=== PATIENT | female | born 1985 | race Asian ===

== ENCOUNTER 2019-09-07 15:32 | Emergency (ER) | payer MEDICAID, SELFPAY ==
--- NOTE | 2019-09-07 15:42 | ED.GENADULT ---
HPI - General Adult General Chief complaint: Nausea/Vomiting/Diarrhea Stated complaint: nausea/vomiting Time Seen by Provider: 09/07/19 15:43 Source: patient Mode of arrival: ambulatory Limitations: no limitations History of Present Illness HPI narrative: 34-year-old female patient presents to the [facility] with complaints of nausea and vomiting for the past couple of days. Patient denies any abdominal pain. Denies any fevers, ear pain, sore throat. Denies any chest pain or shortness of breath. Patient states that she thinks her last period was sometime in June but is not sure. Patient denies any previous pregnancies, abortions or miscarriages. Related Data Allergies Allergy/AdvReac Type Severity Reaction Status Date / Time No Known Allergies Allergy Verified 09/07/19 15:35 Review of Systems Review of Systems: Narrative: CONSTITUTIONAL: Denies fever, chills, or sweats. EYES: Denies visual changes, redness, or discharge. ENT: Denies rhinorrhea, congestion, sore throat, or otalgia. CARDIOVASCULAR: Denies chest pain, palpitations, or edema. RESPIRATORY: Denies cough or dyspnea. GASTROINTESTINAL: Denies abdominal pain, positive nausea, vomiting, denies diarrhea. GENITOURINARY: Denies dysuria or hematuria. SKIN: Denies rash or itching. MUSCULOSKELETAL: Denies back pain, joint pain, or myalgia. NEUROLOGIC: Denies headache, numbness, or weakness. PSYCHIATRIC: Denies anxiety or depression. PMFSH Social History Social History Gender identity (if verbalized by the patient): Female Comments At the time of my signature I agree with nursing past medical history, surgical, social, and family history. There is no relevant family history pertinent to the presenting complaint. Exam Narrative: Exam Narrative: GENERAL: Well-appearing, well-nourished, and in no acute distress. HEAD: Normocephalic, atraumatic. EYES: PERRLA and EOMI. ENT: Nares clear, no rhinorrhea or epistaxis. Mucous membranes moist. NECK: Supple. No lymphadenopathy CHEST: Clear to auscultation. No respiratory distress. HEART: Regular rate and rhythm. No murmur heard. Normal peripheral pulses. ABDOMEN: Soft, flat, nondistended. No guarding, rebound tenderness, or rigid. No pulsatilla masses. Bowel sounds present in all four quadrants. No organomegaly. Negative Chong?s sign. No periumbicial tenderness. No Supra public tenderness or distension. Good femoral pulses bilaterally. No hernia noted. No scars or surface trauma. EXTREMITIES: Normal range of motion. No edema. SKIN: Warm, dry, no rash. NEURO: No focal deficits. Alert and oriented x3. Course Vital Signs Vital signs: Vital Signs Temperature 36.6 C 09/07/19 15:43 Pulse Rate 84 09/07/19 15:43 Respiratory Rate 09/07/19 15:43 Blood Pressure 140/86 09/07/19 15:43 Pulse Oximetry 100 09/07/19 15:43 Temperature 36.6 C 09/07/19 15:43 Pulse Rate 84 09/07/19 15:43 Respiratory Rate 09/07/19 15:43 Blood Pressure 140/86 09/07/19 15:43 Pulse Oximetry 100 09/07/19 15:43 Vital signs reviewed. The patient has been informed that they may have pre-hypertension or Hypertension based on a BP reading in the department. I recommend that the patient call the primary care provider listed on their discharge instructions or a physician of their choice this week to arrange follow up for further evaluation of possible pre-hypertension or Hypertension Medical Decision Making Differential Diagnosis Differential Diagnosis: Differential diagnosis: Appendicitis, ovarian torsion, gallbladder disease, ovarian torsion, pancreatitis, lower lobe pneumonia,AAA, AMI or ACS, DKA, diverticulitis. Discussed with patient that her test today is positive. Discussed with her that her urine dip looks good today. Discussed with her most likely the nausea and vomiting is due to the first trimester . Discussed with patient that I will discharg
[2019-09-07 15:43] VITALS: BP 140/86; PULSE 84; RESP 20; TEMP 36.6; O2SAT 100
== END 2019-09-07 16:15 | disposition home or self-care (01) ==
PROVIDERS: Emergency Provider Nurse Practitioner Family
DX: O21.9 Vomiting of pregnancy, unspecified (principal); Z3A.00 Weeks of gestation of pregnancy not specified
CPT/HCPCS: 81003; 81025; 99213; G0463

== ENCOUNTER 2021-01-05 15:24 | Emergency (ER) | payer OTHER, SELFPAY ==
[2021-01-05 15:28] VITALS: BP 163/99; PULSE 103; RESP 17; TEMP 36.3; O2SAT 100
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
[2021-01-05 16:00] VITALS: BP 157/80; PULSE 77; RESP 20; O2SAT 100
== END 2021-01-05 16:25 | disposition home or self-care (01) ==
PROVIDERS: Emergency Provider Emergency Medicine
DX: S13.9XXA Sprain of joints and ligaments of unspecified parts of neck, initial encounter (principal); V49.49XA Driver injured in collision with other motor vehicles in traffic accident, initial encounter; Y92.481 Parking lot as the place of occurrence of the external cause
CPT/HCPCS: 99282

== ENCOUNTER 2021-03-18 12:22 | Emergency (ER) | payer OTHER, SELFPAY ==
--- NOTE | 2021-03-18 12:27 | ED.GENADULT ---
HPI - General Adult General Chief complaint: Arrhythmia/Palpitations Stated complaint: Chest pain Time Seen by Provider: 03/18/21 12:27 Source: patient Mode of arrival: ambulatory Limitations: no limitations History of Present Illness HPI narrative: 36-year-old female patient presents to the [facility] with complaints of palpitations that started this morning. Patient states she woke up feeling kind of lightheaded and immediately started having some palpitations. Patient denies any of these symptoms before. Denies any past medical history, medications. Patient states she does have a family history of hypertension. Patient states she recently tried to get off coughing with the green tea but did have some coffee today. Denies any chest pain, shortness of breath or vision changes at this time but continues to have lightheadedness and dizziness. Related Data Allergies Allergy/AdvReac Type Severity Reaction Status Date / Time No Known Allergies Allergy Verified 09/07/19 15:35 Review of Systems Review of Systems: CONSTITUTIONAL: Denies fever, chills, or sweats. EYES: Denies visual changes, redness, or discharge. ENT: Denies rhinorrhea, congestion, sore throat, or otalgia. CARDIOVASCULAR: Denies chest pain, positive palpitations, denies edema. RESPIRATORY: Denies cough or dyspnea. GASTROINTESTINAL: Denies abdominal pain, nausea, vomiting, or diarrhea. GENITOURINARY: Denies dysuria or hematuria. SKIN: Denies rash or itching. MUSCULOSKELETAL: Denies back pain, joint pain, or myalgia. NEUROLOGIC: Denies headache, numbness, or weakness. PSYCHIATRIC: Denies anxiety or depression. PMFSH Past Medical History Medical History (Updated 03/18/21 @ 13:01 by LEONARDA Espinosa) No significant past medical history Family History Family History (Updated 03/18/21 @ 12:54 by LEOANRDA Espinosa) Other Hypertension Social History Social History Gender identity (if verbalized by the patient): Female Comments At the time of my signature I agree with nursing past medical history, surgical, social, and family history. There is no relevant family history pertinent to the presenting complaint. Exam Narrative: GENERAL: Well-appearing, well-nourished, and in no acute distress. HEAD: Normocephalic, atraumatic. EYES: PERRLA and EOMI. ENT: Nares clear, no rhinorrhea or epistaxis. Mucous membranes moist. NECK: Supple. No lymphadenopathy CHEST: Clear to auscultation. No respiratory distress. Patient able talk in clear complete sentences HEART: Tachycardia rate and sinus rhythm. No murmur heard. Normal peripheral pulses. ABDOMEN: Soft, nontender, nondistended, normal active bowel sounds. EXTREMITIES: Normal range of motion. No edema. SKIN: Warm, dry, no rash. NEURO: No focal deficits. Alert and oriented x3. Course Course Level of Care: Express Care Visit Vital Signs Vital signs: Vital Signs Temperature 36.5 C 03/18/21 12:38 Pulse Rate 140 H 03/18/21 12:38 Respiratory Rate 20 03/18/21 12:38 Blood Pressure 166/96 H 03/18/21 12:38 Pulse Oximetry 100 03/18/21 12:38 Temperature 36.5 C 03/18/21 12:38 Pulse Rate 140 H 03/18/21 12:38 Respiratory Rate 20 03/18/21 12:38 Blood Pressure 166/96 H 03/18/21 12:38 Pulse Oximetry 100 03/18/21 12:38 Vital signs reviewed The patient has been informed that they may have pre-hypertension or Hypertension based on a BP reading in the department. I recommend that the patient call the primary care provider listed on their discharge instructions or a physician of their choice this week to arrange follow up for further evaluation of possible pre-hypertension or Hypertension Transfer Transfered to: [facility]: [facility] Transfer rationale: Palpitations with lightheadedness and dizziness Accepting physician: Dr. Valverde Transfer comments: Report given to Armando Matthews NP at [facility]. Discussed with them that
[2021-03-18 12:38] VITALS: BP 166/96; PULSE 140; RESP 20; TEMP 36.5; O2SAT 100
--- NOTE | 2021-03-18 12:39 | ECG_ITS ---
Measurements Intervals [place] Rate: 114 P: 61 KS: 200 QRS: 40 QRSD: 108 T: 31 QT: 309 QTc: 426 Interpretive Statements SINUS TACHYCARDIA BASELINE ARTIFACT- II, III, AVR, AVF, V1, V3-V6 ABNORMAL ECG Electronically Signed On 03-18-2021 14:59:37 STEELER by Taz Gordon D.O.
== END 2021-03-18 13:01 | disposition short-term general hospital (02) ==
PROVIDERS: Emergency Provider Nurse Practitioner Family
DX: R00.2 Palpitations (principal); R00.0 Tachycardia, unspecified
CPT/HCPCS: 93005; 99215; G0463

== ENCOUNTER 2021-03-18 13:17 | Observation (INO) | payer OTHER, SELFPAY ==
[2021-03-18] VITALS (30 sets, daily range): BP systolic 139–166; BP diastolic 86–101; PULSE 98–135; RESP 10–24; TEMP 36–36.9; O2SAT 77–100; BMI 20.1
--- NOTE | ~2021-03-18 | CT_ITS ---
EXAMINATION: CTA chest PE protocol DATE: 03/18/2021 15:07 INDICATION: Heart palpitations TECHNIQUE: Computed tomography angiography (CTA) of the chest was performed with 100 mL Omnipaque-350 intravenous contrast timed to evaluate the pulmonary arteries. Coronal maximum intensity projection 3D-reconstructions were created by the technologist. The dose-length product (DLP) was 165.30 mGy-cm. Automated exposure control and iterative reconstruction technique were employed. COMPARISON: None. FINDINGS: The pulmonary arteries are well-opacified. No pulmonary embolism is identified. Respiratory motion artifact slightly limits the examination. Calcified nodules and scarring in the superior segm ent of the right lower lobe likely reflect prior infection. The lungs are free of focal airspace opac ities. There is no pleural effusion or pneumothorax. No pathologically enlarged thoracic lymph nodes are identified. The heart size is normal. IMPRESSION: 1. No pulmonary embolism or acute cardiopulmonary abnormality. Reviewed, dictated and finalized at location F. TRONICS ENGINEERING PROFESSOR
--- NOTE | ~2021-03-18 | XR_ITS ---
EXAMINATION: XR chest 2V DATE: 03/18/2021 14:25 INDICATION: Heart palpitations, mild chills TECHNIQUE: PA and lateral views of the chest are obtained. COMPARISON: None available FINDINGS: The lungs are free of acute opacities. There is no pleural effusion or pneumothorax. The ca rdiomediastinal silhouette is normal. The visualized bones and soft tissues are unremarkable. IMPRESSION: 1. No acute cardiopulmonary abnormality. Reviewed, dictated and finalized at location F. ONAL GUIDE
--- NOTE | 2021-03-18 13:25 | ECG_ITS ---
Measurements Intervals [place] Rate: 130 P: 57 PA: 182 QRS: 40 QRSD: 96 T: 47 QT: 278 QTc: 409 Interpretive Statements SINUS TACHYCARDIA BORDERLINE ST-T WAVE ABNORMALITY- ANTEROLAT/INF LEADS BASELINE ARTIFACT- I, II, III, AVR, AVL, AVF ABNORMAL ECG Electronically Signed On 03-19-2021 7:09:15 WIRE HANGER by Taz Gordon D.O.
[2021-03-18 14:16] LABS: Basophils Absolute Auto 0.1 K/mm3 (0.0-0.1); Basophils Percent Auto 0.4 % (0.2-1.2); Eosinophils Percent Auto 0.2 % (0-4.4); Hematocrit 40.3 % (37.0-47.0); Hemoglobin 13.6 g/dL (12.0-15.0); Immature Granulocyte Absolute 0.06 K/mm3 (0.00-0.031); Immature Granulocyte Percent A 0.5 % (0-0.5); Lymphocytes Absolute Auto 1.52 K/mm3 (0.9-3.2); Lymphocytes Percent Auto 12.9 % (18.3-44.2); Mean Corpuscular HGB Conc 33.7 g/dl (32-36); Mean Corpuscular Hemoglobin 31.6 pg (26-34); Mean Corpuscular Volume 93.5 fl (80-100); Mean Platelet Volume 9.6 fl (7.4-10.4); Monocytes Absolute Auto 0.7 K/mm3 (0.1-0.6); Monocytes Percent Auto 5.5 % (2.6-8.5); Neutrophils Absolute Auto 9.5 K/mm3 (1.3-6.7); Neutrophils Percent Auto 80.5 % (45.5-73.1); Platelet Count Result 346 k/mm3 (150-375); Red Blood Count 4.31 M/mm3 (4.2-5.4); Red Cell Distribution Width 12.2 % (11.5-14.5); White Blood Count 11.8 K/mm3 (4.5-10.0)
[2021-03-18 14:25] LABS: Partial Thromboplastin Time 26.9 SECONDS (22.3-36.8); Prothrombin Time 12.8 Seconds (11.1-14.7)
[2021-03-18] MEDS: SODIUM CHLORIDE 0.9% IV 1,000 ML 999 ML IV CONT (14:28)
[2021-03-18 14:29] LABS: Alanine Aminotransferase 34 U/L (4-35); Albumin Level 4.4 g/dL (3.5-5.1); Alkaline Phosphatase 60 U/L (38-126); Anion Gap 12 mmol/L (8-16); Aspartate Amino Transferase 44 U/L (14-36); Bilirubin,Total 0.4 mg/dL (0.2-1.3); Blood Urea Nitrogen 12 mg/dL (7-17); Calcium 8.6 mg/dL (8.4-10.2); Carbon Dioxide 22 mmol/L (22-30); Chloride 100 mmol/L (98-107); Estimated Glomerular Filt Rate > 60; Glucose 137 mg/dL (65-110); Potassium 3.4 mmol/L (3.4-5.0); Sodium 134 mmol/L (137-145)
--- NOTE | 2021-03-18 14:32 | ED.ARRPALP ---
HPI - Arrhythmia/Palpitations General Chief Complaint: Arrhythmia/Palpitations Stated Complaint: Palpitations Time Seen by Provider: 03/18/21 13:25 History of Present Illness HPI narrative: Patient is a 36-year-old female who presents ER with palpitations. Reports she was sitting at home around 1130 when her heart started racing. No chest pain or difficulty with breathing. Patient was lightheaded but had no loss of consciousness. No weight loss. Reports she did drink some coffee today. Has not had similar symptoms previously. Originally went to urgent care but was referred here. Denies lower extremity swelling. No cough/fever/chills. Related Data Allergies Allergy/AdvReac Type Severity Reaction Status Date / Time No Known Allergies Allergy Verified 09/07/19 15:35 Review of Systems Review of Systems: All systems reviewed & are unremarkable except as noted in HPI and below Constitutional: Constitutional: Denies chills, Denies fever(s) and Denies weakness ENT: Denies nasal congestion and Denies sore throat Cardiovascular: Cardiovascular: Denies chest pain, Reports rapid heart rate and Denies radiating jaw, neck or arm pain Respiratory: Respiratory: Denies cough, Denies dyspnea and Denies wheezing Gastrointestinal: Gastrointestinal: Denies abdominal pain, Denies diarrhea, Denies nausea and Denies vomiting Neurologic: Denies dizziness, Denies syncope, Denies focal weakness and Denies numbness PMFSH Past Medical History Medical History (Updated 03/18/21 @ 18:43 by Grady Valverde MD) No significant past medical history Surgical History Surgical History (Updated 03/18/21 @ 18:41 by Grady Valverde MD) No pertinent past surgical history Family History Family History (Updated 03/18/21 @ 12:54 by LEONARDA Espinosa) Other Hypertension Social History Social History Gender identity (if verbalized by the patient): Female Exam Narrative: GENERAL: Well-appearing, well-nourished, and in no acute distress. HEAD: Normocephalic, atraumatic. NECK: Supple. CHEST: Clear to auscultation. No respiratory distress. HEART: Tachycardic and regular. Normal peripheral pulses. ABDOMEN: Soft, nontender, nondistended. EXTREMITIES: Normal range of motion. No edema. SKIN: Warm, dry, no rash. NEURO: Alert and oriented x3. PSYCH: Normal mood and affect. Course Course Emergency Course: Cardiology consulted. No recommendation for Lovenox or heparin as patient has had no active chest pain. Admit to hospitalist service. Patient reports she was COVID-positive with first symptoms on 03/04 and being diagnosed on 03/10. This may be causing some of her cardiac issues. Vital Signs Vital signs: Vital Signs Pulse Rate 119 H 03/18/21 13:17 Respiratory Rate 18 03/18/21 13:17 Blood Pressure 166/101 H 03/18/21 13:17 Pulse Oximetry 99 03/18/21 13:17 Temperature 98.4 F 03/18/21 13:25 Pulse Rate 113 H 03/18/21 18:15 Respiratory Rate 17 03/18/21 18:15 Blood Pressure 141/89 H 03/18/21 18:00 Pulse Oximetry 100 03/18/21 18:15 MDM - Arrhythmia/Palpitations Lab Data Result diagrams: 03/18/21 13:54 03/18/21 13:54 Labs: Lab Results 03/18/21 03/18/21 03/18/21 Range/Units 13:54 13:54 13:54 WBC 11.8 H (4.5-10.0) K/mm3 RBC 4.31 (4.2-5.4) M/mm3 Hgb 13.6 (12.0-15.0) g/dL Hct 40.3 (37.0-47.0) % MCV 93.5 (80-100) fl MCH 31.6 (26-34) pg MCHC 33.7 (32-36) g/dl RDW 12.2 (11.5-14.5) % Plt Count 346 (150-375) k/mm3 MPV 9.6 (7.4-10.4) fl Immature Gran % (Auto) 0.5 (0-0.5) % Neut % (Auto) 80.5 H (45.5-73.1) % Lymph % (Auto) 12.9 L (18.3-44.2) % Mclean % (Auto) 5.5 (2.6-8.5) % Eos % (Auto) 0.2 (0-4.4) % Baso % (Auto) 0.4 (0.2-1.2) % Lymph # (Auto) 1.52 (0.9-3.2) K/mm3 Mclean # (Auto) 0.7 H (0.1-0.6) K/mm3 Eos # (Auto) 0.0 (0-0.3
[2021-03-18 14:37] LABS: D Dimer 0.27 ug/mL (<0.48)
[2021-03-18 14:48] LABS: NT Pro B Type Natriuretic Pept 31 pg/mL (5-100); Troponin I 0.058 ng/mL (0.000-0.034)
[2021-03-18 17:11] LABS: Troponin I 0.149 ng/mL (0.000-0.034)
--- NOTE | 2021-03-18 17:23 | ECG_ITS ---
Measurements Intervals [place] Rate: 115 P: 56 MT: 167 QRS: 24 QRSD: 89 T: 30 QT: 302 QTc: 418 Interpretive Statements SINUS TACHYCARDIA DELAYED PRECORDIAL R/S TRANSITION ABNORMAL ECG Electronically Signed On 03-18-2021 20:11:18 AIRCRAFT STRUCTURAL FITTER by Taz Gordon D.O.
--- NOTE | 2021-03-18 17:45 | PM.IMHP ---
H&P: HPI History of Present Illness Date/Time: 03/18/21 17:45 Chief Complaint: Palpitations. Narrative: This is a previously healthy 36-year-old female who presented to the emergency department today from urgent care for evaluation of palpitations. Upon waking this morning she felt a bit lightheaded and slightly nauseated but she ate breakfast without issue. A couple of hours thereafter, simply while sitting down watching television, she developed feelings of racing heart associated with mild shortness of breath and lightheadedness. Due to persistent symptoms she went to urgent care where she was found to be in a sinus tachycardia with a rate of about 150. She was sent for a CTA of the chest on arrival to ER and that was unremarkable. Her EKG did not demonstrate any acute changes however her troponin was elevated and she is being admitted in this setting. With further questioning admits that she tested positive for COVID 19 on 03/10/2021 after developing symptoms of a sore throat on 03/04/2021 though she has felt better in that regard. She has not had any chest discomfort whatsoever and her only complaint at this time is of anxiety and she admits that she worries a lot and has been depressed recently due to the COVID pandemic and not being able to travel to the [facility] to see her family. She has never had similar symptoms in the past. She has no personal or family history of cardiac disease or cardiac dysrhythmia. She has no history of thyroid disease. She drinks perhaps 1 caffeinated beverage a day, typically a cup of coffee. She denies significant alcohol intake. No drug use. It should be noted that her blood pressures have been running a bit high and while this may very well be due to anxiety she has been told in the past that her blood pressures have been on the higher end of normal. Review of Systems Review of Systems: Twelve systems were reviewed. No headache. No sweating. No fever. She denies cough. No orthopnea, PND, or lower extremity edema. Weight has remained stable. No change in skin, hair, or nails. Denies diarrhea and constipation. No dysuria. Except as documented, all other systems were reviewed and are negative. [facility] Past Medical History Medical History (Updated 03/18/21 @ 23:38 by Macie Flores PA-C) Anxiety Surgical History Surgical History No pertinent past surgical history Family History Family History Sibling Hypertension Mother Hypertension Social History Social History (Updated 03/18/21 @ 23:32 by Macie Flores PA-C) Social History: The patient lives in [place]. Originally from the [facility]. She works at [employer]. Lifelong nonsmoker. Drinks perhaps 1 alcoholic beverage a week. No illicit substance use. Surrogate decision maker: Newton Keene. Code status: Full code. Meds Home Medications and Allergies Home Medications Medication Instructions Recorded Confirmed Type multivit with min-folic acid 1 tablet PO DAILY 03/18/21 03/18/21 History [Adult Multivitamin Gummies] Allergies Allergy/AdvReac Type Severity Reaction Status Date / Time No Known Allergies Allergy Verified 09/07/19 15:35 Vital Signs Vital Signs - 24 hr 03/18/21 13:17 03/18/21 13:25 03/18/21 13:26 Temperature 98.4 F Pulse Rate 119 H 118 H 117 H Respiratory Rate 18 18 18 Blood Pressure 166/101 H 166/101 H Pulse Oximetry 99 03/18/21 13:33 03/18/21 14:03 03/18/21 14:26 Temperature Pulse Rate 113 H 117 H 135 H Respiratory Rate 18 18 24 H Blood Pressure Pulse Oximetry 84 L 03/18/21 14:28 03/18/21 14:30 03/18/21 14:35 Temperature Pulse Rate 128 H 129 H 123 H Respiratory Rate 17 20 17 Blood Pressure 154/101 H 163/96 H Pulse Oximetry 03/18/21 15:08 03/18/21 15:09 03/18/21 15:15 Temperature Pulse Rate 122 H 121 H Respiratory Rate 15
[2021-03-18 17:55] LABS: Amphetamine Screen Urine Negative (Negative); Barbiturate Screen Urine Negative (Negative); Benzodiazepines Screen Urine Negative (Negative); Cannabinoid Screen Urine Negative (Negative); Cocaine Screen Urine Negative (Negative); Methadone Screen Urine Negative (Negative); Opiate Screen Urine Negative (Negative); Phencyclidine Screen Urine Negative (Negative)
[2021-03-18 18:07] LABS: SARS-CoV-2 RNA PCR Negative
--- NOTE | 2021-03-18 19:14 | ADMGEN ---
This patient, Elisabeth Johnson, was admitted to IMU Room 207-01. Patient/family oriented to hospital policies and general routines including ID bracelet, bed and alarms, visiting hours, pain management, procedures, bathroom and other care routines, personal items, smoking policy, room service/diet, and visiting hours. Information on how to activate the Rapid Response Team has been discussed. Patient/Family are encouraged to report perceived risks to care and to ask questions if they do not understand what they are told or what they should do.
[2021-03-18 20:12] LABS: Troponin I 0.117 ng/mL (0.000-0.034)
[2021-03-18] MEDS: SODIUM CHLORIDE 0.9% IV 1,000 ML 125 ML IV CONT (21:23)
[2021-03-19] VITALS (15 sets, daily range): BP systolic 118–149; BP diastolic 64–83; PULSE 61–101; RESP 14–24; TEMP 36.1–37; O2SAT 95–100
[2021-03-19 05:20] LABS: Hematocrit 34.3 % (37.0-47.0); Hemoglobin 11.4 g/dL (12.0-15.0); Mean Corpuscular HGB Conc 33.2 g/dl (32-36); Mean Corpuscular Volume 93.2 fl (80-100); Mean Platelet Volume 9.9 fl (7.4-10.4); Platelet Count Result 292 k/mm3 (150-375); Red Blood Count 3.68 M/mm3 (4.2-5.4); Red Cell Distribution Width 12.4 % (11.5-14.5); White Blood Count 9.9 K/mm3 (4.5-10.0)
[2021-03-19 05:44] LABS: Anion Gap 7 mmol/L (8-16); Blood Urea Nitrogen 6 mg/dL (7-17); Carbon Dioxide 23 mmol/L (22-30); Chloride 108 mmol/L (98-107); Estimated CRCL calculation 98 ml/min; Estimated Glomerular Filt Rate > 60; Glucose 97 mg/dL (65-110); Potassium 3.6 mmol/L (3.4-5.0); Sodium 138 mmol/L (137-145)
[2021-03-19] MEDS: SODIUM CHLORIDE 0.9% IV 1,000 ML 125 ML IV CONT ×2 (06:10→12:03)
[2021-03-19] MEDS: MULTIVITS W-FE,MIN CHEWABLE TABLET 1 TABLET PO (09:17)
[2021-03-19] MEDS: ENOXAPARIN 40 MG/0.4 ML SYRINGE SUB-Q (09:17)
--- NOTE | 2021-03-19 10:59 | PM.CNCAR ---
Assessment and Plan Assessment and plan (1) Elevated troponin: Code(s): R77.8 - Other specified abnormalities of plasma proteins Status: Acute Assessment and Plan: Uncertain cause. I do not think this is related to acute plaque rupture although troponins are elevated on 3 occasions. Considerations could be a myocarditis or myopericarditis from recent COVID infection. Obviously she is under some stress and has some significant anxiety issues it and could be stress-induced also. (2) Anxiety: Code(s): F41.9 - Anxiety disorder, unspecified Status: Acute Assessment and Plan: Recommend follow-up with her primary care provider (3) Elevated blood pressure reading: Code(s): R03.0 - Elevated blood-pressure reading, without diagnosis of hypertension Status: Acute Assessment and Plan: Likely has some degree of hypertension. Will start low-dose metoprolol tartrate 12.5 mg p.o. b.i.d. (4) Palpitations: Code(s): R00.2 - Palpitations Status: Acute Assessment and Plan: She does have palpitations. Sinus tachycardia is noted without other arrhythmia. Possibly anxiety related but given elevated troponins and recent COVID infection, cannot exclude myocarditis or myopericarditis. 2D echocardiogram Doppler is ordered and will be reviewed. Echocardiogram will not be performed though until tomorrow. Workup could be completed as an outpatient if she tolerates the low-dose metoprolol which I will initiate now. At this point though she is considering staying to have the echocardiogram performed before discharge. Will order free T4 level (5) History of COVID-19: Code(s): Z86.16 - Personal history of COVID-19 Status: Acute Assessment and Plan: Echocardiogram to be ordered (6) Hypokalemia: Code(s): E87.6 - Hypokalemia Status: Acute Assessment and Plan: Potassium level was low normal. Will replace today with 40 mEq p.o. x1. History of Present Illness History of Present Illness Consult date/time: 03/19/21 10:59 Requesting physician: Grady Valverde MD Consult reason: Other (Tachycardia, palpitations) Reason For Visit: Palpitations Narrative: Date of service 03/19/2021 Reason consultation tachycardia, palpitations Requesting provider: Dr. Valverde History patient is a 36-year-old female originally from [place] who came to the hospital because of palpitations. She was at home yesterday with her boyfriend whenever she had sudden onset of palpitations. No inciting or triggering event. She simply felt that her heart was beating fast and she was short of breath and lightheaded. She went to urgent care where she was found to be tachycardic with heart rate around 150. CT scan of chest was performed which was negative for pulmonary embolism. She then was sent to [facility] for further workup evaluation. She did have a troponin level which was elevated which did slightly rise and has since fallen. She admits to having significant amount of anxiety as well as some depression. She did have COVID a couple of weeks ago. She started having symptoms on March 04 and tested positive on the since started feel better within a couple of days of testing positive. Otherwise she denies any significant alcohol, tobacco or drug use history. She drinks 1 cup of coffee per day. She otherwise denies any paroxysmal nocturnal dyspnea, orthopnea, edema, syncope, chest pain. Review of Systems Review of Systems: All systems reviewed & are unremarkable except as noted in HPI and below Constitutional: Constitutional: Denies weakness Eyes: Eyes: Denies blurry vision ENT: Reports Normal hearing present Cardiovascular: Cardiovascular: Denies chest pain and Reports palpitations Respiratory: Respiratory: Reports dyspnea Gastrointestinal: Gastrointestinal: Denies abdominal pain Genitourinary: Genitourinary: Denies hematuria and Denies flan
[2021-03-19] MEDS: METOPROLOL TARTRATE 12.5 MG TABLET PO ×2 (12:01→21:20)
[2021-03-19] MEDS: POTASSIUM CHLORIDE 20 MEQ TABLET 40 MEQ PO (12:01)
--- NOTE | 2021-03-19 12:24 | PM.IMPN ---
Progress Note: A&P Assessment and Plan (1) Sinus tachycardia: Code(s): R00.0 - Tachycardia, unspecified Status: Inactive Assessment and Plan: The patient presents to the ER for evaluation of palpitations that occurred while sitting down watching television after drinking coffee with associated lightheadedness. She does admit to having stress and anxiety recently which I suppose could be playing a factor. She had no interventions in the emergency department and simply while sitting and talking with the patient and providing reassurance, her heart rate has started to come down. Her TSH was within normal limits. CTA of the chest showed no acute findings. Urine drug screen is pending though she denies history of drug use. She had 1 cup of coffee today however that is not unusual for her. She does not appear dehydrated. While she does have isolated elevations in her blood pressure to the 150 systolic, I think this is most likely due to anxiety. Pheochromocytoma seems less likely. She reportedly tested positive for COVID on 03/10/2021 (negative on today's test) thus myocarditis could be a possibility as well. At this time, she is feeling well with only a few episodes of palpitations today and one while talking to the career coach and she states she was feeling very anxious. Telemetry shows no acute arrhythmia and no more tachycardia in the 130s. Cardiology started on Metoprolol 12.5 mg Cardiology evaluated the patient and due to her elevated troponins, tachycardia, recent COVID illness, we will obtain an echocardiogram which will be completed tomorrow. Continue monitoring telemetry monitoring her symptoms. If everything looks normal she could probably be discharged tomorrow after Cardiology evaluates her and goes of her echo results. She is are stable at this time. Continue close monitoring on telemetry. Her blood pressures will be monitored closely and we will initiate antihypertensives if indicated. Appreciate Cardiology input. (2) Palpitations: Code(s): R00.2 - Palpitations Status: Acute (3) Elevated troponin: Code(s): R77.8 - Other specified abnormalities of plasma proteins Status: Acute (4) Anxiety: Code(s): F41.9 - Anxiety disorder, unspecified Status: Acute (5) Elevated blood pressure reading: Code(s): R03.0 - Elevated blood-pressure reading, without diagnosis of hypertension Status: Acute Time Spent With Patient Time with patient: 25 - 35 minutes Subjective Date/time seen: 03/19/21 12:24 Interval history: Date of Service 03/19/21: Patient states she is feeling well today and had some short palpitation episodes prior to seeing the career coach and during the conversation with the career coach. She is currently not having any chest pain, shortness of breath, cough, nausea, vomiting, abdominal pain, leg swelling, calf pain, or any other symptoms at this time. She was positive for COVID on March 10, 2021 and her symptoms started March 04, 2021. Review of Systems Review of Systems: All systems reviewed & are unremarkable except as noted in HPI and below Exam Narrative: General: 36-year-old woman laying flat in bed, watching TV. Appears comfortable. In no acute distress. Skin: No jaundice or cyanosis. Good skin turgor. Neck: Full range of motion. Supple. Respiratory: Lungs are clear to auscultation bilaterally. No bony chest wall tenderness. Cardiovascular: The heart has a regular rate and rhythm without murmur. Telemetry shows normal sinus rhythm with a rate of 65 beats per minute, no more significant tachycardia episodes since admission. No acute arrhythmia noted Lower extremities: No lower extremity edema. Distal pulses are easily palpated. No calf tenderness to palpation. Gastrointestinal: The abdomen is soft, nontender and nondistended with active bowel sounds. Psychiatric: Lucid and oriented. Memory intact. Neurologic: No focal deficits. Speech i
[2021-03-19] MEDS: MELATONIN 5 MG TABLET PO (21:20)
[2021-03-20] VITALS (8 sets, daily range): BP systolic 117–131; BP diastolic 67–84; PULSE 52–93; RESP 16–20; TEMP 36.2–36.4; O2SAT 99–100
[2021-03-20 05:51] LABS: Hematocrit 36.3 % (37.0-47.0); Hemoglobin 12.3 g/dL (12.0-15.0); Mean Corpuscular HGB Conc 33.9 g/dl (32-36); Mean Corpuscular Hemoglobin 31.9 pg (26-34); Mean Corpuscular Volume 94.3 fl (80-100); Mean Platelet Volume 9.7 fl (7.4-10.4); Platelet Count Result 274 k/mm3 (150-375); Red Blood Count 3.85 M/mm3 (4.2-5.4); Red Cell Distribution Width 12.3 % (11.5-14.5); White Blood Count 5.9 K/mm3 (4.5-10.0)
[2021-03-20 06:07] LABS: Alanine Aminotransferase 35 U/L (4-35); Alkaline Phosphatase 45 U/L (38-126); Anion Gap 7 mmol/L (8-16); Aspartate Amino Transferase 35 U/L (14-36); Bilirubin,Total 0.5 mg/dL (0.2-1.3); Blood Urea Nitrogen 6 mg/dL (7-17); Carbon Dioxide 26 mmol/L (22-30); Chloride 106 mmol/L (98-107); Estimated CRCL calculation 97 ml/min; Estimated Glomerular Filt Rate > 60; Glucose 97 mg/dL (65-110); Potassium 3.9 mmol/L (3.4-5.0); Sodium 139 mmol/L (137-145)
[2021-03-20] MEDS: ENOXAPARIN 40 MG/0.4 ML SYRINGE SUB-Q (08:54)
[2021-03-20] MEDS: METOPROLOL TARTRATE 12.5 MG TABLET PO (08:54)
[2021-03-20] MEDS: MULTIVITS W-FE,MIN CHEWABLE TABLET 1 TABLET PO (08:55)
--- NOTE | 2021-03-20 13:29 | PM.PNCARD ---
Progress Note: A&P Additional Plan Symptomatic sinus tachycardia in this otherwise healthy-appearing 36-year-old lady. Doubt that this was due to coronavirus as the PCR here at [facility] was negative. She is doing well tolerating low-dose of metoprolol. Echocardiogram was essentially unremarkable other than a trivial jet of MR. I am going to recommend continuing low-dose metoprolol will transition it to metoprolol succinate for her convenience. Follow-up will be made with Dr. Benítez in our office. Okay for discharge at this time Vic Curry MD [facility] Subjective Date/time seen: Date of service: 03/20/21 13:29 Interval history: Follow-up visit in this 36-year-old woman with: Sinus tachycardia following what was suspected COVID-19 infection recently [place]. PCR in this hospital however was negative. She is asymptomatic today other than some mild lightheadedness/dizziness. No longer tachycardic telemetry shows sinus rhythm heart rate in the 60s and 70s. Exam Const: General: comfortable and no acute distress Other: Healthy-appearing female no apparent distress HENMT: Mouth: Yes moist mucous membranes Eyes: Sclera: sclerae normal Pupils: Equal, round and reactive pupils present Neck: Neck: supple and no JVD Resp: Effort & Inspection: normal respiratory effort Auscultation: clear to auscultation bilaterally Cardio: Rate: regular rate Rhythm: regular rhythm Other: No murmur no gallop no rub GI: GI Palp: Yes Soft to palpation Auscultation: normal bowel sounds Skin: General skin exam: normal color Neuro: Cognition (Neuro): normal cognition Extrem: General: normal to inspection Objective Data Vital Signs Vital Signs: Vital Signs - 24 hr 03/19/21 14:00 03/19/21 16:00 03/19/21 18:00 Temperature 36.5 C Pulse Rate 77 71 95 Respiratory Rate 16 Blood Pressure 120/67 Pulse Oximetry 99 03/19/21 20:00 03/19/21 21:20 03/19/21 22:00 Temperature 36.5 C Pulse Rate 78 80 68 Respiratory Rate 24 H Blood Pressure 122/68 Pulse Oximetry 96 03/19/21 23:36 03/20/21 02:00 03/20/21 03:32 Temperature 36.2 C L Pulse Rate 78 54 L 52 L Respiratory Rate 20 20 Blood Pressure 122/64 Pulse Oximetry 100 100 01/24/22 04:00 03/20/21 06:00 03/20/21 08:00 Temperature 36.4 C L 36.2 C L Pulse Rate 60 56 L 78 Respiratory Rate 16 18 Blood Pressure 131/84 117/75 Pulse Oximetry 99 100 03/20/21 08:54 03/20/21 10:00 03/20/21 12:00 Temperature 36.2 C L Pulse Rate 93 72 70 Respiratory Rate 16 Blood Pressure 117/67 Pulse Oximetry 99 Intake/Output Intake/Output: Intake & Output 03/17/21 03/18/21 03/19/21 03/20/21 23:59 23:59 23:59 23:59 Intake Total 1000 2740 320 Balance 1000 2740 320 Meds/Results Medications: Active Medications Generic Name Dose Route Start Last Admin Trade Name Freq PRN Reason Stop Dose Admin Acetaminophen 650 mg 03/18/21 16:35 Acetaminophen 325 Mg Tablet PO Q4H PRN Mild Pain (1-3) or Fever Hydrocodone Bitart/Acetaminophen 1 tab 03/18/21 16:35 Hydrocodone/Acetaminophen (*Crx) 5-325 Mg Tablet PO Q4H PRN Pain Rated 4-6 Enoxaparin Sodium 40 mg 03/19/21 09:00 03/20/21 08:54 Enoxaparin 40 Mg/0.4 Ml Syringe SUB-Q 40 mg DAILY JAMEY Administration Melatonin 5 mg 03/19/21 21:00 03/19/21 21:20 Melatonin 5 Mg Tablet PO 5 mg HS JAMEY Administration Metoprolol Succinate 25 mg 03/21/21 09:00 Metoprolol Succinate Ext Rel 25 Mg Tabcr PO QAM JAMEY Morphine Sulfate 4 mg 03/18/21 16:35 Morphine Sulfate (*Crx) 4 Mg/Ml Inj IV PUSH Q2H PRN Pain Rated 7-10 Multivitamins/Minerals 1 tablet 03/19/21 09:00 03/20/21 08:55 Multivits W-Fe,Min Chewable Tablet PO 1 tablet DAILY JAMEY Administration Ondansetron HCl 4 mg 03/18/21 16:35 Ondansetron Inj 4 Mg/2 Ml Vial IV PUSH Q4H PRN Nausea Radiology Results: ITS Impressions Chest X-Ray 03/18/21 14:
--- NOTE | 2021-03-20 14:51 | PM.DS ---
DS: Admitting Diagnosis Discharge Date 03/20/21 Admitting Diagnosis Chest pain DS: Discharge Diagnosis Discharge Diagnosis (1) Sinus tachycardia: Code(s): R00.0 - Tachycardia, unspecified Status: Inactive (2) Palpitations: Code(s): R00.2 - Palpitations Status: Acute (3) Elevated troponin: Code(s): R77.8 - Other specified abnormalities of plasma proteins Status: Acute (4) Anxiety: Code(s): F41.9 - Anxiety disorder, unspecified Status: Acute (5) Elevated blood pressure reading: Code(s): R03.0 - Elevated blood-pressure reading, without diagnosis of hypertension Status: Acute DS: Summary Hospital Course Reason for hospitalization: 36yo healthy female here for chest pain. Please see H&P for details Hospital Course: The patient presents to the ER for evaluation of palpitations that occurred while sitting down watching television after drinking coffee with associated lightheadedness. She does admit to having stress and anxiety recently which could be playing a factor. She had no interventions in the emergency department and simply while sitting and talking with the patient and providing reassurance, her heart rate has started to come down. Her TSH was within normal limits. CTA of the chest showed no acute findings. Urine drug screen was negative. While she does have isolated elevations in her blood pressure to the 150 systolic, possibly due to anxiety. She reportedly tested positive for COVID on 03/10/2021 but was negative here. Troponin peaked at 0.149 but EKG showing sinus tachycardia. Echo was essentially normal except for trivial MR. She was started on metoprolol. IV fluids given as well. She had clinical improvement. Cardiology followed along but did not recommend ischemic evaluation. Deondre overall did well and was able to be discharged home on 03/20/21 Status at Discharge Cognitive/behavioral status at discharge: Stable Time Spent with Patient Time attestation: Total time spent providing and/or coordinating discharge services:35 minutes Time spent: Greater than 30 minutes Exam Narrative: AF 97.1 117/67 70 16 99% ra Gen - NARD Chest - CTA bilaterally, nml RR CV - RRR S1/S2 Abd - Soft, NT/ND, Positive BS Ext - No pedal edema Neuro - Alert and oriented. Nonfocal exam. Psych - Nml mood and affect Skin - Warm and dry DS: Data Data Completed and Pending Labs on day of discharge: Labs from last 24 hours 03/20/21 03/20/21 05:22 05:22 WBC 5.9 RBC 3.85 L Hgb 12.3 Hct 36.3 L MCV 94.3 MCH 31.9 MCHC 33.9 RDW 12.3 Plt Count 274 MPV 9.7 Sodium 139 Potassium 3.9 Chloride 106 Carbon Dioxide 26 Anion Gap 7 L BUN 6 L Creatinine 0.60 L Estim Creat Clear Calc 97 Estimated GFR > 60 Glucose 97 Calcium 9.0 Magnesium 2.0 Total Bilirubin 0.5 AST 35 ALT 35 Alkaline Phosphatase 45 Total Protein 7.0 Albumin 4.0 Discharge Plan Discharge Attending physician on discharge: Kyrie Painting Consulting providers: Marco A Benítez Discharging Clinician: Kyrie Painting Anticipated Discharge Date/Time: 03/20/21 15:01 Patient Disposition: Home, Self-Care Activity: as tolerated Diet: regular Discharge Instructions: Please avoid large gathering, wear face coverings in public and practice social distance. Contact your doctor or call 911 and come to the Emergency Room if you have recurrent chest pain or other worrisome symptoms. Avoid NSAIDs (ibuprofen, naproxen, Aleve). Tylenol is safe to take. Follow-up with your primary care doctor in 1-2 weeks. Please call for appointment. Follow-up with the Radioisotope Technologist in 3-4 weeks. Please call for an appointment. Patient Instructions: Antibiotic Form Stand Alone Forms: General Discharge Information Follow-up/Referrals: Marco A Benítez MD [Physician] - Call for Appointment Zenon Dao MD [Physician] -
--- NOTE | 2021-03-20 16:12 | PC.NURSE ---
03/20/21 15:59 Patient discharged to home. Education was provided on follow-up appointments and prescription. Patient had no further questions at this time.
--- NOTE | 2021-03-20 23:45 | ECHO_ITS ---
Patient Info Name: Elisabeth Johnson Age: 36 years : 1985 Gender: Female Ht: 66 in Wt: 125 lbs BSA: 1.62 m2 HR: 90 bpm BP: 131 / 84 mmHg Heart Rhythm: Sinus Rhythm Exam Date: 03/20/2021 10:02 AM Exam Location: [facility] Pulmonary Patient Status: Inpatient Admit Date: 03/18/2021 Staff Ordering Physician: Macie Flores PA-C Mold Polisher: Yaron Chong RDCS, RT Attending Provider: Ria Villareal PA-C Referring Physician: Mark GRANT; Exam Type: CA echo doppler color flow Study Info Indications R00.0 - Tachycardia, unspecified Complete two-dimensional, color flow and Doppler transthoracic echocardiogram is performed. Strain analysis performed. Summary 1. Complete two-dimensional, color flow and Doppler transthoracic echocardiogram is performed. 2. Trivial amount of mitral valve regurgitation. 3. Otherwise unremarkable echocardiogram. Left Ventricle Left ventricular chamber dimension is normal. Left ventricular systolic function is normal, estimated at 60-65%. The left ventricular diastolic function is normal. Right Ventricle Right ventricular chamber dimension is normal. Left Atria Left atrial chamber dimension is normal. Right Atria Right atrial chamber dimension is normal. Aortic Valve The aortic valve is normal. Pulmonic Valve The pulmonic valve is normal. Mitral Valve The mitral valve has normal leaflets. There is trace mitral valve regurgitation. Tricuspid Valve The tricuspid valve leaflets are normal. Pericardium/Pleural The pericardium appears normal. Aorta The aortic root size at the sinus of Valsalva is normal. Left Ventricular Outflow Tract Name Value Normal LVOT 2D LVOT Diameter 1.9 cm LVOT Doppler LVOT Peak Gradient 4 mmHg LVOT Mean Gradient 2 mmHg LVOT VTI 19 cm LVOT VTI/AV VTI Ratio 0.7 LVOT Stroke Volume 53 ml Mitral Valve Name Value Normal MV Doppler MV Decel [place] 614 cm/s2 MV PHT 54 ms MV Area (PHT) 4.0 cm2 4.0-5.0 MV Diastolic Function MV E Peak Velocity 115 cm/s MV A Peak Velocity 67 cm/s MV E/A 1.7 MV Decel Time 188 ms Tricuspid Valve Name Value Normal TV Diastolic Function RV MPI
== END 2021-03-20 15:59 | disposition home or self-care (01) ==
LOC: ANHED 16:44 → ANHIMU 17:07
PROVIDERS: Internal Medicine Cardiovascular Disease; Physician Assistant; Admitting Provider Family Medicine; Emergency Provider Emergency Medicine; Visit Provider Internal Medicine
DX: R77.8 Other specified abnormalities of plasma proteins (principal); R03.0 Elevated blood-pressure reading, without diagnosis of hypertension; R00.0 Tachycardia, unspecified; R00.2 Palpitations; E87.6 Hypokalemia; F41.9 Anxiety disorder, unspecified; Z20.822 Contact with and (suspected) exposure to COVID-19; Z86.16 Personal history of COVID-19
CPT/HCPCS: 36415; 71046; 71275; 80048; 80053; 80307; 81025; 83735; 83880; 84436; 84443; 84484; 85025; 85027; 85380; 85610; 85730; 93005; 93306; 96360; 96361; 96372; 99215; 99285; A9270; C9803; G0378; G0463; J1650; J7030; Q9967; U0003; U0005

== ENCOUNTER 2021-03-24 12:49 | Emergency (ER) | payer OTHER, SELFPAY ==
--- NOTE | 2021-03-24 12:58 | ED.GENADULT ---
HPI - General Adult General Chief complaint: Allergic Reaction Stated complaint: medication reaction Time Seen by Provider: 03/24/21 12:58 Source: patient Mode of arrival: ambulatory Limitations: no limitations History of Present Illness HPI narrative: 36-year-old female presented for complaint of concern about side effects of new medication. She endorses feeling nervous, diarrhea, decreased appetite, shortness of breath at rest or with exertion, hands and feet sweating. She endorses starting metoprolol on 03/20/2021 upon discharge from the hospital. She had been seen at [facility] 03/18, and was sent to the ER for complaint of palpitations with a heart rate of 140. She was admitted for elevated troponin, echo was essentially normal. Cardiology did not perform ischemic work-up. She is scheduled to follow-up with cardiology next week. She states her primary care provider was referred to her upon discharge from the hospital, she saw them once and was prescribed sertraline but has not been taking it as directed. She states she is nervous about the interactions between the 2 medications. Denies cp, dizziness, syncope, vomiting, fever/chills. Booster today. Endorses feeling safe at home but scared to be alone, family is in [facility]. Related Data Home Medications Medication Instructions Recorded Confirmed Adult Multivitamin Gummies 1 tablet PO DAILY 03/18/21 03/18/21 sertraline 25 mg PO DAILY 03/24/21 03/24/21 Allergies Allergy/AdvReac Type Severity Reaction Status Date / Time No Known Allergies Allergy Verified 03/24/21 13:02 Review of Systems Review of Systems: CONSTITUTIONAL: Denies body aches, fever, chills, or sweats. EYES: Denies visual changes, redness, or discharge. ENT: Denies rhinorrhea, congestion, sore throat, or otalgia. CARDIOVASCULAR: Denies chest pain, palpitations, or edema. RESPIRATORY: Endorses dyspnea, denies cough, wheezing GASTROINTESTINAL: Endorses diarrhea, decreased appetite. Denies abdominal pain, nausea, vomiting GENITOURINARY: Denies dysuria or hematuria. SKIN: Denies rash, itching, or wounds. MUSCULOSKELETAL: Denies back pain, joint pain, or myalgia. NEUROLOGIC: Denies headache, numbness, tingling, or weakness. PSYCH: Denies depression or anxiety. All systems reviewed & are unremarkable except as noted in HPI and below PMFSH Past Medical History Medical History (Updated 03/24/21 @ 13:34 by Darleen Saini APRN) Anxiety History of COVID-19 Surgical History Surgical History No pertinent past surgical history Family History Family History Sibling Hypertension Mother Hypertension Social History Social History Social History: The patient lives in [place]. Originally from the [facility]. She works at [employer]. Lifelong nonsmoker. Drinks perhaps 1 alcoholic beverage a week. No illicit substance use. Surrogate decision maker: Newton Keene. Code status: Full code. Comments At time of signature, I have reviewed and agree with nursing past medical, surgical, social and family history unless otherwise noted. Please see nursing chart for further information. There is no relevant family history pertinent to the presenting complaint Exam Narrative: GENERAL: Well-appearing, well-nourished, and in no acute distress. States 'I feel nervous.' HEAD: Normocephalic, atraumatic. EYES: EOMI. No redness or drainage. Conjunctivae normal. ENT: Mucous membranes pink and moist. No rhinorrhea. TMs normal bilaterally. NECK: Normal AROM. Supple. No lymphadenopathy. CHEST: No respiratory distress. Clear to auscultation. HEART: Regular rate and rhythm. No murmur appreciated. Normal peripheral pulses. ABDOMEN: Soft, nontender, nondistended, normal active bowel sounds. MUSCULOSKELETAL: No bony tenderness. EXTREMIT
== END 2021-03-24 13:38 | disposition home or self-care (01) ==
PROVIDERS: Emergency Provider Nurse Practitioner Family; PCP Emergency Medicine
DX: R06.02 Shortness of breath (principal); F41.9 Anxiety disorder, unspecified; Z86.16 Personal history of COVID-19
CPT/HCPCS: 99211; G0463

== ENCOUNTER 2021-03-26 11:38 | Emergency (ER) | payer OTHER, SELFPAY ==
--- NOTE | ~2021-03-26 | XR_ITS ---
EXAMINATION: XR chest 2V DATE: 03/26/2021 12:09 INDICATION: Shortness of breath. TECHNIQUE: Frontal and lateral views of the chest were obtained. COMPARISON: Chest 2 views 03/18/2021, chest CT 03/18/2021 FINDINGS: The chest demonstrates clear lungs without pneumonia, pleural effusion, or pneumothorax. Th e heart size is normal. IMPRESSION: 1. No acute cardiopulmonary disease. Reviewed, dictated and finalized at location A. STER OPERATOR
[2021-03-26 11:42] VITALS: BP 159/86; PULSE 77; RESP 18; TEMP 36.3; O2SAT 100
--- NOTE | 2021-03-26 11:47 | ECG_ITS ---
Measurements Intervals [place] Rate: 63 P: 60 RI: 151 QRS: 33 QRSD: 98 T: 31 QT: 410 QTc: 423 Interpretive Statements SINUS RHYTHM BASELINE ARTIFACT- II, III, AVR, AVL, AVF, V1, V3-V6 NORMAL ECG Electronically Signed On 03-26-2021 16:22:43 WINDING LATHE OPERATOR by Taz Gordon D.O.
[2021-03-26 12:09] LABS: Basophils Percent Auto 0.5 % (0.2-1.2); Eosinophils Percent Auto 0.7 % (0-4.4); Hematocrit 40.8 % (37.0-47.0); Hemoglobin 13.8 g/dL (12.0-15.0); Immature Granulocyte Absolute 0.01 K/mm3 (0.00-0.031); Immature Granulocyte Percent A 0.2 % (0-0.5); Lymphocytes Absolute Auto 0.91 K/mm3 (0.9-3.2); Lymphocytes Percent Auto 16.5 % (18.3-44.2); Mean Corpuscular HGB Conc 33.8 g/dl (32-36); Mean Corpuscular Hemoglobin 31.7 pg (26-34); Mean Corpuscular Volume 93.8 fl (80-100); Mean Platelet Volume 9.7 fl (7.4-10.4); Monocytes Absolute Auto 0.5 K/mm3 (0.1-0.6); Monocytes Percent Auto 9.6 % (2.6-8.5); Neutrophils Percent Auto 72.5 % (45.5-73.1); Platelet Count Result 340 k/mm3 (150-375); Red Blood Count 4.35 M/mm3 (4.2-5.4); Red Cell Distribution Width 12.3 % (11.5-14.5); White Blood Count 5.5 K/mm3 (4.5-10.0)
[2021-03-26 12:19] LABS: Partial Thromboplastin Time 28.3 SECONDS (22.3-36.8); Prothrombin Time 12.8 Seconds (11.1-14.7)
[2021-03-26 12:20] LABS: Alanine Aminotransferase 32 U/L (4-35); Albumin Level 4.7 g/dL (3.5-5.1); Alkaline Phosphatase 64 U/L (38-126); Anion Gap 8 mmol/L (8-16); Aspartate Amino Transferase 28 U/L (14-36); Bilirubin,Total 0.6 mg/dL (0.2-1.3); Blood Urea Nitrogen 8 mg/dL (7-17); Calcium 9.3 mg/dL (8.4-10.2); Carbon Dioxide 29 mmol/L (22-30); Chloride 100 mmol/L (98-107); Estimated CRCL calculation 85 ml/min; Estimated Glomerular Filt Rate > 60; Glucose 117 mg/dL (65-110); Lipase 101 U/L (23-300); Potassium 3.7 mmol/L (3.4-5.0); Sodium 137 mmol/L (137-145)
[2021-03-26 12:31] LABS: Troponin I < 0.012 ng/mL (0.000-0.034)
[2021-03-26 12:46] VITALS: BP 133/86; PULSE 66; RESP 17; O2SAT 98
--- NOTE | 2021-03-26 13:23 | ED.ARRPALP ---
HPI - Arrhythmia/Palpitations General Chief Complaint: Arrhythmia/Palpitations Stated Complaint: SOB after taking metoprolol Time Seen by Provider: 03/26/21 12:40 Source: patient Mode of arrival: ambulatory Limitations: no limitations History of Present Illness HPI narrative: Patient is 36 female presents with intermittent chest pain, palpitation, shortness of breath for the last few weeks patient was seen recently in our emergency room and started on metoprolol and sertraline. Patient scheduled to see a marketing rep tomorrow. Patient lives alone, lost her 3 years ago, does not have kids. Related Data Home Medications Medication Instructions Recorded Confirmed Adult Multivitamin Gummies 1 tablet PO DAILY 03/18/21 03/24/21 sertraline 25 mg PO DAILY 03/24/21 03/24/21 Allergies Allergy/AdvReac Type Severity Reaction Status Date / Time No Known Allergies Allergy Verified 03/26/21 11:48 Review of Systems Review of Systems: CONSTITUTIONAL: Denies fever, chills, or sweats. EYES: Denies visual changes, redness, or discharge. ENT: Denies rhinorrhea, congestion, sore throat, or otalgia. CARDIOVASCULAR: Denies chest pain, palpitations, or edema. RESPIRATORY: Denies cough or dyspnea. GASTROINTESTINAL: Denies abdominal pain, nausea, vomiting, or diarrhea. GENITOURINARY: Denies dysuria or hematuria. SKIN: Denies rash or itching. MUSCULOSKELETAL: Denies back pain, joint pain, or myalgia. NEUROLOGIC: Denies headache, numbness, or weakness. PSYCHIATRIC: Denies anxiety or depression. [facility] Past Medical History Medical History Anxiety History of COVID-19 Surgical History Surgical History No pertinent past surgical history Family History Family History Sibling Hypertension Mother Hypertension Social History Social History Social History: The patient lives in [place]. Originally from the [facility]. She works at [employer]. Lifelong nonsmoker. Drinks perhaps 1 alcoholic beverage a week. No illicit substance use. Surrogate decision maker: Newton Keene. Code status: Full code. Exam Narrative: General appearance: Well-developed, well-nourished Skin: Normal color Head: Normocephalic, nontraumatic Eyes: Clear conjunctiva ENT: Oropharynx normal, ears normal, nose normal Neck: Supple, nontender Chest and respiratory: Airway patent, no respiratory distress, no accessory muscle use Heart: Regular rate/rhythm Abdomen: Soft, nontender, no organomegaly, quiet bowel sounds Vascular: Normal peripheral pulses, normal capillary refill. Musculoskeletal: Normal range of motion, nontender back Neurologic: Alert and oriented ?3, BOX TOE MAKER is normal as tested, no gross motor deficit Course Course Emergency Course: Stable Vital Signs Vital signs: Vital Signs Temperature 36.3 C L 03/26/21 11:42 Pulse Rate 77 03/26/21 11:42 Respiratory Rate 18 03/26/21 11:42 Blood Pressure 159/86 H 03/26/21 11:42 Pulse Oximetry 100 03/26/21 11:42 Temperature 36.3 C L 03/26/21 11:42 Pulse Rate 66 03/26/21 12:46 Respiratory Rate 17 03/26/21 12:46 Blood Pressure 133/86 03/26/21 12:46 Pulse Oximetry 98 03/26/21 12:46 MDM - Arrhythmia/Palpitations MDM Narrative Medical decision making narrative: Anxiety-like symptoms is my concern Differential Diagnosis Differential diagnosis: Likely palpitations and anxiety Lab Data Result diagrams: 03/26/21 11:59 03/26/21 11:59 Labs: Lab Results
[2021-03-26 13:46] VITALS: BP 133/86; PULSE 65; RESP 16; O2SAT 100
== END 2021-03-26 13:46 | disposition home or self-care (01) ==
PROVIDERS: Emergency Medicine; Emergency Provider Emergency Medicine; PCP Emergency Medicine
DX: F41.9 Anxiety disorder, unspecified (principal); Z86.16 Personal history of COVID-19
CPT/HCPCS: 36415; 71046; 80053; 83690; 84484; 85025; 85610; 85730; 93005; 99284

== ENCOUNTER 2021-04-02 10:59 | Emergency (ER) | payer OTHER, SELFPAY ==
--- NOTE | ~2021-04-02 | XR_ITS ---
XR abdomen/kub 1V 04/02/2021 12:01 INDICATION: Right-sided abdomen pain TECHNIQUE: KUB COMPARISON: None FINDINGS: Bowel gas pattern is normal. There is no evidence of free air, mass, organomegaly, ascites or obstruction. No abnormal calculi are seen. The bones appear intact. IMPRESSION: 1: No acute abdominal abnormality identified. Reviewed, dictated and finalized at location A. RVISOR FABRICATION
[2021-04-02 11:09] VITALS: BP 142/84; PULSE 115; RESP 18; TEMP 37; O2SAT 99
--- NOTE | 2021-04-02 11:09 | ED.ABDPAIN ---
HPI - Abdominal Pain General Chief Complaint: Abdominal Pain Stated Complaint: Pain on right side Time Seen by Provider: 04/02/21 11:11 Source: patient Mode of arrival: ambulatory Limitations: no limitations History of Present Illness HPI narrative: 36-year-old female presented for complaints of right lower abdominal pain. Onset last night. States she ate dinner and drank some hot chocolate then developed the pain for which she took an antacid tablet. This morning she was able to eat toast and drink water without difficulty. Endorses one episode of mild diarrhea today. She states the pain is about a 2 out of 10. Denies associated nausea, vomiting, urinary complaints, irregular vaginal bleeding, fever or chills. No abdominal surgeries. Pt is not taking metoprolol or sertraline as prescribed during hospitalization 03/22/21. Denies palpitations, cp, sob or dizziness. LMP end of February. Related Data Home Medications Medication Instructions Recorded Confirmed Adult Multivitamin Gummies 1 tablet PO DAILY 03/18/21 03/24/21 Allergies Allergy/AdvReac Type Severity Reaction Status Date / Time No Known Allergies Allergy Verified 03/26/21 11:48 Review of Systems Review of Systems: CONSTITUTIONAL: Denies body aches, fever, chills EYES: Denies visual changes ENT: Denies rhinorrhea, congestion CARDIOVASCULAR: Denies chest pain, palpitations, or edema. RESPIRATORY: Denies cough or dyspnea. GASTROINTESTINAL: Endorses RLQ abdominal pain, diarrhea. Denies nausea, vomiting,hematochezia, melena GENITOURINARY: Denies dysuria, hematuria, or CVA tenderness. SKIN: Denies rash, itching, or wounds. MUSCULOSKELETAL: Denies back pain, joint pain, or myalgia. NEUROLOGIC: Denies headache, numbness, tingling, or weakness. PSYCH: Denies mood change All systems reviewed & are unremarkable except as noted in HPI and below PMFSH Past Medical History Medical History Anxiety History of COVID-19 Surgical History Surgical History No pertinent past surgical history Family History Family History Sibling Hypertension Mother Hypertension Social History Social History Social History: The patient lives in [place]. Originally from the [facility]. She works at [employer]. Lifelong nonsmoker. Drinks perhaps 1 alcoholic beverage a week. No illicit substance use. Surrogate decision maker: Newton Keene. Code status: Full code. Comments At time of signature, I have reviewed and agree with nursing past medical, surgical, social and family history unless otherwise noted. Please see nursing chart for further information. There is no relevant family history pertinent to the presenting complaint Exam Narrative: GENERAL: Well-appearing, well-nourished, and in no acute distress. HEAD: Normocephalic, atraumatic. EYES: EOMI. Conjunctivae normal. ENT: Mucous membranes pink and moist. NECK: Normal AROM. Supple. CHEST: No respiratory distress. Clear to auscultation. HEART: Regular rate and rhythm. No murmur appreciated. Normal peripheral pulses. ABDOMEN: Tender abdomen RLQ, No guarding, rebound tenderness, asymmetry; abd soft, nondistended, normal active bowel sounds. MUSCULOSKELETAL: No bony tenderness. EXTREMITIES: Normal range of motion. No edema. SKIN: Warm, dry, no rash. Capillary refill normal. Normal skin turgor. NEURO: No focal deficits. Alert and oriented x3. Gait steady. PSYCH: Normal affect. Course Course Emergency Course: KUB and urine were unremarkable. We discussed reasons to seek care in the emergency room including concern for ovarian torsion or appendicitis, she is aware to watch for abdominal pain, nausea, vomiting, diarrhea, hematochezia, melena, fever or chills. v/u. Patient is aware of
== END 2021-04-02 12:45 | disposition home or self-care (01) ==
PROVIDERS: Emergency Provider Nurse Practitioner Family; PCP Emergency Medicine
DX: R10.31 Right lower quadrant pain (principal); Z86.16 Personal history of COVID-19
CPT/HCPCS: 74018; 81003; 99213; G0463

== ENCOUNTER 2021-04-02 16:56 | Observation (INO) | payer OTHER, SELFPAY ==
[2021-04-02] VITALS (20 sets, daily range): BP systolic 118–141; BP diastolic 81–106; PULSE 79–113; RESP 12–21; TEMP 36.3–36.4; O2SAT 99–100
--- NOTE | ~2021-04-02 | XR_ITS ---
EXAMINATION: XR abdomen obstructive series DATE: 04/03/2021 09:05 INDICATION: Diverticulitis. Assess for free air. TECHNIQUE: Frontal supine and upright views of the abdomen were obtained. COMPARISON: None. FINDINGS: Small amount of gas scattered throughout the nondilated loops of bowel. No pneumatosis or dilated loo ps of bowel to suggest obstruction. No free intraperitoneal gas. Visualized lung bases are clear. H eart size is normal. IMPRESSION: 1. No free intraperitoneal gas or dilated gas-filled loops of bowel to suggest obstruction. Reviewed, dictated and finalized at location A. ESTATE RECRUITER
--- NOTE | ~2021-04-02 | CT_ITS ---
EXAMINATION: CT abdomen pelvis w con EXAM DATE: 04/02/2021 21:23 INDICATION: RLQ pain TECHNIQUE: Spiral CT of the abdomen and pelvis was performed following intravenous injection of 100 m L Omnipaque 350. Axial, coronal and sagittal images of the abdomen and pelvis were reviewed. The do se-length product (DLP) for this examination was 202.38 mGy-cm. The exposure was tailored according to patient size (auto mA exposure control), and iterative reconstruction (ASIR) was used as additiona l dose reduction technique. There is no prior study for comparison. FINDINGS: Normal appendix. There are scattered colonic diverticula including at the hepatic flexure w here there is moderate amount of pericolonic inflammation. Most likely acute diverticulitis. There is small focus of colonic gas in the region which is possibly extraluminal, possible microperforation i ndicated on axial image 69. No abscess or gross free intraperitoneal gas. The liver, spleen, adrenal glands and pancreas are unremarkable. Gallbladder is unremarkable. No bi liary obstruction. Portal and splenic veins are patent. Kidneys enhance symmetrically. There is no hydronephrosis. Regions of bilateral renal cortical scarring, prior infection or infarction. The ut erus is anteverted and morphologically normal. The bladder is unremarkable. There is no retroperit clark or pelvic lymphadenopathy. The heart is normal in size. There are no pericardial or pleural effusions. The lung bases are unremarkable. There are no osteoblastic or osteolytic lesions identif ied. IMPRESSION: 1. Hepatic flexure colonic diverticulosis with moderate adjacent inflammation and suspicion of micro perforation. No abscess or gross free intraperitoneal gas. 2. Normal appendix. Reviewed, dictated and finalized at location G. H DESIZING RANGE TENDER IMPRESSION: 1. Hepatic flexure colonic diverticulosis with moderate adjacent inflammation and suspicion of microperforation. No abscess or gross free intraperitoneal gas . 2. Normal appendix.
[2021-04-02 20:49] LABS: Basophils Percent Auto 0.2 % (0.2-1.2); Hematocrit 41.7 % (37.0-47.0); Hemoglobin 13.8 g/dL (12.0-15.0); Immature Granulocyte Absolute 0.06 K/mm3 (0.00-0.031); Immature Granulocyte Percent A 0.4 % (0-0.5); Lymphocytes Absolute Auto 0.98 K/mm3 (0.9-3.2); Lymphocytes Percent Auto 6.2 % (18.3-44.2); Mean Corpuscular HGB Conc 33.1 g/dl (32-36); Mean Corpuscular Hemoglobin 31.6 pg (26-34); Mean Corpuscular Volume 95.4 fl (80-100); Mean Platelet Volume 9.4 fl (7.4-10.4); Monocytes Absolute Auto 1.2 K/mm3 (0.1-0.6); Monocytes Percent Auto 7.5 % (2.6-8.5); Neutrophils Absolute Auto 13.7 K/mm3 (1.3-6.7); Neutrophils Percent Auto 85.7 % (45.5-73.1); Platelet Count Result 365 k/mm3 (150-375); Red Blood Count 4.37 M/mm3 (4.2-5.4); Red Cell Distribution Width 12.9 % (11.5-14.5); White Blood Count 15.9 K/mm3 (4.5-10.0)
[2021-04-02 20:52] LABS: Add Urine Microscopic? YES; Appearance Urine Clear (Clear); Bilirubin Urine Negative (Negative); Blood Urine 1+ (Negative); Color Urine Colorless (Yellow); Glucose Urine UA Negative (Negative); Ketones Urine Trace mg/dL (Negative); Leukocyte Esterase Ur Negative LEU/UL (Negative); Nitrate Urine Negative (Negative); Protein Urine Negative (Negative); RBC Urine 0-2 /hpf (0-2); Squamous Epithelial Cell Urine Rare /hpf (Few); Urobilinogen Urine Negative mg/dL (<2.0); WBC Urine 0-3 /hpf
[2021-04-02 20:55] LABS: Specific Grav Ur 1.002 (1.001-1.035)
[2021-04-02 21:02] LABS: Alanine Aminotransferase 21 U/L (4-35); Albumin Level 4.7 g/dL (3.5-5.1); Alkaline Phosphatase 58 U/L (38-126); Anion Gap 9 mmol/L (8-16); Aspartate Amino Transferase 26 U/L (14-36); Bilirubin,Total 0.9 mg/dL (0.2-1.3); Blood Urea Nitrogen 6 mg/dL (7-17); Calcium 9.6 mg/dL (8.4-10.2); Carbon Dioxide 28 mmol/L (22-30); Chloride 99 mmol/L (98-107); Estimated CRCL calculation 94 ml/min; Estimated Glomerular Filt Rate > 60; Glucose 126 mg/dL (65-110); Lipase 41 U/L (23-300); Potassium 3.5 mmol/L (3.4-5.0); Sodium 136 mmol/L (137-145)
--- NOTE | 2021-04-02 21:14 | PC.NURSE ---
Patient being taken to CT.
--- NOTE | 2021-04-02 21:37 | ED.ABDPAIN ---
HPI - Abdominal Pain General Chief Complaint: Abdominal Pain <RAMON Rowland Last Filed: 04/02/21 22:22> Stated Complaint: ABD PAIN <RAMON Rowland Last Filed: 04/02/21 22:22> Time Seen by Provider: 04/02/21 20:19 <RAMON Rowland Last Filed: 04/02/21 22:22> Source: patient <RAMON Rowland Last Filed: 04/02/21 22:22> Mode of arrival: ambulatory <RAMON Rowland Last Filed: 04/02/21 22:22> Limitations: no limitations <RAMON Rowland Last Filed: 04/02/21 22:22> History of Present Illness HPI narrative: This is a 36-year-old female that presents to the emergency department for right sided abdominal pain present since last night. Reports an achy constant pain in the right side of the abdomen. She was evaluated at urgent care earlier today and had a normal abdomen x-ray. She continued to have pain which prompted her to be seen. She does report one episode of diarrhea today. Denies fever, vomiting, or dysuria. <RAMON Rowland Last Filed: 04/02/21 22:22> Related Data Home Medications: Home Medications Medication Instructions Recorded Confirmed Adult Multivitamin Gummies 1 tablet PO DAILY 03/18/21 03/24/21 <RAMON Rowland Last Filed: 04/02/21 22:22> Allergies/Adverse Reactions: Allergies Allergy/AdvReac Type Severity Reaction Status Date / Time No Known Allergies Allergy Verified 04/02/21 20:27 <RAMON Rowland Last Filed: 04/02/21 22:22> Review of Systems Review of Systems: CONSTITUTIONAL: Denies fever GASTROINTESTINAL: Reports abdominal pain, and diarrhea. GENITOURINARY: Denies dysuria <RAMON Rowland Last Filed: 04/02/21 22:22> All systems reviewed & are unremarkable except as noted in HPI and below <RAMON Rowland Last Filed: 04/02/21 22:22> [facility] Past Medical History Medical History: Medical History Anxiety History of COVID-19 <Caty Patel PA-C - Last Filed: 04/02/21 22:22> Surgical History Surgical History: Surgical History No pertinent past surgical history <Caty Patel PA-C - Last Filed: 04/02/21 22:22> Family History Family History: Family History Sibling Hypertension Mother Hypertension <RAMON Rowland Last Filed: 04/02/21 22:22> Social History Social History: Social History Social History: The patient lives in [place]. Originally from the [facility]. She works at [employer]. Lifelong nonsmoker. Drinks perhaps 1 alcoholic beverage a week. No illicit substance use. Surrogate decision maker: Newton Keene. Code status: Full code. <Caty Patel PA-C - Last Filed: 04/02/21 22:22> Exam Narrative: GENERAL: Well-appearing, well-nourished, and in no acute distress. HEAD: Normocephalic, atraumatic. EYES: EOMI. CHEST: Clear to auscultation. No respiratory distress. No wheezes rales or rhonchi HEART: Regular rate and rhythm. No murmur heard. Normal peripheral pulses. ABDOMEN: Soft, nondistended, normal active bowel sounds. Tender to palpation throughout the right side of the abdomen, without guarding EXTREMITIES: Normal range of motion. No edema. SKIN: Warm, dry, no rash. NEURO: No focal deficits. Alert and oriented x3. PSYCH: Normal mood and affect <Caty Patel PA-C - Last Filed: 04/02/21 22:22> Course RIGGER CHIEF/PA Physician Supervision Patient seen and examined, vital signs stable, not in any acute distress, regular rate and rhythm, clear to auscultation bilaterally, tenderness on palpation lower abdominal area, guarding. Awake and oriented x 4. Agreed with current plan treatment <Matthew Fernandes MD - Last Filed: 04/02/21 23:17> Consultations Consultatio
[2021-04-02] MEDS: SODIUM CHLORIDE 0.9% IV 1,000 ML 999 ML IV CONT (21:55)
[2021-04-02 22:57] LABS: SARS-CoV-2 RNA PCR Negative
[2021-04-02] MEDS: metroNIDAZOLE 500 MG/ISO 100ML 500 MG/100 ML BAG 100 MG IVPB (22:57)
[2021-04-03] VITALS: BP 124/84; PULSE 75; RESP 17; TEMP 36.7; O2SAT 100
--- NOTE | 2021-04-03 00:19 | ADMGEN ---
This patient, Elisabeth Johnson, was admitted to Medical Room 349-01. Patient/family oriented to hospital policies and general routines including ID bracelet, bed and alarms, visiting hours, pain management, procedures, bathroom and other care routines, personal items, smoking policy, room service/diet, and visiting hours. Information on how to activate the Rapid Response Team has been discussed. Patient/Family are encouraged to report perceived risks to care and to ask questions if they do not understand what they are told or what they should do.
[2021-04-03 00:20] VITALS: BMI 19.3
[2021-04-03] MEDS: SODIUM CHLORIDE 0.9% IV 1,000 ML 125 ML IV CONT ×2 (00:48→13:00)
[2021-04-03 00:54] VITALS: BP 134/85; PULSE 82; RESP 16; TEMP 36.6; O2SAT 100
[2021-04-03] MEDS: metroNIDAZOLE 500 MG/ISO 100ML 500 MG/100 ML BAG 100 MG IVPB ×4 (05:38→23:02)
[2021-04-03 06:26] LABS: Basophils Percent Auto 0.1 % (0.2-1.2); Eosinophils Percent Auto 0.1 % (0-4.4); Hematocrit 36.6 % (37.0-47.0); Hemoglobin 12.1 g/dL (12.0-15.0); Immature Granulocyte Absolute 0.07 K/mm3 (0.00-0.031); Immature Granulocyte Percent A 0.5 % (0-0.5); Lymphocytes Absolute Auto 0.76 K/mm3 (0.9-3.2); Lymphocytes Percent Auto 5.2 % (18.3-44.2); Mean Corpuscular HGB Conc 33.1 g/dl (32-36); Mean Corpuscular Hemoglobin 31.3 pg (26-34); Mean Corpuscular Volume 94.6 fl (80-100); Mean Platelet Volume 9.6 fl (7.4-10.4); Monocytes Percent Auto 6.7 % (2.6-8.5); Neutrophils Absolute Auto 12.7 K/mm3 (1.3-6.7); Neutrophils Percent Auto 87.4 % (45.5-73.1); Platelet Count Result 319 k/mm3 (150-375); Red Blood Count 3.87 M/mm3 (4.2-5.4); White Blood Count 14.6 K/mm3 (4.5-10.0)
[2021-04-03 06:37] LABS: Alanine Aminotransferase 42 U/L (4-35); Albumin Level 3.7 g/dL (3.5-5.1); Alkaline Phosphatase 47 U/L (38-126); Anion Gap 3 mmol/L (8-16); Aspartate Amino Transferase 51 U/L (14-36); Blood Urea Nitrogen 5 mg/dL (7-17); Calcium 8.2 mg/dL (8.4-10.2); Carbon Dioxide 25 mmol/L (22-30); Chloride 107 mmol/L (98-107); Estimated CRCL calculation 94 ml/min; Estimated Glomerular Filt Rate > 60; Glucose 102 mg/dL (65-110); Potassium 3.7 mmol/L (3.4-5.0); Sodium 135 mmol/L (137-145)
[2021-04-03 09:33] VITALS: BP 129/78; PULSE 87; RESP 20; TEMP 36.1; O2SAT 100
[2021-04-03 09:49] LABS: Magnesium 2.1 mg/dL (1.6-2.3)
[2021-04-03 14:19] VITALS: BP 120/74; PULSE 80; RESP 20; TEMP 36.2; O2SAT 100
--- NOTE | 2021-04-03 15:11 | PM.IMHP ---
H&P: HPI History of Present Illness Date/Time: 04/03/21 09:31 Chief Complaint: RLQ abdominal pain Narrative: This is a 36-year-old female who is otherwise healthy, who presented to the ER yesterday with complaints of RLQ abdominal pain. She reports having a gradual onset of RLQ abdominal pain two days ago. She also reports nausea in the morning, but no vomiting, bloating, fever, or chills. She also reports one episode of a loose brown stool yesterday, but no further diarrhea. Denies hematochezia or melena. She initially presented to the [facility] urgent care yesterday when her pain was more mild. She denies any aggravating symptoms. She reportedly tried taking Tums at home without relief. The urgent care did a urinalysis and KUB that were unremarkable. She was instructed to take Tylenol for her pain and follow-up with her PCP. She reports her abdominal pain did not improve after going home and she presented to the ER for evaluation. While waiting in the ER, she does report her pain started intensifying. CT scan of the abdomen and pelvis suggested diverticulitis of the hepatic flexure with possible microperforation. Labs showed a WBC count of 15,900. Her heart rate was 115 in the ER. She has been afebrile and vital signs otherwise stable. Our service was consulted by the ED physician and she has been admitted in this setting. She was started on IV Levaquin and IV Flagyl. The patient is now seen on the medical floor and is NPO. She reports feeling much better and actually feeling hungry this morning. She denies any abdominal pain, nausea, or bloating at this time. She reports flatus, but no BM since her loose stool yesterday. Denies ever having this pain in the past or previous episodes of diverticulitis. No previous colonoscopy. No previous abdominal surgery. Also to note, she was hospitalized at [facility] from 03/18/21 - 03/20/21 for palpitations. She had a CTA of the chest and echocardiogram that was unremarkable. She had elevated troponin and Cardiology followed but did not recommend further ischemic work-up. She had isolated episodes of hypertension as well. She was started on metoprolol and discharged home. She reports that she was since instructed to stop taking this medication due to some side effects of shortness of breath. She reports her SOB has resolved. Review of Systems Review of Systems: All systems reviewed & are unremarkable except as noted in HPI and below Constitutional: Constitutional: Reports as per HPI, Denies chills, Denies fatigue and Denies fever(s) Eyes: Eyes: Reports no additional eye complaints ENT: Reports system reviewed and no additional complaints, except as documented and Reports Normal hearing present Cardiovascular: Cardiovascular: Reports no additional cardiovascular complaints, Denies chest pain and Denies leg edema Respiratory: Respiratory: Reports no additional respiratory complaints, Denies cough and Denies dyspnea Gastrointestinal: Gastrointestinal: Reports as per HPI, Reports no additional gastrointestinal complaints, Reports abdominal pain, Denies melena, Denies bloating, Denies hematochezia, Denies change in bowel habits, Denies constipation, Reports loose stools and Denies vomiting Genitourinary: Genitourinary: Denies hematuria and Denies dysuria Musculoskeletal: Musculoskeletal: Denies deformity and Denies joint swelling Integumentary/Breasts: Skin/Breast: Denies jaundice Neurologic: Reports system reviewed and no additional complaints, except as documented, Denies dizziness, Denies focal weakness, Denies numbness and Denies tingling Psychiatric: Psychiatric: Reports anxiety (hx of anxiety) [facility] Past Medical History Medical History Anxiety History of COVID-19 Surgical History Surgical History No pertinent past surgical history Family History Family History (Reviewed 04/03/21 @ 15:
[2021-04-03] MEDS: ONDANSETRON INJ 4 MG/2 ML VIAL IV PUSH (18:32)
[2021-04-03] MEDS: SODIUM CHLORIDE 0.9% IV 1,000 ML 75 ML IV CONT (21:19)
[2021-04-03 21:22] VITALS: RESP 16; O2SAT 100
[2021-04-03 21:50] VITALS: BP 124/76; PULSE 61; RESP 16; TEMP 36.3; O2SAT 100
[2021-04-04] MEDS: metroNIDAZOLE 500 MG/ISO 100ML 500 MG/100 ML BAG 100 MG IVPB (05:32)
[2021-04-04 05:52] VITALS: BP 117/71; PULSE 65; RESP 18; TEMP 36.3; O2SAT 100
[2021-04-04 06:10] LABS: Basophils Percent Auto 0.5 % (0.2-1.2); Eosinophils Percent Auto 0.3 % (0-4.4); Hematocrit 33.5 % (37.0-47.0); Immature Granulocyte Absolute 0.03 K/mm3 (0.00-0.031); Immature Granulocyte Percent A 0.4 % (0-0.5); Lymphocytes Absolute Auto 1.11 K/mm3 (0.9-3.2); Lymphocytes Percent Auto 14.3 % (18.3-44.2); Mean Corpuscular HGB Conc 32.8 g/dl (32-36); Mean Corpuscular Volume 97.4 fl (80-100); Mean Platelet Volume 9.3 fl (7.4-10.4); Monocytes Absolute Auto 0.5 K/mm3 (0.1-0.6); Neutrophils Percent Auto 77.5 % (45.5-73.1); Platelet Count Result 266 k/mm3 (150-375); Red Blood Count 3.44 M/mm3 (4.2-5.4); White Blood Count 7.8 K/mm3 (4.5-10.0)
[2021-04-04 06:21] LABS: Alanine Aminotransferase 25 U/L (4-35); Albumin Level 3.3 g/dL (3.5-5.1); Alkaline Phosphatase 44 U/L (38-126); Anion Gap 7 mmol/L (8-16); Aspartate Amino Transferase 22 U/L (14-36); Bilirubin,Total 0.6 mg/dL (0.2-1.3); Blood Urea Nitrogen 6 mg/dL (7-17); Calcium 7.8 mg/dL (8.4-10.2); Carbon Dioxide 20 mmol/L (22-30); Chloride 107 mmol/L (98-107); Estimated CRCL calculation 94 ml/min; Estimated Glomerular Filt Rate > 60; Glucose 78 mg/dL (65-110); Potassium 3.5 mmol/L (3.4-5.0); Sodium 134 mmol/L (137-145)
[2021-04-04 08:04] VITALS: BP 117/77; PULSE 75; RESP 18; TEMP 36.2; O2SAT 100
[2021-04-04 10:47] VITALS: BP 150/74
[2021-04-04 10:48] VITALS: BP 157/94; BP 161/89
[2021-04-04] MEDS: SODIUM CHLORIDE 0.9% IV 1,000 ML 75 ML IV CONT ×2 (11:14→15:38)
--- NOTE | 2021-04-04 11:30 | PCDIET ---
Dietitian Consult for Low fiber vs High fiber. See Nutritional Teaching Intervention. Thank you for the consult.
--- NOTE | 2021-04-04 11:43 | PM.PNGS ---
Progress Note: A&P Assessment and Plan (1) Diverticulitis of intestine with perforation: Qualifiers: Diverticulitis bleeding: without bleeding Diverticulitis site: large intestine Qualified Code(s): K57.20 - Diverticulitis of large intestine with perforation and abscess without bleeding Code(s): K57.80 - Diverticulitis of intestine, part unspecified, with perforation and abscess without bleeding Status: Acute Assessment and Plan: Diverticulitis at hepatic flexure with possible microperforation noted on CT. Clinically improving, WBC normal today, afebrile. Will start advancing her diet to low fiber. Bunker Worker will be seeing the patient today. Will check Orthostatic BP due to her light-headedness, if this worsens or she has additional symptoms, may need to consider Hospitalist consultation given her recent hospitalization for palpitations. Switch her IV antibiotics to oral antibiotics today. Repeat labs tomorrow. Encouraged walking the halls. Additional Plan I have discussed the patient's case and plan of care with Dr. Gao. To note, she did have an isolated elevation in her BP this morning. Will recheck and continue to monitor. She did recently stop the metoprolol that she was started on during her hospitalization last month. If her BP remains high, then we may need to consult Hospitalist to evaluate. Subjective Subjective Date/Time Seen: 04/04/21 11:00 Patient reports: no new complaints, feels better, pain is less, tolerating liquids well, voiding w/o difficulty, flatus, no bowel movement and afebrile Interval history: Patient seen and examined. She denies nausea, vomiting, or bloating this morning. She reports having some nausea last night after her clear liquid tray for dinner and through the night, but this improved with zofran. She reports lots of flatus, but no BM. She reports her right-sided abdominal pain continues to improve and is very mild today, only rating this at a 1/10 on a pain scale. She does complain of some light-headedness when she stands up out of bed. No dizziness, palpitations, shortness of breath, or chest pain. Review of Systems Review of Systems: All systems reviewed & are unremarkable except as noted in HPI and below Gastrointestinal: Gastrointestinal: Reports as per HPI and Reports no additional gastrointestinal complaints Exam Const: General: no acute distress, alert and awake Orientation/consciousness: patient oriented x3 Resp: Effort & Inspection: no respiratory distress Auscultation: clear to auscultation bilaterally Cardio: Rate: regular rate Rhythm: regular rhythm GI: Inspection: normal to inspection and non-distended GI Palp: Yes Soft to palpation, Yes Tenderness to palpation present (GI) (very mild tenderness in RUQ and RLQ), No Guarding due to palpation present (GI), No Hernia present and No Rebound tenderness present Percussion: Yes normal to percussion Auscultation: normal bowel sounds Skin: General skin exam: normal color Neuro: General: moves all extremities and no focal motor deficits Extrem: General: normal to inspection and no clubbing, cyanosis or edema Psych: Insight: Good insight present (Psych) Judgement: Good judgement present (Psych) Objective Data Vital Signs Vital Signs: Vital Signs - 24 hr 04/03/21 14:19 04/03/21 21:22 04/03/21 21:50 Temperature 97.1 F L 97.3 F L Pulse Rate 80 61 Respiratory Rate 20 16 16 Blood Pressure 120/74 124/76 Pulse Oximetry 100 100 100 04/04/21 05:52 04/04/21 08:04 04/04/21 10:47 Temperature 97.4 F L 97.2 F L Pulse Rate 65 75 Respiratory Rate 18 18 Blood Pressure 117/71 117/77 150/74 H Pulse Oximetry 100 100 04/04/21 10:48 Temperature Pulse Rate Respiratory Rate Blood Pressure 161/89 H Pulse Oximetry Intake/Output Intake/Output: Intake & Output 04/01/21 04/02/21 04/03/21 04/04/21 23:59 23:59 23:59 23:59 Intake Total 1200 2840 320 Output Total 1400 700 Ba
[2021-04-04 11:49] VITALS: BP 144/77; PULSE 72; RESP 20; TEMP 37.7; O2SAT 100
[2021-04-04] MEDS: metroNIDAZOLE 250 MG TABLET 500 MG PO ×2 (13:35→20:45)
--- NOTE | 2021-04-04 14:02 | PC.NURSE ---
On 04/04/21, the student, Lety Montenegro, provided care and completed [facility] documentation on this patient. I have reviewed the student's documentation and agree with the findings.
[2021-04-04] MEDS: levoFLOXacin 750 MG TABLET PO (20:45)
[2021-04-04 22:00] VITALS: BP 133/93; PULSE 60; RESP 18; TEMP 35.9; O2SAT 100
[2021-04-05] MEDS: metroNIDAZOLE 250 MG TABLET 500 MG PO ×2 (05:12→13:44)
[2021-04-05] MEDS: SODIUM CHLORIDE 0.9% IV 1,000 ML 75 ML IV CONT (05:12)
[2021-04-05 05:57] VITALS: BP 137/87; PULSE 71; RESP 18; TEMP 35.9; O2SAT 100
[2021-04-05 06:13] LABS: Hematocrit 37.3 % (37.0-47.0); Hemoglobin 12.3 g/dL (12.0-15.0); Mean Corpuscular Hemoglobin 31.5 pg (26-34); Mean Corpuscular Volume 95.6 fl (80-100); Mean Platelet Volume 9.4 fl (7.4-10.4); Platelet Count Result 326 k/mm3 (150-375); Red Cell Distribution Width 12.9 % (11.5-14.5); White Blood Count 6.6 K/mm3 (4.5-10.0)
[2021-04-05 06:26] LABS: Anion Gap 10 mmol/L (8-16); Blood Urea Nitrogen 3 mg/dL (7-17); Calcium 8.3 mg/dL (8.4-10.2); Carbon Dioxide 22 mmol/L (22-30); Chloride 105 mmol/L (98-107); Estimated CRCL calculation 94 ml/min; Estimated Glomerular Filt Rate > 60; Glucose 120 mg/dL (65-110); Sodium 137 mmol/L (137-145)
[2021-04-05] MEDS: ONDANSETRON INJ 4 MG/2 ML VIAL IV PUSH (07:05)
--- NOTE | 2021-04-05 12:24 | PM.DS ---
DS: Admitting Diagnosis Discharge Date 04/05/21 Admitting Diagnosis Diverticulitis at the hepatic flexure with micro perforation DS: Discharge Diagnosis Discharge Diagnosis (1) Diverticulitis of intestine with perforation: Qualifiers: Diverticulitis bleeding: without bleeding Diverticulitis site: large intestine Qualified Code(s): K57.20 - Diverticulitis of large intestine with perforation and abscess without bleeding Code(s): K57.80 - Diverticulitis of intestine, part unspecified, with perforation and abscess without bleeding Status: Acute Assessment and Plan: Diverticulitis at hepatic flexure with possible microperforation noted on CT. Clinically improving, WBC normal today, afebrile. Will start advancing her diet to low fiber. Metal Bonding Assembler will be seeing the patient today. Will check Orthostatic BP due to her light-headedness, if this worsens or she has additional symptoms, may need to consider Hospitalist consultation given her recent hospitalization for palpitations. Switch her IV antibiotics to oral antibiotics today. Repeat labs tomorrow. Encouraged walking the halls. (2) Hypokalemia: Code(s): E87.6 - Hypokalemia Status: Acute Assessment and Plan: Mild hypokalemia treated with oral KCL supplementation. Repeat BMP in 2 days and follow-up with PCP. (3) Elevated blood pressure reading: Code(s): R03.0 - Elevated blood-pressure reading, without diagnosis of hypertension Status: Acute Assessment and Plan: Isolated elevation in BP yesterday. Monitored and stable since. BP today is normal with SBP in 130's. Follow-up with PCP for blood pressure recheck. DS: Summary Hospital Course Reason for hospitalization: This is a 36-year-old female who presented to the ER with complaints of right-sided abdominal pain. She was found to have diverticulitis of the hepatic flexure with possible microperforation on CT scan. Labs showed leukocytosis. She was admitted in this setting and started on IV antibiotics. Hospital Course: The patient was treated with IV Levaquin/IV Flagyl, bowel rest, analgesics, and IV fluids. She was monitored closely with serial abdominal exams and plain films. Her repeat abdominal films did not show any free intraperitoneal gas. She clinically improved with antibiotic treatment and bowel rest. She was slowly advanced to a low fiber diet. We consulted a retort setter to educate the patient on low versus high fiber diets. She did report some lightheadedness yesterday. Orthostatic BP was unremarkable. She had not been taking in much oral fluids and this did resolve with hydration. She denies any of these complaints today. Her abdominal pain improved and her WBC count is now down to normal. She is afebrile. Today, she denies any abdominal pain at all. She is tolerating a low fiber diet and denies nausea, vomiting, or bloating. She is moving her bowels today as well with two loose BMs. She was switched to oral antibiotics yesterday and continues to do well. Will discharge the patient today. Status at Discharge Functional status at discharge: independent ambulation Overall status at discharge: patient is back to baseline Time Spent with Patient Time attestation: Total time spent providing and/or coordinating discharge services: Time spent: Greater than 30 minutes Exam Const: General: no acute distress, alert and awake Orientation/consciousness: patient oriented x3 Resp: Effort & Inspection: no respiratory distress Auscultation: clear to auscultation bilaterally Cardio: Rate: regular rate Rhythm: regular rhythm GI: Inspection: non-distended GI Palp: Yes Soft to palpation, No Tenderness to palpation present (GI), No Guarding due to palpation present (GI), No Hernia present and No Rebound tenderness present Auscultation: normal bowel sounds Neuro: General: moves all extremities and no focal motor deficits Extrem: General: normal to inspection Psych: Insight: Good i
[2021-04-05] MEDS: POTASSIUM CHLORIDE 20 MEQ PACKET (FOR LIQUID) 40 MEQ PO (15:22)
== END 2021-04-05 16:37 | disposition home or self-care (01) ==
LOC: ANHED 22:20 → ANH3MED 23:47
PROVIDERS: Nurse Practitioner Family; Physician Assistant; Admitting Provider Surgery; Emergency Provider Emergency Medicine; PCP Emergency Medicine; Visit Provider Surgery
DX: K57.20 Diverticulitis of large intestine with perforation and abscess without bleeding (principal); E87.6 Hypokalemia; R03.0 Elevated blood-pressure reading, without diagnosis of hypertension; Z86.16 Personal history of COVID-19; Z20.822 Contact with and (suspected) exposure to COVID-19
CPT/HCPCS: 36415; 74018; 74019; 74177; 80048; 80053; 81001; 81003; 81025; 83690; 83735; 85025; 85027; 87040; 96361; 96365; 96366; 96367; 96374; 96375; 99285; A9270; C9803; G0378; G0379; J0131; J1956; J2405; J7030; Q9967; U0003; U0005

== ENCOUNTER 2021-05-23 11:55 | Emergency (ER) | payer OTHER, SELFPAY ==
[2021-05-23 12:00] VITALS: BP 149/87; PULSE 90; RESP 12; TEMP 36.3; O2SAT 100
--- NOTE | 2021-05-23 12:03 | ED.URI ---
HPI - URI/Sore Throat General Chief Complaint: Anxiety Stated Complaint: Shortness of breath Time Seen by Provider: 05/23/21 12:00 Source: patient and RN notes reviewed History of Present Illness HPI Narrative: Patient is a 36-year-old female who presents the urgent care with complaints of intermittent shortness of breath and elevated blood pressure. Patient states that she does have a history of anxiety and she is concerned about her palpitations . Patient states that her palpitations are not current and she is currently not suffering any chest pain or shortness of breath. Patient states that it comes and goes and has been for the last couple days . Patient has not followed up with her PCP or spoke with her deployment manager. Patient was recently seen at our facility as well as the emergency room and had a complete cardiac work-up. All testing was negative and she has not followed up with Dr. Benítez since her discharge. Patient was also placed on anxiety meds at at one point for her increased anxiety and panic attacks. Patient states that the medication made her feel bad and she did not wish to take anxiety medications. Since then patient has not done anything for anxiety and does suffer the symptoms of palpitations and shortness of breath. Patient is in no acute distress at this time. No other acute complaints. Denies of any sick symptoms. Patient aware of the plan of care. Some parts of this dictation were generated by voice recognition software and may contain typographical and/or grammatical inaccuracies. Related Data Home Medications Medication Instructions Recorded Confirmed Adult Multivitamin Gummies 1 tablet PO DAILY 03/18/21 04/17/21 Allergies Allergy/AdvReac Type Severity Reaction Status Date / Time No Known Allergies Allergy Verified 04/12/21 09:35 Review of Systems Review of Systems: CONSTITUTIONAL: Denies fever, chills, or sweats. EYES: Denies visual changes, redness, or discharge. ENT: Denies rhinorrhea, congestion, sore throat, or otalgia. CARDIOVASCULAR: Reports of chronic intermittent palpitations RESPIRATORY: Reports of intermittent shortness of breath GASTROINTESTINAL: Denies abdominal pain, nausea, vomiting, or diarrhea. GENITOURINARY: Denies dysuria or hematuria. SKIN: Denies rash or itching. MUSCULOSKELETAL: Denies back pain, joint pain, or myalgia. NEUROLOGIC: Denies headache, numbness, or weakness. All other systems reviewed are negative, except as documented in HPI. [facility] Past Medical History Medical History Anxiety History of COVID-19 Surgical History Surgical History No pertinent past surgical history Family History Family History Sibling Hypertension Mother Hypertension Social History Social History Social History: The patient lives in [place]. Originally from the [facility]. She works at [employer]. Lifelong nonsmoker. Drinks perhaps 1 alcoholic beverage a week. No illicit substance use. Surrogate decision maker: Newton Keene. Code status: Full code. Smoking status: Never smoker Alcohol intake: never Substance use: never Spiritual care concerns: No Comments At the time of my signature, I reviewed and agree with the nursing past medical, surgical, social, and family history. There is no relevant family history pertinent to the patient complaint. Exam Narrative: GENERAL: This is a well-nourished, well-developed patient, in no apparent distress. HEAD: normocephalic, atraumatic. EYES: PERRL. Sclera clear/white. Vision is grossly intact. EARS: External ears normal NOSE: External nose normal with no obvious nasal discharge, nares without redness, no rhinorrhea. THROAT: Mucous membranes moist NECK: Neck supple CARDIOVASCULAR: Regu
== END 2021-05-23 12:25 | disposition home or self-care (01) ==
PROVIDERS: Emergency Provider Nurse Practitioner Family; PCP Emergency Medicine
DX: F41.9 Anxiety disorder, unspecified (principal); Z86.16 Personal history of COVID-19
CPT/HCPCS: 99211; G0463

== ENCOUNTER 2021-05-25 08:44 | Outpatient (CLI) | payer OTHER, SELFPAY ==
[2021-05-25 18:41] LABS: Hematocrit 43.3 % (37.0-47.0); Hemoglobin 13.9 g/dL (12.0-15.0); Mean Corpuscular HGB Conc 32.1 g/dl (32-36); Mean Corpuscular Hemoglobin 31.7 pg (26-34); Mean Corpuscular Volume 98.6 fl (80-100); Mean Platelet Volume 10.1 fl (7.4-10.4); Platelet Count Result 350 k/mm3 (150-375); Red Blood Count 4.39 M/mm3 (4.2-5.4); Red Cell Distribution Width 13.5 % (11.5-14.5); White Blood Count 4.9 K/mm3 (4.5-10.0)
[2021-05-25 19:48] LABS: Alanine Aminotransferase 47 U/L (4-35); Albumin Level 4.8 g/dL (3.5-5.1); Alkaline Phosphatase 56 U/L (38-126); Anion Gap 9 mmol/L (8-16); Aspartate Amino Transferase 40 U/L (14-36); Blood Urea Nitrogen 18 mg/dL (7-17); Calcium 9.5 mg/dL (8.4-10.2); Carbon Dioxide 29 mmol/L (22-30); Chloride 101 mmol/L (98-107); Cholesterol 199 mg/dL (0-200); Estimated Glomerular Filt Rate > 60; Glucose 96 mg/dL (65-110); HDL Direct 61 mg/dL; Potassium 4.1 mmol/L (3.4-5.0); Sodium 139 mmol/L (137-145); Triglycerides 73 mg/dL (<150)
[2021-05-25 19:59] LABS: LDL Cholesterol Direct 102 mg/dL
== END 2021-05-25 08:45 | disposition home or self-care (01) ==
LOC: ANHBWCLAB 08:46
PROVIDERS: PCP Family Medicine; Visit Provider Family Medicine
DX: F41.9 Anxiety disorder, unspecified (principal); R00.2 Palpitations
CPT/HCPCS: 36415; 80053; 80061; 85027

== ENCOUNTER 2021-06-09 13:18 | Outpatient (CLI) | payer OTHER, SELFPAY ==
--- NOTE | 2021-06-15 12:44 | WPDHOLTEREM ---
Holter/Event Monitor Holter/Event Monitor Date of procedure: 06/09/21 Holter/Event Procedure: 48 Hr Holter Monitor Indications: Anxiety disorder Conclusion: 1. 48 hour holter monitor on 06/09/21. 2. Underlying rhythm is sinus rhythm. HR range 45-122 bpm; average HR 65 bpm. 3. There are 2 premature supraventricular complexes. No supraventricular tachycardia. 4. There is 1 premature ventricular complex. No ventricular tachycardia. 5. No sinoatrial or atrioventricular blocks. No significant pauses greater than 2 seconds. 6. Patient reports symptoms of palpitations which demonstrate sinus rhythm, HR range 94-97 bpm.
== END 2021-06-09 13:19 | disposition home or self-care (01) ==
LOC: ANHCARD 13:19
PROVIDERS: PCP Family Medicine; Visit Provider Family Medicine
DX: F41.9 Anxiety disorder, unspecified (principal); R00.2 Palpitations
CPT/HCPCS: 93225; 93226

== ENCOUNTER 2021-06-13 10:38 | Outpatient (CLI) | payer OTHER, SELFPAY ==
--- NOTE | ~2021-06-13 | US_ITS ---
EXAMINATION: US abdomen limited EXAM DATE: 06/13/2021 11:21 INDICATION: R74.8 - Abnormal levels of other serum enzymes . TECHNIQUE: Multiple grayscale and Doppler images of the abdomen right upper quadrant were obtained (bradley y a technologist who performed the scan) and subsequently reviewed. There is no prior study for hannah matta. FINDINGS: The pancreatic head and body are normal in appearance. The pancreatic tail is not visualized. The l iver has normal echogenicity and contour. There are no focal liver lesions identified. There is no evidence of intrahepatic biliary duct dilation. Portal venous flow was seen in the hepatopedal, nor mal direction and has normal Doppler waveform. No right-sided hydronephrosis. Common bile duct measures 3 mm, which is normal. The gallbladder wall is normal in thickness, with ex pected amount of distention. No sonographic evidence of pericholecystic fluid. There is no cholelit hiases. Technologist performing exam reports patient did not demonstrate sonographic Chong's sign. Please note that this sign is less reliable in patients who have received pain medication. IMPRESSION: 1. Unremarkable abdominal ultrasound exam. Reviewed, dictated and finalized at location A.
== END 2021-06-13 10:39 | disposition home or self-care (01) ==
LOC: ANHIMG 10:39
PROVIDERS: PCP Family Medicine; Visit Provider Family Medicine
DX: R74.8 Abnormal levels of other serum enzymes (principal)
CPT/HCPCS: 76705

== ENCOUNTER 2021-06-15 10:33 | Outpatient (CLI) | payer OTHER, SELFPAY ==
[2021-06-15 18:59] LABS: Alanine Aminotransferase 34 U/L (4-35); Albumin Level 4.8 g/dL (3.5-5.1); Alkaline Phosphatase 45 U/L (38-126); Aspartate Amino Transferase 33 U/L (14-36); Bilirubin,Total 0.7 mg/dL (0.2-1.3)
[2021-06-15 19:52] LABS: Hepatitis B Surface Antigen Negative (Negative)
[2021-06-15 19:58] LABS: HAV RESULT Negative (Negative); Hepatitis B Core IgM Result Negative (Negative)
[2021-06-15 20:09] LABS: Hepatitis C Virus Antibody Negative (Negative)
== END 2021-06-15 10:34 | disposition home or self-care (01) ==
PROVIDERS: PCP Family Medicine; Visit Provider Family Medicine
DX: R74.8 Abnormal levels of other serum enzymes (principal)
CPT/HCPCS: 36415; 80074; 80076

== ENCOUNTER 2021-12-25 12:33 | Outpatient (CLI) | payer OTHER, SELFPAY ==
[2021-12-25 18:57] LABS: Basophils Percent Auto 0.4 % (0.2-1.2); Eosinophils Absolute Auto 0.1 K/mm3 (0-0.3); Eosinophils Percent Auto 0.7 % (0-4.4); Hematocrit 39.3 % (37.0-47.0); Hemoglobin 13.1 g/dL (12.0-15.0); Immature Granulocyte Absolute 0.06 K/mm3 (0.00-0.031); Immature Granulocyte Percent A 0.6 % (0-0.5); Lymphocytes Absolute Auto 1.51 K/mm3 (0.9-3.2); Lymphocytes Percent Auto 14.7 % (18.3-44.2); Mean Corpuscular HGB Conc 33.3 g/dl (32-36); Mean Corpuscular Hemoglobin 31.4 pg (26-34); Mean Corpuscular Volume 94.2 fl (80-100); Mean Platelet Volume 10.1 fl (7.4-10.4); Monocytes Absolute Auto 0.8 K/mm3 (0.1-0.6); Monocytes Percent Auto 7.3 % (2.6-8.5); Neutrophils Absolute Auto 7.8 K/mm3 (1.3-6.7); Neutrophils Percent Auto 76.3 % (45.5-73.1); Platelet Count Result 313 k/mm3 (150-375); Red Blood Count 4.17 M/mm3 (4.2-5.4); Red Cell Distribution Width 13.1 % (11.5-14.5); White Blood Count 10.3 K/mm3 (4.5-10.0)
[2021-12-25 19:31] LABS: Hepatitis B Surface Antigen Negative (Negative); Rubella IgG Antibody > 110.0 IU/ML
[2021-12-25 19:48] LABS: HIV 1/2 Ab P24 Ag Result Negative (Negative)
[2021-12-26 16:29] LABS: Rapid Plasma Reagin Non-Reactive (NonReactive)
[2022-01-04 19:41] LABS: CF Result NEGATIVE (NEGATIVE); Ethnicity NG
[2022-01-05 16:11] LABS: SMA 2.0 RISK VARIANT NOT DETECTED
[2022-01-11 15:30] LABS: SMA Results Received Yes
== END 2021-12-25 12:34 | disposition home or self-care (01) ==
LOC: ANHGOSHLAB 12:45
PROVIDERS: PCP Family Medicine; Visit Provider Student in an Organized Health Care Education/Training Program
DX: N94.89 Other specified conditions associated with female genital organs and menstrual cycle (principal)
CPT/HCPCS: 36415; 81220; 81329; 85025; 86592; 86644; 86703; 86747; 86762; 86787; 86850; 86900; 86901; 87086; 87340; G0432

== ENCOUNTER 2022-02-28 09:21 | Outpatient (CLI) | payer OTHER, SELFPAY ==
[2022-02-28 18:25] LABS: Glucose 1 Hour PP 50gm Dose 142 mg/dL
[2022-02-28 19:17] LABS: HIV 1/2 Ab P24 Ag Result Negative (Negative)
[2022-02-28 19:45] LABS: Basophils Percent Auto 0.4 % (0.2-1.2); Eosinophils Absolute Auto 0.1 K/mm3 (0-0.3); Hematocrit 32.7 % (37.0-47.0); Hemoglobin 10.8 g/dL (12.0-15.0); Immature Granulocyte Absolute 0.06 K/mm3 (0.00-0.031); Immature Granulocyte Percent A 0.8 % (0-0.5); Lymphocytes Absolute Auto 1.05 K/mm3 (0.9-3.2); Lymphocytes Percent Auto 13.3 % (18.3-44.2); Mean Corpuscular Hemoglobin 32.6 pg (26-34); Mean Corpuscular Volume 98.8 fl (80-100); Mean Platelet Volume 9.8 fl (7.4-10.4); Monocytes Absolute Auto 0.6 K/mm3 (0.1-0.6); Neutrophils Absolute Auto 6.1 K/mm3 (1.3-6.7); Neutrophils Percent Auto 77.5 % (45.5-73.1); Platelet Count Result 290 k/mm3 (150-375); Red Blood Count 3.31 M/mm3 (4.2-5.4); Red Cell Distribution Width 14.4 % (11.5-14.5); White Blood Count 7.9 K/mm3 (4.5-10.0)
== END 2022-02-28 09:22 | disposition home or self-care (01) ==
LOC: ANHGOSHLAB 09:24
PROVIDERS: PCP Family Medicine; Visit Provider Student in an Organized Health Care Education/Training Program
DX: Z34.90 Encounter for supervision of normal pregnancy, unspecified, unspecified trimester (principal); Z3A.00 Weeks of gestation of pregnancy not specified
CPT/HCPCS: 36415; 82947; 85025; 86703; G0432

== ENCOUNTER 2022-03-02 08:21 | Outpatient (CLI) | payer OTHER, SELFPAY ==
[2022-03-02 08:43] LABS: Glucose Point of Care 83 mg/dl (65-105)
[2022-03-02 20:11] LABS: Glucose 3 Hour 117 mg/dL
[2022-03-02 20:13] LABS: Glucose 1 Hour 151 mg/dL
[2022-03-02 20:14] LABS: Glucose 2 Hour 153 mg/dL
== END 2022-03-02 08:22 | disposition home or self-care (01) ==
LOC: ANHGOSHLAB 08:25
PROVIDERS: PCP Family Medicine; Visit Provider Student in an Organized Health Care Education/Training Program
DX: Z34.90 Encounter for supervision of normal pregnancy, unspecified, unspecified trimester (principal); Z3A.00 Weeks of gestation of pregnancy not specified
CPT/HCPCS: 36415; 82948; 82951; 82952

== ENCOUNTER 2022-03-20 10:35 | Outpatient (CLI) | payer OTHER, SELFPAY ==
[2022-03-20 10:56] VITALS: BP 155/90; PULSE 80
[2022-03-20 11:00] VITALS: BP 155/90; PULSE 96
[2022-03-20 11:08] VITALS: BMI 23.5
[2022-03-20 11:12] LABS: Basophils Percent Auto 0.2 % (0.2-1.2); Eosinophils Absolute Auto 0.1 K/mm3 (0-0.3); Eosinophils Percent Auto 0.8 % (0-4.4); Hematocrit 35.6 % (37.0-47.0); Hemoglobin 11.9 g/dL (12.0-15.0); Immature Granulocyte Absolute 0.04 K/mm3 (0.00-0.031); Immature Granulocyte Percent A 0.6 % (0-0.5); Lymphocytes Absolute Auto 0.92 K/mm3 (0.9-3.2); Lymphocytes Percent Auto 14.5 % (18.3-44.2); Mean Corpuscular HGB Conc 33.4 g/dl (32-36); Mean Corpuscular Volume 98.6 fl (80-100); Mean Platelet Volume 9.3 fl (7.4-10.4); Monocytes Absolute Auto 0.5 K/mm3 (0.1-0.6); Monocytes Percent Auto 8.5 % (2.6-8.5); Neutrophils Absolute Auto 4.8 K/mm3 (1.3-6.7); Neutrophils Percent Auto 75.4 % (45.5-73.1); Platelet Count Result 255 k/mm3 (150-375); Red Blood Count 3.61 M/mm3 (4.2-5.4); Red Cell Distribution Width 14.3 % (11.5-14.5); White Blood Count 6.3 K/mm3 (4.5-10.0)
[2022-03-20 11:13] LABS: Appearance Urine Clear (Clear); Bilirubin Urine Negative (Negative); Blood Urine Negative (Negative); Color Urine Light Yellow (Yellow); Glucose Urine UA Negative (Negative); Ketones Urine Negative (Negative); Leukocyte Esterase Ur Negative LEU/UL (NEGATIVE); Nitrate Urine Negative (Negative); Protein Urine Negative (Negative); Urobilinogen Urine 0.2 mg/dL (<2.0)
[2022-03-20 11:15] VITALS: BP 148/86; PULSE 77
[2022-03-20 11:19] LABS: Creatinine Urine 20.1 mg/dL; Total Protein Urine Random 13 mg/dL; Ur Ttl Prot Creatinine Ratio 0.65 mg/mg (0-0.20)
[2022-03-20 11:27] LABS: Alanine Aminotransferase 15 U/L (6-35); Alkaline Phosphatase 113 U/L (38-126); Anion Gap 6 mmol/L (8-16); Aspartate Amino Transferase 22 U/L (14-36); Bilirubin,Total 0.4 mg/dL (0.2-1.3); Blood Urea Nitrogen 6 mg/dL (7-17); Calcium 8.6 mg/dL (8.4-10.2); Carbon Dioxide 25 mmol/L (22-30); Chloride 99 mmol/L (98-107); Estimated CRCL calculation 119 ml/min; Estimated Glomerular Filt Rate > 60; Glucose 78 mg/dL (65-110); Potassium 3.3 mmol/L (3.4-5.0); Sodium 130 mmol/L (137-145); Uric Acid 3.9 mg/dL (2.5-7.5)
[2022-03-20 11:30] VITALS: BP 137/81; PULSE 76
[2022-03-20 11:54] VITALS: BP 137/81; PULSE 77
--- NOTE | 2022-03-20 11:58 | PC.NURSE ---
Spoke with Dr. Davila via telephone regarding patient status, tracing, and lab results. Verbal orders placed for discharge with a 24 hour urine. Discussed plan of care with patient. Patient has no questions at this time and was given a handout with instructions. Patient was instructed to follow up with Dr. Davila's office in one week. Patient was given nurse's station phone number to call if she has any questions.
[2022-03-20 13:08] LABS: Add Urine Microscopic? NO
== END 2022-03-20 11:55 | disposition home or self-care (01) ==
LOC: ANHOBOP 10:41 → ANHOBPP 10:44
PROVIDERS: PCP Family Medicine; Visit Provider Student in an Organized Health Care Education/Training Program
DX: O13.9 Gestational [pregnancy-induced] hypertension without significant proteinuria, unspecified trimester (principal)
CPT/HCPCS: 36415; 59025; 80053; 81003; 82570; 84156; 84550; 85025; 87086; 99199

== ENCOUNTER 2022-03-21 15:06 | Outpatient (CLI) | payer OTHER, SELFPAY ==
[2022-03-21 15:06] VITALS: BMI 23.2
[2022-03-21 16:48] LABS: Collection Time Urine 24 HOURS
[2022-03-21 16:50] LABS: Total Volume 24 Hour Urine 2300 ml
[2022-03-21 17:00] LABS: Total Protein Urine 24 Hr 276 mg/24hr (28-141); Total Protein Urine Random 12 mg/dL
[2022-03-21 17:15] LABS: Patient Weight 144 Lbs; Total Volume 24 Hour Urine 2300 ml
[2022-03-21 17:23] LABS: Creatinine Clearance Urine 181.1 ml/min (75-125); Creatinine Urine 56.8 mg/dL
== END 2022-03-21 15:07 | disposition home or self-care (01) ==
LOC: ANHOBOP 15:25
PROVIDERS: PCP Family Medicine; Visit Provider Student in an Organized Health Care Education/Training Program
DX: Z34.90 Encounter for supervision of normal pregnancy, unspecified, unspecified trimester (principal); Z3A.00 Weeks of gestation of pregnancy not specified
CPT/HCPCS: 81050; 82575; 84156

== ENCOUNTER 2022-05-18 01:01 | Inpatient (IN) | payer OTHER, SELFPAY ==
[2022-05-18] VITALS (233 sets, daily range): BP systolic 102–178; BP diastolic 65–112; PULSE 72–127; RESP 14–16; TEMP 36.8–37.3; O2SAT 88–100; BMI 24.9
--- NOTE | 2022-05-18 01:55 | LDADM ---
This patient, Elisabeth Johnson, was admitted to Labor/Delivery/Recovery 107 on 05/18/22 at 01:01. Plans for labor, pain management and were discussed with patient. Patient/family oriented to hospital policies and general routines including ID bracelet, bed and alarms, visiting hours, pain management, procedures, bathroom and other care routines, personal items, smoking policy, room service/diet and guest tray routines, infant security routines, and visiting hours. Patient/Family are encouraged to report perceived risks to care and to ask questions if they do not understand what they are told or what they should do. See OBIX for further documentation.
[2022-05-18 02:53] LABS: Basophils Percent Auto 0.5 % (0.2-1.2); Eosinophils Percent Auto 0.6 % (0-4.4); Hematocrit 41.9 % (37.0-47.0); Hemoglobin 14.4 g/dL (12.0-15.0); Immature Granulocyte Absolute 0.02 K/mm3 (0.00-0.031); Immature Granulocyte Percent A 0.3 % (0-0.5); Lymphocytes Absolute Auto 0.91 K/mm3 (0.9-3.2); Lymphocytes Percent Auto 14.5 % (18.3-44.2); Mean Corpuscular HGB Conc 34.4 g/dl (32-36); Mean Corpuscular Hemoglobin 33.1 pg (26-34); Mean Corpuscular Volume 96.3 fl (80-100); Mean Platelet Volume 10.4 fl (7.4-10.4); Monocytes Absolute Auto 0.6 K/mm3 (0.1-0.6); Monocytes Percent Auto 10.1 % (2.6-8.5); Neutrophils Absolute Auto 4.6 K/mm3 (1.3-6.7); Nucleated Red Blood Cells Perc 0.3 % (0.0-0.2); Platelet Count Result 209 k/mm3 (150-375); Red Blood Count 4.35 M/mm3 (4.2-5.4); Red Cell Distribution Width 13.2 % (11.5-14.5); White Blood Count 6.3 K/mm3 (4.5-10.0)
[2022-05-18] MEDS: LABETALOL HCL INJ 100 MG/20 ML VIAL 20 MG IV PUSH (04:23)
[2022-05-18] MEDS: LACTATED RINGERS 1,000 ML 125 ML IV CONT ×2 (04:33→09:37)
[2022-05-18] MEDS: MAGNESIUM SULF 4 GM/WATER100ML 4 GM/100 ML BAG IVPB (04:34)
[2022-05-18] MEDS: OXYTOCIN 30 UNITS/NS 500 ML 30 UNITS/500 ML BAG IV CONT (04:50)
[2022-05-18] MEDS: MAGNESIUM SULF 20GM/WATER500ML 500 ML 50 MG IV CONT ×2 (05:07→14:09)
[2022-05-18 05:39] LABS: Alanine Aminotransferase 25 U/L (6-35); Albumin Level 3.5 g/dL (3.5-5.1); Alkaline Phosphatase 205 U/L (38-126); Anion Gap 8 mmol/L (8-16); Aspartate Amino Transferase 31 U/L (14-36); Bilirubin,Total 0.5 mg/dL (0.2-1.3); Blood Urea Nitrogen 12 mg/dL (7-17); Calcium 8.6 mg/dL (8.4-10.2); Carbon Dioxide 20 mmol/L (22-30); Chloride 107 mmol/L (98-107); Estimated CRCL calculation 101 ml/min; Estimated Glomerular Filt Rate > 60; Glucose 101 mg/dL (65-110); Sodium 135 mmol/L (137-145); Uric Acid 6.1 mg/dL (2.5-7.5)
[2022-05-18 05:46] LABS: Total Protein Urine Random 158 mg/dL
[2022-05-18 05:47] LABS: Appearance Urine Turbid (Clear); Bacteria Urine None Seen /hpf; Bilirubin Urine Negative (Negative); Blood Urine 3+ (Negative); Color Urine Orange (Yellow); Glucose Urine UA Negative (Negative); Ketones Urine Negative (Negative); Leukocyte Esterase Ur Trace LEU/UL (NEGATIVE); Need Manual Microscopic Reviewed; Nitrate Urine Negative (Negative); Protein Urine 2+ mg/dL (Negative); RBC Urine >100 /hpf (0-2); Specific Grav Ur 1.007 (1.001-1.035); Squamous Epithelial Cell Urine Moderate /hpf (Few); Urobilinogen Urine 0.2 mg/dL (<2.0); WBC Urine 0-5 /hpf (0-3)
[2022-05-18 05:49] LABS: Creatinine Urine 25.3 mg/dL; Ur Ttl Prot Creatinine Ratio 6.25 mg/mg (0-0.20)
[2022-05-18 06:28] LABS: Add Urine Microscopic? YES
--- NOTE | 2022-05-18 08:20 | WPDANESEPP ---
Anes - Eval Pre Procedure Procedure: labor pain management Date/Time: 05/18/22 08:20 Surgeon: Giovanni Preop Diagnosis: pain during labor Pre Op Diagnosis: Leaking Patient Data Age: 37 Gender: F Height: 1.68 m Weight: 70 kg Last Vital Signs Temp 99 F 05/18/22 04:53 Pulse 100 05/18/22 08:16 Resp 14 05/18/22 04:43 BP 146/102 H 05/18/22 08:16 Pulse Ox 99 05/18/22 08:19 O2 Del Method Room Air 05/18/22 01:54 Allergies Allergy/AdvReac Type Severity Reaction Status Date / Time No Known Allergies Allergy Verified 05/15/22 10:27 Home Medications Medication Instructions Recorded Confirmed Type multivitamin with minerals-folic 1 tablet PO DAILY #30 tabs 02/20/22 05/18/22 Rx acid 200 mcg chewable tablet (Adult Multivitamin Gummies) prenat.vits,tai,kdq-ochn-etmlz 1 tablet PO DAILY #30 tabs 03/27/22 05/18/22 Rx Laboratory Tests 05/18/22 05/18/22 05/18/22 02:20 02:20 02:20 WBC 6.3 K/mm3 K/mm3 (4.5-10.0) RBC 4.35 M/mm3 M/mm3 (4.2-5.4) Hgb 14.4 g/dL g/dL (12.0-15.0) Hct 41.9 % % (37.0-47.0) MCV 96.3 fl fl (80-100) MCH 33.1 pg pg (26-34) MCHC 34.4 g/dl g/dl (32-36) RDW 13.2 % % (11.5-14.5) Plt Count 209 k/mm3 k/mm3 (150-375) MPV 10.4 fl fl (7.4-10.4) Immature Gran % (Auto) 0.3 % % (0-0.5) Neut % (Auto) 74.0 % H % (45.5-73.1) Lymph % (Auto) 14.5 % L % (18.3-44.2) [place] % (Auto) 10.1 % H % (2.6-8.5) Eos % (Auto) 0.6 % % (0-4.4) Baso % (Auto) 0.5 % % (0.2-1.2) Lymph # (Auto) 0.91 K/mm3 K/mm3 (0.9-3.2) [place] # (Auto) 0.6 K/mm3 K/mm3 (0.1-0.6) Eos # (Auto) 0.0 K/mm3 K/mm3 (0-0.3) Baso # (Auto) 0.0 K/mm3 K/mm3 (0.0-0.1) Abs Immat Gran (auto) 0.02 K/mm3 K/mm3 (0.00-0.031) Absolute Neuts (auto) 4.6 K/mm3 K/mm3 (1.3-6.7) Absolute Nucleated RBC 0.0 K/mm3 K/mm3 (0.0-0.012) Nucleated RBC % 0.3 % H % (0.0-0.2) Sodium Potassium Chloride Carbon Dioxide Anion Gap BUN Creatinine Estim Creat Clear Calc Estimated GFR Glucose Uric Acid Calcium Total Bilirubin AST ALT Alkaline Phosphatase Total Protein Albumin Urine Color Urine Appearance Urine pH Ur Specific [place] Urine Protein Urine Glucose (UA) Urine Ketones Ur Blood (Man) Urine Nitrate Urine Bilirubin Urine Urobilinogen Ur Leukocyte Esterase Add Ur Microanalysis Urine RBC Urine WBC Ur Squamous Epith Cells Urine Bacteria Urine Casts U Random Total Protein Urine Creatinine Protein/Creat Ratio 2 RPR Pending Blood Type A Positive Antibody Screen Negative 05/18/22 05/18/22 05/18/22 04:44 04:44 04:44 WBC RBC Hgb Hct MCV MCH MCHC RDW Plt Count MPV Immature Gran % (Auto) Neut % (Auto) Lymph % (Auto) [place] % (Auto) Eos % (Auto) Baso % (Auto) Lymph # (Auto) [place] # (Auto) Eos # (Auto) Baso # (Auto) Abs Immat Gran (auto) Absolute Neuts (auto) Absolute Nucleated RBC Nucleated RBC % Sodium 135 mmol/L L mmol/L (137-145) Potassium 4.0 mmol/L mmol/L (3.4
[2022-05-18 12:09] LABS: Rapid Plasma Reagin Non-Reactive (NonReactive)
[2022-05-18] MEDS: miSOPROStol 200 MCG TABLET 800 MCG RECTAL (15:30)
--- NOTE | 2022-05-18 15:35 | P.PCNOB_ITS ---
OB - Delivery Note Procedure Events: Preeclampsia w/o severe features Induction method: None Delivery augmentation: Pitocin Delivery monitor: External FHT and Internal Uterine Route of delivery: Episiotomy description: None Laceration Description: Perineal - 3rd Degree Delivery repair: vicryl and chromic Specimen: Yes Quantitative Blood Loss (ml): 700 Anesthesia type: Epidural Disposition: Floor Complications: hemorrhage resolved with manual compression and Pitocin and rectal Cytotec Narrative: patient prepped in usual manner for this procedure. Maternal expulsive efforts readily delivered vertex over intact perineum. Rest baby delivered without difficulty. Cord clamped cut the placenta delivered spontaneously. Initially uterus was well contracted and in attention was placed to the vagina where a third-degree laceration was noted. The uterus relaxed and increased bleeding with manual compression and continued Pitocin helping to keep uterus contracted. At this point the rectal sphincter and muscle were approximated using interrupted 0 Vicryl sutures to approximate the capsule and sphincter muscle. Again the uterus relaxed with further manual compression resolving and uterus abhay well, Cytotec was given at this time. [place] of the vaginal laceration were noted and using 0 chromic suture vaginal mucosa was approximated running interlocking manner. Deep tissue approximated subcuticular to approximate the perineal tissue. Good approximation was noted and the uterus was well contracted at this point the procedure was considered terminated. [place] Baby Date of : 05/18/22 Weeks of gestation at delivery: 39 Infant gender: Female Weight (pounds): 6 Weight (ounces): 13 presentation: vertex Placenta delivery description: Spontaneous Cord Vessel Description: 3 Vessels score one minute: 9 score five minutes: 9 AMG Delivery Billing Delivery Delivery: Delivery Charge
--- NOTE | 2022-05-18 15:35 | WPDHPUPDATE1 ---
History and Physical Update Update Date/Time: 05/18/22 15:35 History and Physical has been reviewed, including an updated exam of the patient. There are NO changes in the patient's condition. Risks, benefits, and alternatives have been discussed and questions answered. Patient agrees to proceed with procedure.
--- NOTE | 2022-05-18 15:35 | WPDOBADMIT ---
Obstetrics - Admit Note Admission Note: record reviewed. No pertinent additions to the history and/or any subsequent changes in the physical findings that are not consistent with the expected course of the were found. Additions to the history and/or subsequent changes in the physical findings follow. None.
[2022-05-18] MEDS: OXYTOCIN 30 UNITS/NS 500 ML 30 UNITS/500 ML BAG 125 UNITS IV CONT (15:36)
[2022-05-18] MEDS: ONDANSETRON INJ 4 MG/2 ML VIAL IV PUSH (15:55)
--- NOTE | 2022-05-18 17:53 | OBPPTRN ---
Patient transferred to post room #284 via ( wheelchair ). Support person present. Oriented to unit, room, information board, rooming in, admission packet and security measures. Patient verbalizes understanding.
[2022-05-18] MEDS: IBUPROFEN 600 MG TABLET PO (20:02)
[2022-05-18] MEDS: DOCUSATE SODIUM 100 MG CAPSULE PO (20:03)
[2022-05-18] MEDS: LABETALOL HCL 100 MG TABLET PO (20:03)
[2022-05-19] VITALS (10 sets, daily range): BP systolic 145–161; BP diastolic 86–103; PULSE 71–98; RESP 16–18; TEMP 36.6–37.1; O2SAT 97–98
[2022-05-19 05:07] LABS: Hematocrit 28.8 % (37.0-47.0)
[2022-05-19] MEDS: LABETALOL HCL 100 MG TABLET PO ×2 (08:49→12:31)
[2022-05-19] MEDS: DOCUSATE SODIUM 100 MG CAPSULE PO ×2 (08:49→16:47)
[2022-05-19] MEDS: MULTIVIT/MIN/PREN/FOL AC/IRON TABLET 1 TAB PO (08:49)
[2022-05-19] MEDS: LACTATED RINGERS 1,000 ML 75 ML IV CONT (09:02)
[2022-05-19] MEDS: MAGNESIUM SULF 20GM/WATER500ML 500 ML 50 MG IV CONT (10:34)
--- NOTE | 2022-05-19 11:00 | PC.NURSE ---
Dr. Parada at bedside. RN Tamar Hull at bedside as well. Nurse Tamar Hull gave updates on pt's vitals through the night that were given upon shift change report and vitals taken today, 05/19/22 @0840 of 161/99. Dr. Parada changed orders to an additional 100mg Labetalol, then 200mg Labetalol Q8. Per Dr. Parada, the 200mg Labetalol is t be given 8 hours after the 9AM dose at 1700.
--- NOTE | 2022-05-19 11:44 | WPDANLDPN2 ---
Anes-Prog Note L&D Date/Time: 05/19/22 11:44 Comfortable throughout: labor and delivery Neuraxial method: epidural Epidural/Spinal procedure site: clean & non-tender Neuro status: Neuro function grossly intact. Cardiovascular status: normal Respiratory status: normal Airway patency: baseline Mental status: baseline Post-Op hydration status: normal Vital Signs: Last Vital Signs Temp 98.4 F 05/19/22 04:30 Pulse 71 05/19/22 08:49 Resp 16 05/19/22 04:30 BP 160/103 H 05/19/22 04:30 Pulse Ox 98 05/19/22 04:30 O2 Del Method Room Air 05/18/22 01:54 Pain score (VAS): 0 I/O: Intake & Output 05/18/22 05/19/22 05/19/22 23:59 07:59 15:59 Intake Total 1450 Output Total 1197 650 Balance 253 -650 Post-procedural complaints: none Patient feedback: Patient satisfied with anesthetic care.
--- NOTE | 2022-05-19 12:18 | PM.OBPNVD ---
OB - PN: Subj Subjective Date/time seen: 05/19/22 12:18 Interval history: She denies headache, scotomata or RUQ pain. She having the blurred vision from the Magnesium. She has adequate pain control. Denies lightheadedness or dizziness. Adequate urine output. Patient comments: pain well controlled, tolerating diet and other (Decreasing lochia.) OB - PN: Obj Data Labs 05/19/22 04:45 05/18/22 04:44 Labs: Laboratory Results - last 24 hr 05/19/22 04:45 Hgb 10.0 L D Hct 28.8 L OB - PN A/P Assessment and Plan (1) Vaginal delivery: Code(s): O80 - Encounter for full-term uncomplicated delivery Status: Acute Assessment and Plan: Continue routine care. (2) Pre-eclampsia affecting childbirth: Code(s): O14.94 - Unspecified pre-eclampsia, complicating childbirth Status: Acute Assessment and Plan: Blood pressure elevated, will increase Labetolol to 200mg q 8, continue Magnesium, will reassess at 24. Plan day: 1 Plan: routine care Comments: Patient doing well. Time Spent With Patient Time: Total time spent is greater than 50% in coordination of care (as documented) at patient's floor/unit and/or counseling patient: Exam Const: General: no acute distress Resp: Effort & Inspection: normal respiratory effort GI: Inspection: normal to inspection Other: fundus at umb firm nontender Extrem: General: normal to inspection, no calf tenderness bilaterally and other (mild bilat LE edema,DTR 3+ neg clonus bilat) Psych: Affect: normal affect Other: Abd: fundus firm below umbilicus, nontender Perineum: healing Ext: nontender
--- NOTE | 2022-05-19 14:54 | PC.NURSE ---
Called Dr. Parada with update on pts blood pressures since administration of additional Labetalol at 1200. Pressures given to Dr. Woodall were 150/101 @1230, 158/97@1330 and 145/86@1450. Dr. Parada ordered to D/C Mag Sulfate at 24 hours post delivery as orignally prescribed and continue with Labetalol 200mg Q8 ordered this morning during her examination.
[2022-05-19] MEDS: LABETALOL HCL 100 MG TABLET 200 MG PO (16:48)
[2022-05-20] VITALS (13 sets, daily range): BP systolic 147–170; BP diastolic 82–93; PULSE 65–88; RESP 16–18; TEMP 36.6–37.2; O2SAT 98–100
[2022-05-20] MEDS: LABETALOL HCL 100 MG TABLET 200 MG PO ×4 (00:59→23:11)
[2022-05-20] MEDS: DOCUSATE SODIUM 100 MG CAPSULE PO (08:48)
[2022-05-20] MEDS: MULTIVIT/MIN/PREN/FOL AC/IRON TABLET 1 TAB PO (08:48)
--- NOTE | 2022-05-20 11:41 | PM.OBPNVD ---
OB - PN: Subj Subjective Date/time seen: 05/20/22 11:41 Interval history: She denies headache, scotomata or RUQ pain. Lochia decreasing, no leg pain, adequate pain control. OB - PN: Obj Data Labs 05/19/22 04:45 05/18/22 04:44 OB - PN A/P Assessment and Plan (1) Vaginal delivery: Code(s): O80 - Encounter for full-term uncomplicated delivery Status: Acute Assessment and Plan: Blood pressures improved from yesterday but still increased. No pre- e symptoms. Will add Procardia. Answered her appropriate questions and concerns about her blood pressure. (2) Pre-eclampsia affecting childbirth: Code(s): O14.94 - Unspecified pre-eclampsia, complicating childbirth Status: Acute Time Spent With Patient Time: Total time spent is greater than 50% in coordination of care (as documented) at patient's floor/unit and/or counseling patient: Exam Const: General: comfortable and no acute distress Resp: Effort & Inspection: normal respiratory effort Auscultation: clear to auscultation bilaterally Cardio: Rate: regular rate Neuro: Sensory Exam: other (dtr 2+ no clonus) Psych: Mental Status: mental status grossly normal Affect: normal affect
[2022-05-20] MEDS: NIFEdipine 30 MG TAB.ER.24 PO (12:00)
[2022-05-20] MEDS: IBUPROFEN 600 MG TABLET PO (12:09)
--- NOTE | 2022-05-20 13:08 | PC.NURSE ---
1200-Pt stated that she does not want to breastfeed at this time; nipples are sore; RN stressed the need for patient to pump if she is not going to latch baby so that she has good milk production; FOB stated that they were buying a pump and she would pump if baby is not latching. Both parents verbalized understanding.
--- NOTE | 2022-05-20 20:44 | PC.NURSE ---
05/20/2022 at 1930 Patient viewed the discharge video Mother & Baby Care, The First Two Weeks . Patient was given the opportunity and encouraged to ask questions. Patient verbalized understanding of information shared and has been given the mother/baby guide for home reference.
[2022-05-20] MEDS: ZOLPIDEM TARTRATE (*CRX) 5 MG TABLET PO (23:10)
[2022-05-21] VITALS (12 sets, daily range): BP systolic 123–169; BP diastolic 83–100; PULSE 72–97; RESP 16; TEMP 36.7–37.5; O2SAT 97–100
[2022-05-21] MEDS: LABETALOL HCL 100 MG TABLET 200 MG PO (07:13)
[2022-05-21] MEDS: DOCUSATE SODIUM 100 MG CAPSULE PO (08:15)
[2022-05-21] MEDS: IBUPROFEN 600 MG TABLET PO (08:15)
[2022-05-21] MEDS: MULTIVIT/MIN/PREN/FOL AC/IRON TABLET 1 TAB PO (08:15)
[2022-05-21] MEDS: NIFEdipine 30 MG TAB.ER.24 PO ×2 (09:21→17:19)
--- NOTE | 2022-05-21 11:26 | PC.NURSE ---
0800 - Primary RN reported that mother is bottle feeding.
[2022-05-21 12:53] LABS: Alanine Aminotransferase 46 U/L (6-35); Albumin Level 3.1 g/dL (3.5-5.1); Alkaline Phosphatase 115 U/L (38-126); Anion Gap 5 mmol/L (8-16); Aspartate Amino Transferase 38 U/L (14-36); Bilirubin,Total 0.5 mg/dL (0.2-1.3); Blood Urea Nitrogen 14 mg/dL (7-17); Carbon Dioxide 27 mmol/L (22-30); Chloride 99 mmol/L (98-107); Estimated CRCL calculation 78 ml/min; Estimated Glomerular Filt Rate > 60; Glucose 102 mg/dL (65-110); Potassium 4.6 mmol/L (3.4-5.0); Sodium 131 mmol/L (137-145)
[2022-05-21] MEDS: LABETALOL HCL 100 MG TABLET 300 MG PO ×2 (13:31→19:21)
--- NOTE | 2022-05-21 13:34 | P.PNOB_ITS ---
OB - PN: Subj Subjective Date/time seen: 05/21/22 13:34 Interval history: She denies headache, scotomata or RUQ pain. Lochia decreasing, no leg pain, adequate pain control. Pt does complain of some ringing in her ear. Overall doing well Patient comments: no complaints [place] baby status: doing well feeding status: exclusively bottle feeding OB - PN: Obj Data Labs 05/19/22 04:45 05/21/22 12:27 Labs: Laboratory Results - last 24 hr 05/21/22 12:27 Sodium 131 L Potassium 4.6 Chloride 99 Carbon Dioxide 27 Anion Gap 5 L BUN 14 Creatinine 0.80 Estim Creat Clear Calc 78 Estimated GFR > 60 Glucose 102 Calcium 8.0 L Total Bilirubin 0.5 AST 38 H ALT 46 H Alkaline Phosphatase 115 Total Protein 6.0 L Albumin 3.1 L OB - PN A/P Assessment and Plan (1) Pre-eclampsia affecting childbirth: Code(s): O14.94 - Unspecified pre-eclampsia, complicating childbirth Status: Acute Assessment and Plan: Patient is day 3 from vaginal delivery Delivery complicated by preeclampsia Status post magnesium sulfate Patient currently on labetalol 200 q.8 hours and Procardia 30 XL daily Blood pressure still elevated to severe range Patient diuresing well, down 20 lb since admission Preeclampsia labs stable Will increase labetalol dosing to 300 t.i.d. Will increase Procardia to b.i.d. Patient does report a history of chronic hypertension prior to that she did not reveal previously Patient states she was on metoprolol and another medication for elevated blood pressures. Will continue to monitor blood pressures Plan day: 1 Plan: routine care Comments: patient doing well H/H stable continue routine care Time Spent With Patient Time: Total time spent is greater than 50% in coordination of care (as documented) at patient's floor/unit and/or counseling patient: Time with patient: less than 15 minutes Review of Systems Review of Systems: All systems reviewed & are unremarkable except as noted in HPI and below Exam Const: General: comfortable and no acute distress Resp: Effort & Inspection: normal respiratory effort Cardio: Rate: regular rate GI: GI Palp: Yes Soft to palpation and No Tenderness to palpation present (GI) Auscultation: normal bowel sounds Other: fundus firm and below umbilicus. Psych: Affect: normal affect
[2022-05-21] MEDS: ZOLPIDEM TARTRATE (*CRX) 5 MG TABLET PO (22:43)
[2022-05-22 02:59] VITALS: BP 134/85; PULSE 91; RESP 16; TEMP 36.8; O2SAT 100
[2022-05-22 06:55] VITALS: PULSE 86
[2022-05-22] MEDS: LABETALOL HCL 100 MG TABLET 300 MG PO (06:55)
[2022-05-22] MEDS: IBUPROFEN 600 MG TABLET PO (06:57)
[2022-05-22 07:40] VITALS: BP 135/90; PULSE 72; RESP 16; TEMP 36.8; O2SAT 100
[2022-05-22] MEDS: NIFEdipine 30 MG TAB.ER.24 PO (08:02)
[2022-05-22] MEDS: DOCUSATE SODIUM 100 MG CAPSULE PO (08:02)
[2022-05-22] MEDS: MULTIVIT/MIN/PREN/FOL AC/IRON TABLET 1 TAB PO (08:03)
[2022-05-22] MEDS: WITCH HAZEL 40 PADS 1 PAD TOPICAL (08:03)
--- NOTE | 2022-05-22 10:12 | PM.OBDSVD ---
DS: Admitting Diagnosis Discharge Date 05/22/22 Admitting Diagnosis intrauterine at term preeclampsia DS: Discharge Diagnosis Discharge Diagnosis (1) : Code(s): Z34.90 - Encounter for supervision of normal , unspecified, unspecified trimester Status: Acute (2) Pre-eclampsia affecting childbirth: Code(s): O14.94 - Unspecified pre-eclampsia, complicating childbirth Status: Acute OB - DS: Summary OB Procedures : None OB Procedures Intrapartum: Spontaneous Vag Delivery OB Procedures: : Other ( preeclampsia) Peripartum Data Delivery Method: Natural Vaginal Laceration Description: None Status at Discharge Functional status at discharge: independent ambulation Overall status at discharge: patient is back to baseline Time Spent with Patient Time attestation: Total time spent providing and/or coordinating discharge services: Time spent: Less than 30 minutes Exam Const: General: comfortable and no acute distress Resp: Effort & Inspection: normal respiratory effort Auscultation: clear to auscultation bilaterally Cardio: Rate: regular rate GI: GI Palp: Yes Soft to palpation Auscultation: normal bowel sounds Other: Fundus firm below umbilicus Psych: Appearance: grossly normal Mental Status: mental status grossly normal Affect: normal affect DS: Data Data Completed and Pending Pending studies at discharge: Pending at discharge 05/18/22 16:20 Surgical [PTH] Routine Labs on day of discharge: Labs from last 24 hours 05/21/22 12:27 Sodium 131 L Potassium 4.6 Chloride 99 Carbon Dioxide 27 Anion Gap 5 L BUN 14 Creatinine 0.80 Estim Creat Clear Calc 78 Estimated GFR > 60 Glucose 102 Calcium 8.0 L Total Bilirubin 0.5 AST 38 H ALT 46 H Alkaline Phosphatase 115 Total Protein 6.0 L Albumin 3.1 L Discharge Plan Discharge Discharging Clinician: Bryan Davila Patient Disposition: Home, Self-Care Activity: as tolerated and pelvic rest Diet: regular Patient Instructions: Antibiotic Form, Caring for Your Baby (DC), Preeclampsia and Eclampsia After Delivery (GEN), Vaginal Delivery (DC) Stand Alone Forms: General Discharge Information Follow-up/Referrals: Bryan Davila MD [Physician] - 1 Week Discharge Medications: No Action Adult Multivitamin Gummies 200 mcg tablet,chewable 1 tablet PO DAILY Qty: 30 2RF prenat.vits,tai,tph-acrn-chfel Tablet 1 tablet PO DAILY Qty: 30 6RF Date of admission: 05/18/22 01:01 Primary Care Provider: Celso Horn Admitting Provider: Bryan Davila Attending physician on admission: Bryan Davila Condition: Stable
[2022-05-22] MEDS: TETANUS,DIPHTHERIA,AC PERTUSSIS ADULT (0.5 ML) BOOSTRIX IM (12:51)
[2022-05-23 15:07] VITALS: BP 160/90; PULSE 68; RESP 18; TEMP 37.1; O2SAT 100
== END 2022-05-22 13:22 | disposition home or self-care (01) | DRG 542 ==
LOC: ANHLDR 02:46 → ANHOB2 17:57
PROVIDERS: Admitting Provider Obstetrics & Gynecology; PCP Family Medicine; Visit Provider Student in an Organized Health Care Education/Training Program
DX: O14.04 Mild to moderate pre-eclampsia, complicating childbirth (principal); O72.1 Other immediate postpartum hemorrhage; O67.8 Other intrapartum hemorrhage; O10.92 Unspecified pre-existing hypertension complicating childbirth; O70.20 Third degree perineal laceration during delivery, unspecified; Z3A.39 39 weeks gestation of pregnancy; Z37.0 Single live birth
CPT/HCPCS: 36415; 80053; 81001; 82570; 84156; 84550; 85014; 85018; 85025; 86592; 86850; 86900; 86901; 87086; 88307; 90715; A9270; J2405; J2590; J2795; J3475; J7120

== ENCOUNTER 2022-06-18 11:55 | Outpatient (CLI) | payer OTHER, SELFPAY ==
[2022-06-18 18:36] LABS: Alanine Aminotransferase 31 U/L (6-35); Albumin Level 4.8 g/dL (3.5-5.1); Alkaline Phosphatase 62 U/L (38-126); Anion Gap 8 mmol/L (8-16); Aspartate Amino Transferase 42 U/L (14-36); Bilirubin,Total 0.7 mg/dL (0.2-1.3); Blood Urea Nitrogen 14 mg/dL (7-17); Calcium 9.4 mg/dL (8.4-10.2); Carbon Dioxide 29 mmol/L (22-30); Chloride 102 mmol/L (98-107); Cholesterol 271 mg/dL (0-200); Estimated Glomerular Filt Rate > 60; Glucose 86 mg/dL (65-110); HDL Direct 48 mg/dL; Potassium 3.8 mmol/L (3.4-5.0); Sodium 139 mmol/L (137-145); Triglycerides 185 mg/dL (<150)
[2022-06-18 18:42] LABS: Basophils Absolute Auto 0.1 K/mm3 (0.0-0.1); Basophils Percent Auto 1.4 % (0.2-1.2); Eosinophils Absolute Auto 0.2 K/mm3 (0-0.3); Hematocrit 41.3 % (37.0-47.0); Hemoglobin 13.2 g/dL (12.0-15.0); Immature Granulocyte Absolute 0.01 K/mm3 (0.00-0.031); Immature Granulocyte Percent A 0.2 % (0-0.5); Lymphocytes Absolute Auto 1.53 K/mm3 (0.9-3.2); Lymphocytes Percent Auto 30.8 % (18.3-44.2); Mean Corpuscular Hemoglobin 31.6 pg (26-34); Mean Corpuscular Volume 98.8 fl (80-100); Mean Platelet Volume 9.8 fl (7.4-10.4); Monocytes Absolute Auto 0.4 K/mm3 (0.1-0.6); Monocytes Percent Auto 8.9 % (2.6-8.5); Neutrophils Absolute Auto 2.8 K/mm3 (1.3-6.7); Neutrophils Percent Auto 55.7 % (45.5-73.1); Platelet Count Result 316 k/mm3 (150-375); Red Blood Count 4.18 M/mm3 (4.2-5.4); Red Cell Distribution Width 12.9 % (11.5-14.5)
[2022-06-18 18:47] LABS: LDL Cholesterol Direct 159 mg/dL
== END 2022-06-18 11:56 | disposition home or self-care (01) ==
LOC: ANHBWCLAB 11:56
PROVIDERS: PCP Family Medicine; Visit Provider Nurse Practitioner Family
DX: Z00.00 Encounter for general adult medical examination without abnormal findings (principal)
CPT/HCPCS: 36415; 80053; 80061; 85025

== ENCOUNTER 2022-11-15 11:13 | Emergency (ER) | payer OTHER, SELFPAY ==
[2022-11-15 11:22] VITALS: BP 166/88; PULSE 87; RESP 16; TEMP 36.6; O2SAT 100
--- NOTE | 2022-11-15 11:43 | ED.DIZZY ---
HPI - Dizziness General Chief Complaint: Dizziness Stated Complaint: Dizziness Source: patient and RN notes reviewed History of Present Illness HPI Narrative: 37 yo F presents to urgent care with complaints of dizziness last night. Pt states she woke up this morning at 2am and was dizzy. Pt states she drank some water and went back to bed. Pt states she woke up again at 5 am and still had a little dizziness but it was better than before. Pt states she felt like the room was spinning initially. Pt states she drank some more water and took one of her Labetalol pills at 5 am with good relief. Pt states she is no longer dizzy. Denies any ISBELL, numbness, tingling, chest pain, SOB, N/V/D, recent illness, fevers, chills, ear pain, congestion, or tinnitus. Pt admits to being prescribed Labetalol TID but only takes it when she feels like she needs it. Pt was found to have pre-eclampsia about 6 months ago. Related Data Allergies Allergy/AdvReac Type Severity Reaction Status Date / Time No Known Allergies Allergy Verified 09/06/22 13:48 Review of Systems Review of Systems: Pertinent positives and pertinent negatives per HPI. [facility] Past Medical History Medical History Anxiety Encounter for Depo-Provera contraception History of COVID-19 Suppression of menses Surgical History Surgical History No pertinent past surgical history Family History Family History Sibling Hypertension Mother Hypertension Social History Social History Social History: The patient lives in [place]. Originally from the [facility]. She works at [employer]. Lifelong nonsmoker. Drinks perhaps 1 alcoholic beverage a week. No illicit substance use. Surrogate decision maker: Newton Keene. Code status: Full code. Smoking status: Never smoker Alcohol intake: never Substance use: never Lack of Transportation: No Lack of Food: Never True Current Housing: I Have Housing Concerned About Future Housing: No Difficulty Paying Gas/Electric Bills: No Difficulty Paying for Meds: No Currently Unemployed: No Education: Trade/Vocational Certificate Difficulty w/ Childcare or Family Care: No Living arrangements: with family Occupation/Education: unemployed Gender identity (if verbalized by the patient): Female Sexual Orientation (if Verbalized by the Patient): Straight or Heterosexual Spiritual care concerns: No Comments At the time of my signature, I reviewed and agree with the nursing past medical, surgical, social, and family history. There is no relevant family history pertinent to the patient complaint. Exam Narrative: GENERAL: This is a well-nourished, well-developed patient, in no apparent distress. HEAD: normocephalic, atraumatic. EYES: Sclera clear/white. Vision is grossly intact. EARS: External ears normal, auditory canals clear and without drainage, TMs normal without perforation. Hearing grossly intact. NOSE: External nose normal with no obvious nasal discharge, nares without redness, no rhinorrhea. THROAT: Mucous membranes moist, posterior pharynx clear. NECK: Neck supple, non-tender without lymphadenopathy, masses or thyromegaly. CARDIOVASCULAR: Regular rate and rhythm without murmurs, gallops, or rubs. RESPIRATORY: Clear to auscultation. Breath sounds equal bilaterally. No wheezes, rales, or rhonchi. SKIN: warm, intact with no suspicious lesions or rash, good texture and turgor. NEURO: awake, alert, and oriented to person, place and time. There were no obvious focal neurologic abnormalities. EXTREMITIES: No clubbing, cyanosis, or edema. No joint tenderness, effusion, or edema noted. BACK: Nontender without deformity or crepitus. No flank tenderness. Course Course Level of Care: Ita
== END 2022-11-15 11:54 | disposition home or self-care (01) ==
PROVIDERS: Emergency Provider Nurse Practitioner Family; PCP Family Medicine
DX: I10 Essential (primary) hypertension (principal)
CPT/HCPCS: 99213; G0463

== ENCOUNTER 2022-12-03 09:59 | Outpatient (CLI) | payer OTHER, SELFPAY ==
[2022-12-03 19:26] LABS: Alanine Aminotransferase 245 U/L (6-35); Albumin Level 4.8 g/dL (3.5-5.1); Alkaline Phosphatase 91 U/L (38-126); Anion Gap 6 mmol/L (8-16); Aspartate Amino Transferase 208 U/L (14-36); Bilirubin,Total 0.8 mg/dL (0.2-1.3); Blood Urea Nitrogen 12 mg/dL (7-17); Calcium 9.4 mg/dL (8.4-10.2); Carbon Dioxide 29 mmol/L (22-30); Chloride 105 mmol/L (98-107); Cholesterol 185 mg/dL (0-200); Estimated Glomerular Filt Rate > 60; Glucose 93 mg/dL (65-110); HDL Direct 44 mg/dL; Potassium 4.7 mmol/L (3.4-5.0); Sodium 140 mmol/L (137-145); Triglycerides 58 mg/dL (<150)
[2022-12-03 19:37] LABS: LDL Cholesterol Direct 109 mg/dL
== END 2022-12-03 10:00 | disposition home or self-care (01) ==
PROVIDERS: PCP Nurse Practitioner Adult Health; Visit Provider Nurse Practitioner Adult Health
DX: I10 Essential (primary) hypertension (principal)
CPT/HCPCS: 36415; 80053; 80061

== ENCOUNTER 2022-12-04 15:12 | Outpatient (CLI) | payer OTHER, SELFPAY ==
[2022-12-04 19:12] LABS: Alanine Aminotransferase 261 U/L (6-35); Albumin Level 4.9 g/dL (3.5-5.1); Alkaline Phosphatase 93 U/L (38-126); Aspartate Amino Transferase 136 U/L (14-36); Bilirubin,Total 0.6 mg/dL (0.2-1.3)
[2022-12-04 20:02] LABS: Hepatitis B Surface Antigen Negative (Negative)
[2022-12-04 20:08] LABS: HAV RESULT Negative (Negative); Hepatitis B Core IgM Result Negative (Negative)
[2022-12-04 20:19] LABS: Hepatitis C Virus Antibody Negative (Negative)
== END 2022-12-04 15:13 | disposition home or self-care (01) ==
PROVIDERS: PCP Nurse Practitioner Adult Health; Visit Provider Nurse Practitioner Adult Health
DX: R74.8 Abnormal levels of other serum enzymes (principal)
CPT/HCPCS: 36415; 80074; 80076

== ENCOUNTER 2022-12-19 08:18 | Outpatient (CLI) | payer OTHER, SELFPAY ==
--- NOTE | ~2022-12-19 | US_ITS ---
US abdomen limited INDICATION: Abnormal levels of serum enzymes PROCEDURE: Realtime right upper abdominal ultrasound. COMPARISON: No prior studies for comparison. FINDINGS: The pancreas is normal without focal mass or pancreatic ductal dilation. Liver echotexture is normal without focal mass or intrahepatic biliary dilatation. There is normal directional flow i n the portal vein. The gallbladder is normal without stones, gallbladder wall thickening or pericholecystic fluid. Comm on bile duct measures 2.3 mm. No sonographic Chong's sign. IMPRESSION: 1: Normal limited abdominal ultrasound. Reviewed, dictated and finalized at location B.
== END 2022-12-19 08:19 | disposition home or self-care (01) ==
LOC: ANHIMG 08:20
PROVIDERS: PCP Nurse Practitioner Adult Health; Visit Provider Nurse Practitioner Adult Health
DX: R74.8 Abnormal levels of other serum enzymes (principal)
CPT/HCPCS: 76705

== ENCOUNTER 2023-03-05 13:47 | Outpatient (CLI) | payer OTHER, SELFPAY ==
[2023-03-05 18:55] LABS: Alanine Aminotransferase 158 U/L (6-35); Albumin Level 4.5 g/dL (3.5-5.1); Alkaline Phosphatase 87 U/L (38-126); Aspartate Amino Transferase 91 U/L (14-36); Bilirubin,Total 0.8 mg/dL (0.2-1.3)
== END 2023-03-05 13:48 | disposition home or self-care (01) ==
LOC: ANHBWCLAB 13:48
PROVIDERS: PCP Nurse Practitioner Adult Health; Visit Provider Nurse Practitioner Adult Health
DX: R74.8 Abnormal levels of other serum enzymes (principal)
CPT/HCPCS: 36415; 80076

== ENCOUNTER 2023-03-26 13:47 | Outpatient (CLI) | payer OTHER, SELFPAY ==
--- NOTE | 2023-03-26 14:00 | ECHO_ITS ---
Patient Info Name: Elisabeth Johnson Age: 38 years : 1985 Gender: Female Ht: 66 in Wt: 133 lbs BSA: 1.68 m2 HR: 101 bpm BP: 140 / 87 mmHg Technical Quality: Good Exam Date: 03/26/2023 2:07 PM Exam Location: Echo Lab Patient Status: Outpatient Admit Date: 03/26/2023 Staff Ordering Physician: Oksana Nevarez APRN Attending Provider: Oksana Nevarez APRN Referring Physician: Roque LEONARDO; Exam Type: CA echo doppler color flow Study Info Indications R01.1 - Cardiac murmur, unspecified Complete two-dimensional, color flow and Doppler transthoracic echocardiogram is performed. Summary 1. Complete two-dimensional, color flow and Doppler transthoracic echocardiogram is performed. 2. Left ventricular chamber dimension is normal. 3. Left ventricular systolic function is normal, estimated at 60-65%. 4. The left ventricular diastolic function is normal. 5. E/e' 8 is minimally elevated. 6. There is trace tricuspid valve regurgitation. Left Ventricle E/e' 8 is minimally elevated. Left ventricular chamber dimension is normal. Left ventricular systolic function is normal, estimated at 60-65%. The left ventricular diastolic function is normal. Right Ventricle Right ventricular systolic function is normal and with normal TAPSE 2.0 cm. Right ventricular chamber dimension is normal. Left Atria Left atrial chamber dimension is normal. Right Atria Right atrial chamber dimension is normal. Aortic Valve The aortic valve is trileaflet. There is no aortic valve stenosis. There is no aortic valve regurgitation. Pulmonic Valve There is no pulmonic regurgitation. Mitral Valve There is no mitral valve stenosis. There is no mitral valve regurgitation. Tricuspid Valve RVSP is not calculated due to an inadequate TR jet. There is trace tricuspid valve regurgitation. Pericardium/Pleural There is no pericardial effusion. Inferior Vena Cava Normal inferior vena cava with >50% collapse upon inspiration consistent with normal right atrial pressure, 5 mmHg. Aorta The aortic root size at the sinus of Valsalva is normal. Left Ventricular Outflow Tract Name Value Normal LVOT 2D LVOT Diameter 1.9 cm LVOT Doppler LVOT Peak Gradient 8 mmHg LVOT Mean Gradient 4 mmHg LVOT VTI 26 cm LVOT VTI/AV VTI Ratio 0.7 LVOT Stroke Volume 74 ml LVOT CO 5.7 l/min LVOT CI 3.4 l/min/m2 Pulmonic Valve Name Value Normal PV Doppler PV Peak Gradient 7 mmHg Mitral Valve Name Value Normal MV Doppler
== END 2023-03-26 13:48 | disposition home or self-care (01) ==
LOC: ANHCARD 13:51
PROVIDERS: PCP Nurse Practitioner Adult Health; Visit Provider Nurse Practitioner Adult Health
DX: R01.1 Cardiac murmur, unspecified (principal)
CPT/HCPCS: 93306

== ENCOUNTER 2023-10-11 13:27 | Emergency (ER) | payer OTHER, SELFPAY ==
[2023-10-11 13:35] VITALS: BP 152/86; PULSE 94; RESP 16; TEMP 37.1; O2SAT 100
--- NOTE | 2023-10-11 13:54 | ED.URI ---
HPI - URI/Sore Throat General Chief Complaint: Upper Respiratory Infection Stated Complaint: Sore Throat Time Seen by Provider: 10/11/23 13:55 Source: patient, RN notes reviewed and old records reviewed Mode of arrival: ambulatory Limitations: no limitations History of Present Illness HPI Narrative: 38-year-old female presents to the [facility] with complaints of a sore throat. Symptoms started on Saturday, 4 days ago. Patient states on Saturday that she swallowed water from a water park and started with a sore throat the following day. Denies any other symptoms Related Data Allergies Allergy/AdvReac Type Severity Reaction Status Date / Time No Known Allergies Allergy Verified 10/11/23 14:15 Review of Systems Review of Systems: All systems reviewed & are unremarkable except as noted in HPI and below Constitutional: Constitutional: Reports no additional constitutional complaints Eyes: Eyes: Reports no additional eye complaints ENT: Reports as per HPI and Reports sore throat Cardiovascular: Cardiovascular: Reports no additional cardiovascular complaints, Denies chest pain and Denies dyspnea Respiratory: Respiratory: Reports no additional respiratory complaints, Denies chest congestion, Denies cough and Denies dyspnea Gastrointestinal: Gastrointestinal: Reports no additional gastrointestinal complaints, Denies abdominal pain, Denies nausea and Denies vomiting Musculoskeletal: Musculoskeletal: Reports no additional musculoskeletal complaints Integumentary/Breasts: Skin/Breast: Reports system reviewed and no additional complaints, except as docu Neurologic: Reports system reviewed and no additional complaints, except as documented Psychiatric: Psychiatric: Reports no additional psychiatric complaints Allergic/Immunologic: Allergic/Immunologic: Reports no additional allergic/immunologic complaints PMFSH Past Medical History Medical History Anxiety Encounter for Depo-Provera contraception History of COVID-19 Suppression of menses Surgical History Surgical History No pertinent past surgical history Family History Family History Sibling Hypertension Mother Hypertension Social History Social History Social History: The patient lives in [place]. Originally from the [facility]. She works at [employer]. Lifelong nonsmoker. Drinks perhaps 1 alcoholic beverage a week. No illicit substance use. Surrogate decision maker: Newton Keene. Code status: Full code. Smoking status: Never smoker Alcohol intake: never Substance use: never Lack of Transportation: No Lack of Food: Never True Current Housing: I Have Housing Concerned About Future Housing: No Difficulty Paying Gas/Electric Bills: No Difficulty Paying for Meds: No Currently Unemployed: No Education: Trade/Vocational Certificate Difficulty w/ Childcare or Family Care: No Living arrangements: with family Occupation/Education: unemployed Gender identity (if verbalized by the patient): Female Sexual Orientation (if Verbalized by the Patient): Straight or Heterosexual Spiritual care concerns: No Comments At the time of my signature, I reviewed and agree with the nursing past medical, surgical, social, and family history. There is no relevant family history pertinent to the patient complaint. Exam Const: General: cooperative, healthy appearing, comfortable, no acute distress, well developed, alert and well nourished Nutritional Appearance: well nourished Orientation/consciousness: patient oriented x3 Limitations: no limitations HENMT: Head: normal to inspection Ears: hearing grossly normal bilaterally, external ears normal, TM's normal bilaterally, EAC's normal, mastoids normal and no periauricular mike
[2023-10-11 14:20] LABS: EDSTREPNEGPOS1 Presumptive Negative
== END 2023-10-11 14:09 | disposition home or self-care (01) ==
PROVIDERS: Emergency Provider Nurse Practitioner; PCP Nurse Practitioner Adult Health
DX: J02.9 Acute pharyngitis, unspecified (principal); Z86.16 Personal history of COVID-19
CPT/HCPCS: 87081; 87880; 99213; G0463

== ENCOUNTER 2023-12-03 11:06 | Outpatient (CLI) | payer OTHER, SELFPAY ==
[2023-12-03 18:52] LABS: Basophils Absolute Auto 0.1 K/mm3 (0.0-0.1); Basophils Percent Auto 1.1 % (0.2-1.2); Eosinophils Absolute Auto 0.1 K/mm3 (0-0.3); Eosinophils Percent Auto 2.5 % (0-4.4); Hematocrit 40.7 % (37.0-47.0); Lymphocytes Absolute Auto 1.58 K/mm3 (0.9-3.2); Lymphocytes Percent Auto 35.7 % (18.3-44.2); Mean Corpuscular HGB Conc 31.9 g/dl (32-36); Mean Corpuscular Hemoglobin 30.9 pg (26-34); Mean Corpuscular Volume 96.7 fl (80-100); Mean Platelet Volume 9.9 fl (7.4-10.4); Monocytes Absolute Auto 0.4 K/mm3 (0.1-0.6); Neutrophils Absolute Auto 2.3 K/mm3 (1.3-6.7); Neutrophils Percent Auto 51.7 % (45.5-73.1); Platelet Count Result 357 k/mm3 (150-375); Red Blood Count 4.21 M/mm3 (4.2-5.4); Red Cell Distribution Width 12.8 % (11.5-14.5); White Blood Count 4.4 K/mm3 (4.5-10.0)
[2023-12-03 19:04] LABS: Add Urine Microscopic? NO; Appearance Urine Clear (Clear); Bilirubin Urine Negative (Negative); Blood Urine Negative (Negative); Color Urine Yellow (Yellow); Glucose Urine UA Negative (Negative); Ketones Urine Negative (Negative); Leukocyte Esterase Ur Negative LEU/UL (Negative); Nitrate Urine Negative (Negative); Protein Urine Negative (Negative); Specific Grav Ur 1.012 (1.001-1.035); Urobilinogen Urine 0.2 mg/dL (<2.0); pH Urine 5.5 (5.0-9.0)
[2023-12-03 19:06] LABS: Alanine Aminotransferase 36 U/L (6-35); Albumin Level 4.7 g/dL (3.5-5.1); Alkaline Phosphatase 63 U/L (38-126); Anion Gap 8 mmol/L (4-12); Aspartate Amino Transferase 106 U/L (14-36); Bilirubin,Total 0.6 mg/dL (0.2-1.3); Blood Urea Nitrogen 15 mg/dL (7-17); Carbon Dioxide 30 mmol/L (22-30); Chloride 99 mmol/L (98-107); Cholesterol 194 mg/dL (0-200); Estimated Glomerular Filt Rate > 60; Glucose 75 mg/dL (65-110); HDL Direct 48 mg/dL; Magnesium 2.4 mg/dL (1.6-2.3); Potassium 3.8 mmol/L (3.4-5.0); Sodium 137 mmol/L (137-145); Triglycerides 56 mg/dL (<150)
[2023-12-03 19:16] LABS: LDL Cholesterol Direct 104 mg/dL
== END 2023-12-03 11:07 | disposition home or self-care (01) ==
LOC: ANHBWCLAB 11:08
PROVIDERS: PCP Nurse Practitioner Adult Health; Visit Provider Nurse Practitioner Adult Health
DX: I10 Essential (primary) hypertension (principal); R39.9 Unspecified symptoms and signs involving the genitourinary system; R20.2 Paresthesia of skin
CPT/HCPCS: 36415; 80053; 80061; 81003; 82607; 83735; 84443; 85025

== ENCOUNTER 2024-03-07 07:05 | Emergency (ER) | payer OTHER, SELFPAY ==
[2024-03-07] VITALS (14 sets, daily range): BP systolic 102–160; BP diastolic 64–86; PULSE 69–115; RESP 13–18; TEMP 36.3; O2SAT 100
--- NOTE | ~2024-03-07 | XR_ITS ---
XR chest 2V DATE: 03/07/2024 07:48 INDICATION: Chest pain TECHNIQUE: PA and lateral views COMPARISON: 03/26/2021 PA and lateral chest FINDINGS: No heart size. No hilar or mediastinal enlargement. Mild bilateral hyperinflation. No pulmonary infiltrate or consolidation, pleural effusion, congestion or pneumothorax. Chronic mild scarring in the right mid lung, stable since 03/26/2021. Included skeletal structures are unremarkable. IMPRESSION: Chronic mild scarring in the right midlung Mild bilateral hyperinflation Reviewed, dictated and finalized at location A. ROOM CLERK
--- NOTE | 2024-03-07 07:11 | ECG_ITS ---
Test Date: 2024-03-07 07:17:01 Measurements Intervals [place] Rate: 83 P: 117 NC: 162 QRS: 175 QRSD: 107 T: 151 QT: 365 QTc: 430 Interpretive Statements SINUS RHYTHM WITH SINUS ARRHYTHMIA ARM LEADS REVERSED [INVERTED P AND QRS IN I] ATYPICAL ECG No previous ECG available for comparison Electronically Signed On 03-07-2024 10:51:25 SAMPLE DRILLER by Marco A Benítez M.D.
[2024-03-07 07:30] LABS: Basophils Absolute Auto 0.1 K/mm3 (0.0-0.1); Basophils Percent Auto 0.6 % (0.2-1.2); Eosinophils Absolute Auto 0.1 K/mm3 (0-0.3); Eosinophils Percent Auto 1.2 % (0-4.4); Hematocrit 42.5 % (37.0-47.0); Hemoglobin 13.9 g/dL (12.0-15.0); Immature Granulocyte Absolute 0.02 K/mm3 (0.00-0.031); Immature Granulocyte Percent A 0.2 % (0-0.5); Lymphocytes Absolute Auto 2.02 K/mm3 (0.9-3.2); Lymphocytes Percent Auto 23.5 % (18.3-44.2); Mean Corpuscular HGB Conc 32.7 g/dl (32-36); Mean Corpuscular Hemoglobin 30.4 pg (26-34); Mean Platelet Volume 9.7 fl (7.4-10.4); Monocytes Absolute Auto 0.8 K/mm3 (0.1-0.6); Monocytes Percent Auto 8.8 % (2.6-8.5); Neutrophils Absolute Auto 5.7 K/mm3 (1.3-6.7); Neutrophils Percent Auto 65.7 % (45.5-73.1); Platelet Count Result 311 k/mm3 (150-375); Red Blood Count 4.57 M/mm3 (4.2-5.4); Red Cell Distribution Width 12.7 % (11.5-14.5); White Blood Count 8.6 K/mm3 (4.5-10.0)
[2024-03-07 07:47] LABS: Alanine Aminotransferase 83 U/L (6-35); Albumin Level 4.9 g/dL (3.5-5.1); Alkaline Phosphatase 84 U/L (38-126); Anion Gap 10 mmol/L (4-12); Aspartate Amino Transferase 62 U/L (14-36); Bilirubin,Total 0.9 mg/dL (0.2-1.3); Blood Urea Nitrogen 17 mg/dL (7-17); Calcium 9.4 mg/dL (8.4-10.2); Carbon Dioxide 26 mmol/L (22-30); Chloride 101 mmol/L (98-107); Estimated CRCL calculation 69 ml/min; Estimated Glomerular Filt Rate > 60; Glucose 112 mg/dL (65-110); Lipase 126 U/L (23-300); Potassium 3.5 mmol/L (3.4-5.0); Sodium 137 mmol/L (137-145)
[2024-03-07 07:50] LABS: INR 0.9; Prothrombin Time 12.7 Seconds (11.1-14.7)
[2024-03-07 07:51] LABS: Partial Thromboplastin Time 29.6 Seconds (22.3-36.8)
[2024-03-07 07:57] LABS: Troponin I < 0.012 ng/mL (0.000-0.034)
[2024-03-07] MEDS: ASPIRIN 81 MG CHEWABLE TABLET 324 MG PO (09:25)
--- NOTE | 2024-03-07 10:40 | ECG_ITS ---
Test Date: 2024-03-07 10:47:30 Measurements Intervals [place] Rate: 72 P: 53 MO: 163 QRS: 20 QRSD: 94 T: 19 QT: 383 QTc: 419 Interpretive Statements SINUS RHYTHM WITH SINUS ARRHYTHMIA OTHERWISE NORMAL ECG Electronically Signed On 03-07-2024 10:53:27 COMMUNITY SERVICES OFFICER by Marco A Benítez M.D.
--- NOTE | 2024-03-07 11:09 | ED_ITS ---
HPI - Chest Pain General Chief Complaint: Chest Pain Stated Complaint: burning in chest Time Seen by Provider: 03/07/24 09:21 History of Present Illness HPI narrative: Patient is a 39-year-old female who presents with left-sided chest pain. Began this morning. No exertional component. No fevers or chills or sweats. Cannot describe aggravating nor alleviating factors. No history of heart disease. Has history of anxiety. Related Data Allergies Allergy/AdvReac Type Severity Reaction Status Date / Time No Known Allergies Allergy Verified 03/07/24 07:06 Review of Systems 2 Review of Systems: All systems reviewed & are unremarkable except as noted in HPI and below Constitutional: Constitutional: Reports no additional constitutional complaints ENT: Reports system reviewed and no additional complaints, except as documented Cardiovascular: Cardiovascular: Reports no additional cardiovascular complaints Respiratory: Respiratory: Reports no additional respiratory complaints Musculoskeletal: Musculoskeletal: Reports no additional musculoskeletal complaints PMFSH Past Medical History Medical History Anxiety Encounter for Depo-Provera contraception History of COVID-19 Suppression of menses Surgical History Surgical History No pertinent past surgical history Family History Family History Sibling Hypertension Mother Hypertension Social History Social History Social History: The patient lives in [place]. Originally from the [facility]. She works at [employer]. Lifelong nonsmoker. Drinks perhaps 1 alcoholic beverage a week. No illicit substance use. Surrogate decision maker: Newton Keene. Code status: Full code. Smoking status: Never smoker Alcohol intake: never Substance use: never Lack of Transportation: No Lack of Food: Never True Current Housing: I Have Housing Concerned About Future Housing: No Difficulty Paying Gas/Electric Bills: No Difficulty Paying for Meds: No Currently Unemployed: No Education: Trade/Vocational Certificate Difficulty w/ Childcare or Family Care: No Living arrangements: with family Occupation/Education: unemployed Gender identity (if verbalized by the patient): Female Sexual Orientation (if Verbalized by the Patient): Straight or Heterosexual Spiritual care concerns: No Exam 2 Narrative: GENERAL: Well-appearing, well-nourished, and in no acute distress. HEAD: Normocephalic, atraumatic. ENT: Mucous membranes moist. NECK: Supple. CHEST: Clear to auscultation. No respiratory distress. HEART: Regular rate and rhythm. Normal peripheral pulses. ABDOMEN: Soft, nontender, nondistended. EXTREMITIES: Normal range of motion. No edema. SKIN: Warm, dry, no rash. NEURO: Alert and oriented x3. PSYCH: Normal mood and affect. Course Vital Signs Vital signs: Vital Signs Temperature 97.4 F L 03/07/24 07:08 Pulse Rate 102 H 03/07/24 07:08 Respiratory Rate 15 03/07/24 07:08 Blood Pressure 160/86 H 03/07/24 07:08 Pulse Oximetry 100 03/07/24 07:08 Oxygen Delivery Room Air 03/07/24 07:08 Temperature 97.4 F L 03/07/24 07:08 Pulse Rate 98 03/07/24 09:18 Respiratory Rate 17 03/07/24 09:11 Blood Pressure 146/86 H 03/07/24 09:11 Pulse Oximetry 100 03/07/24 09:18 Oxygen Delivery Room Air 03/07/24 09:18 MDM - Chest Pain Lab Data 03/07/24 07:21 03/07/24 07:21 Labs: Lab Results 03/07/24 03/07/24 Range/Units 07:21 10:53 WBC 8.6 (4.5-10.0) K/mm3 RBC 4.57 (4.2-5.4) M/mm3 Hgb 13.9 (12.0-15.0) g/dL Hct 42.5 (37.0-47.0) % MCV 93.0 (80-100) fl MCH 30.4 (26-34) pg MCHC 32.7 (32-36) g/dl RDW 12.7 (11.5-14.5) % Plt Count 311 (150-375) k/mm3 MPV 9.7 (7.4-10.4) fl Immature Gran % (Auto) 0.2 (0-0.5) % Neut % (Auto) 65.7 (45.5-73.1) % Lymph % (Auto) 23.5 (18.3-44.2) % [place] % (Auto) 8.8 H (2.6-8.5) % Eos % (Auto) 1.2 (0-4.4) % Baso % (Auto) 0.6 (0.2-1.2) % Lymph # (Auto) 2.02 (0.9-3.2) K/mm3 [place] # (Auto) 0.8 H (0.1-0.6) K/mm3 Eos # (Auto) 0.1 (0-0.3) K/mm3 Baso # (Auto) 0.1 (0.0-0.1) K/mm3 Abs Immat Gran (auto) 0.02 (0.00-0.031) K/mm3 Absolute Neuts (auto) 5.7 (1.3-6.7) K/mm3 Absolute Nucleated RBC 0.000 (0.0-0.012) K/mm3 Nucleated RBC % 0.0 (0.0-0.2) % PT 12.7 (11.1-14.7) Seconds INR 0.9 APTT 29.6 (22.3-36.8) Seconds Sodium 137 (137-145) mmol/L Potassium 3.5 (3.4-5.0) mmol/L Chloride 101 (98-107) mmol/L Carbon Dioxide 26 (22-30) mmol/L Anion Gap 10 (4-12) mmol/L BUN 17 (7-17) mg/dL Creatinine 0.81 (0.7-1.0) mg/dL Estim Creat Clear Calc 69 ml/min Estimated GFR > 60 (59 - ) Glucose 112 H (65-110) mg/dL Calcium 9.4 (8.4-10.2) mg/dL Total Bilirubin 0.9 (0.2-1.3) mg/dL AST 62 H (14-36) U/L ALT 83 H (6-35) U/L Alkaline Phosphatase 84 (38-126) U/L Troponin I < 0.012 < 0.012 (0.000-0.034) ng/mL Total Protein 8.0 (6.3-8.2) g/dL Albumin 4.9 (3.5-5.1) g/dL Lipase 126 (23-300) U/L Imaging Data Radiologist's impression: ITS Impressions Chest X-Ray 03/07/24 07:50 IMPRESSION: Chronic mild scarring in the right midlung Mild bilateral hyperinflation ECG Data EKG #1: ECG completion date: 03/07/24 ECG completion time: 07:17 EKG Interpretation: normal rate (83), sinus rhythm, non-specific ST changes, normal QRS, normal QT and NL axis Discharge Plan Discharge Clinical Impression: Chest pain Patient Disposition: Home, Self-Care Condition: Stable Instructions: Chest Pain (ED) Additional Instructions: Please return to the emergency department if you develop severe and persistent chest pain, difficulty breathing, dizziness, leg swelling or if you are coughing up blood as these can be signs of a medical emergency. Please call your doctor for a follow up appointment to determine the need for further testing. Patient Language: Swedish Prescriptions: No Action lisinopril 20 mg tablet See Rx Instructions .ROUTE .COMPLEX Qty: 90 1RF Dose Instruction: TAKE 1 TABLET BY MOUTH DAILY Rx Instructions: TAKE 1 TABLET BY MOUTH DAILY Follow-up/Referrals: Oksana Nevarez APRN [Primary Care Provider] - 1 Week Quality HEART score for chest pain patients History: slightly suspicious ECG: normal Age: < or = to 45 years Risk factors: 1 or 2 risk factors Troponin: < or = to 1x normal limit Heart score: 1
[2024-03-07 11:38] LABS: Troponin I < 0.012 ng/mL (0.000-0.034)
== END 2024-03-07 12:25 | disposition home or self-care (01) ==
PROVIDERS: Emergency Medicine; Emergency Provider Emergency Medicine; PCP Nurse Practitioner Adult Health
DX: R07.9 Chest pain, unspecified (principal)
CPT/HCPCS: 36415; 71046; 80053; 83690; 84484; 85025; 85610; 85730; 93005; 99284; A9270

== ENCOUNTER 2024-07-10 14:43 | Outpatient (CLI) | payer OTHER, SELFPAY ==
--- NOTE | ~2024-07-10 | MM_ITS ---
EXAMINATION: MM screening cheng [place] HISTORY: Screening TECHNIQUE: Craniocaudal and mediolateral oblique 3-D tomosynthesis images were obtained and synthetic 2-D images were generated. CAD analysis was submitted and interpreted. COMPARISON: No prior mammogram is available for comparison at this institution. BREAST PARENCHYMAL COMPOSITION: Dense: The breasts are heterogeneously dense, which may obscure small masses FINDINGS: There is focal asymmetry in the upper outer quadrant of the left breast, posterior third. T here is no mammographic evidence for malignancy in the right breast. IMPRESSION: 1. Focal left breast asymmetry upper outer quadrant, posterior third. 2. Additional mammographic views and possible breast ultrasound are recommended. BI-RADS Category 0: Incomplete: Needs additional imaging evaluation. Reviewed, dictated and finalized at location A. IMPRESSION: 1. Focal left breast asymmetry upper outer quadrant, posterior third. 2. Additional mammographic views and possible breast ultrasound are recommended . BI-RADS Category 0: Incomplete: Needs additional imaging evaluation.
--- OUTSIDE RECORDS SUMMARY | 2024-07-10 15:04 | XMS_ITS | Referral Summary ---
Author Organization [facility] [place] [address] Address [facility] [place] [place] [address] Care Team Providers Care Oil Well Service Operator Name Role Phone Zenon Dao MD Primary Care Provider [phone] Allergies No known active allergies Medications multivit with min-folic acid 200 mcg tablet,chewable Take 1 tablet by mouth blank driller before breakfast Active Active Problems No known active problems Social History Tobacco Use Types Packs/Day Years Used Date Smoking Tobacco: Never Comments Unknown Sex and Gender Information Value Date Recorded Sex Assigned at Not on file Legal Sex Female 7:01 PM AIR TURNING MACHINE FEEDER Gender Identity Not on file Sexual Orientation Not on file Last Filed Vital Signs Vital Sign Reading Time Taken Comments Blood Pressure 134/82 04/21/2021 11:01 AM AIR TURNING MACHINE FEEDER Pulse 78 04/21/2021 11:01 AM AIR TURNING MACHINE FEEDER Temperature 37.1 C (98.7 F) 03/10/2021 8:47 AM AIR TURNING MACHINE FEEDER Respiratory Rate 16 03/10/2021 8:47 AM AIR TURNING MACHINE FEEDER Oxygen Saturation 98% 04/21/2021 11:01 AM AIR TURNING MACHINE FEEDER Inhaled Oxygen Concentration - - Weight 54 kg (119 lb) 04/21/2021 11:01 AM AIR TURNING MACHINE FEEDER Height 167.6 cm (5' 6 ) 04/21/2021 11:01 AM AIR TURNING MACHINE FEEDER Body Mass Index 19.21 04/21/2021 11:01 AM AIR TURNING MACHINE FEEDER Plan of Treatment Not on file Insurance [address] [address] Care Teams Oil Well Service Operator Relationship Specialty Start Date End Date Zenon Dao MD PCP - General Emergency Medicine 03/27/21
--- OUTSIDE RECORDS SUMMARY | 2024-07-10 15:04 | XMS_ITS | Clinical Summary ---
Author Organization [facility] [address] Address [facility] [place] [address] Care Team Providers Care Ammonium Nitrate Crystallizer Name Role Phone Zenon Dao MD Primary Care Provider [phone] Allergies No known active allergies Medications multivit with min-folic acid 200 mcg tablet,chewable Take 1 tablet by mouth county tax assessor before breakfast Active Active Problems No known active problems Medical History Medical History Date Comments Anxiety Hypertension Family History Medical History Relation Name Comments Hypertension Other Relation Name Status Comments Other Social History Tobacco Use Types Packs/Day Years Used Date Smoking Tobacco: Never Comments Unknown Sex and Gender Information Value Date Recorded Sex Assigned at Not on file Legal Sex Female 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 MARINE GEOLOGIST Gender Identity Not on file Sexual Orientation Not on file Obstetrics History Last Filed Vital Signs Vital Sign Reading Time Taken Comments Blood Pressure 134/82 04/21/2021 11:01 AM MARINE GEOLOGIST Pulse 78 04/21/2021 11:01 AM MARINE GEOLOGIST Temperature 37.1 C (98.7 F) 03/10/2021 8:47 AM MARINE GEOLOGIST Respiratory Rate 16 03/10/2021 8:47 AM MARINE GEOLOGIST Oxygen Saturation 98% 04/21/2021 11:01 AM MARINE GEOLOGIST Inhaled Oxygen Concentration - - Weight 54 kg (119 lb) 04/21/2021 11:01 AM MARINE GEOLOGIST Height 167.6 cm (5' 6 ) 04/21/2021 11:01 AM MARINE GEOLOGIST Body Mass Index 19.21 04/21/2021 11:01 AM MARINE GEOLOGIST Plan of Treatment Not on file Insurance [facility] Care Teams Ammonium Nitrate Crystallizer Relationship Specialty Start Date End Date Zenon Dao MD PCP - General Emergency Medicine 03/27/21
--- OUTSIDE RECORDS SUMMARY | 2024-07-10 15:04 | XMS_ITS | Clinical Summary ---
Author Organization [facility] Address [address] [place] [address] Care Team Providers Care Manager Rehab Name Role Phone Oksana Nevarez APRN-HR SPECIALIST Primary Care Provider + Source Comments [facility] [employer],non-owned Affiliates and Associated Physician Practices is amultiple site organization consisting of ambulatory clinics and hospital sitesin [place], [place], [place] and [place]. This disclosure is being madepursuant to the Care Everywhere program and may not contain all information available regarding this patient. Last updated 17.[facility] [employer] Allergies No known active allergies Medications * Be aware that medications may not be up to date on this document. Alwaysverify current medications with the patient. lisinopril (Prinivil; Zestril) 20 MG tablet Take 1 (one) tablet by mouth once daily 02/28/2023 Active Active Problems Problem Noted Date Diagnosed Date Elevated liver enzymes 05/10/2023 Overview (05/10/2023): fibroscan 05/10/23 Date of Exam: 05/10/2023 LSM, kPa 5.2 CAP 217 AMA (advanced maternal age) multigravida 35+, unspecified trimester 10/26/2019 Supervision of primigravida of advanced maternal age, antepartum 10/26/2019 Overview (10/26/2019): Datinw3d ultrasound @ [facility], CRL: 65mm making ETTA-->05/08/19 summary: A+/Immune/-/- HIV NR Antibody screen: negative CF screen: negative Hemoglobin S: negative Family History Medical History Relation Name Comments Dementia Father None Known Mother Relation Name Status Comments Father Alive Mother Alive Social History Tobacco Use Types Packs/Day Years Used Date Smoking Tobacco: Never Smokeless Tobacco: Never Tobacco Cessation:Counseling Given: Not Answered Alcohol Use Standard Drinks/Week Comments Never 0 (1 standard drink = 0.6 oz pur e alcohol) AUDIT-C Answer Date Recorded Q1: How often do you have a drink containing alc ohol? Never 10/28/2019 Average Number of Drinks Not on file Frequency of Binge Drinking Not on file 03/2019 Comments No Sex and Gender Information Value Date Recorded Sex Assigned at Not on file Legal Sex Female 9:59 AM WAREHOUSE DISTRIBUTION SPECIALIST Gender Identity Not on file Sexual Orientation Not on file Last Filed Vital Signs Vital Sign Reading Time Taken Comments Blood Pressure 139/88 05/10/2023 1:32 PM CDT Pulse 103 05/10/2023 1:32 PM CDT Repeat HR=97 Temperature 36.8 C (98.2 F) 05/10/2023 1:32 PM CDT Respiratory Rate 18 03/09/2019 6:53 PM WAREHOUSE DISTRIBUTION SPECIALIST Oxygen Saturation 100% 05/10/2023 1:3 2 PM CDT Inhaled Oxygen Concentration - - Weight 59.3 kg (130 lb 12.8 oz) 05/10/2023 1:32 PM CDT Height 167.6 cm (5' 6 ) 05/10/2023 1:32 PM CDT Body Mass Index 21.11 05/10/2023 1:32 PM CDT Plan of Treatment Health Maintenance Due Date Last Done Comments LIPID TESTING 1984 MAMMOGRAM 1984 PAP SMEAR 1984 HIV SCREENING 01/29/1999 HEPATITIS C SCREENING 01/25/2002 DTAP/TDAP/TD VACCINES (1 - Tdap) 01/29/2003 HEPATITIS B VACCINE (1 of 3 - 19+ 3-dose series) 01/29/2003 COVID-19 VACCINE ( - 2023-2 5 season) 2023 DEPRESSION SCREENING 02/26/2024 INFLUENZA VACCINE (Season Ended) 2024 ZOSTER VACCINE (1 of 2) 01/29/2034 HIB VACCINE Aged Out No longer eligi ble based on patient's age to complete this topic HPV VACCINE Aged Out No longer eligi ble based on patient's age to complete this topic MENINGOCOCCAL (Group B) VACC INE SHARED DECISION-MAKING Aged Out No longer eligibl e based on patient's age to complete this topic MENINGOCOCCAL GROUPS A/C/Y/W VACCINE Aged Out No longer eligible b ased on patient's age to complete this topic PNEUMOCOCCAL VACCINE Aged Out No long er eligible based on patient's age to complete this topic Goals Goal Patient Goal Type Associated Problems Recent Progress Patient-Stated? Author Medication Management General Radha Carmichael RN Note: Expected end date: Ongoing Interventions: Take all medications as prescribed Let your doctor know right away about any changes in your medications Make sure to request a refill of your medication at least one week prior to your last dose Insurance Care Teams Manager Rehab Relationship Specialty Start Date End Date Oksana Nevarez APRN-CNP [address] [address] PCP - General Nurse Practitioner 05/10/23
== END 2024-07-10 14:44 | disposition home or self-care (01) ==
LOC: ANHIMG 14:47
PROVIDERS: PCP Nurse Practitioner Adult Health; Visit Provider Nurse Practitioner Adult Health
DX: Z12.31 Encounter for screening mammogram for malignant neoplasm of breast (principal); R92.8 Other abnormal and inconclusive findings on diagnostic imaging of breast
CPT/HCPCS: 77063; 77067

== ENCOUNTER 2024-07-23 13:08 | Outpatient (CLI) | payer OTHER, SELFPAY ==
--- NOTE | ~2024-07-23 | MMUS_ITS ---
EXAMINATION: US breast LT complete, MM diagnostic cheng [place] HISTORY: Follow-up left breast asymmetries. TECHNIQUE: Additional 3-D tomosynthesis images of the left breast were performed and synthetic 2-D im ages were generated. CAD analysis was submitted and interpreted. High resolution complete left breast ultrasound was performed. COMPARISON: 07/10/2024 BREAST PARENCHYMAL COMPOSITION: Dense: The breasts are heterogeneously dense, which may obscure small masses FINDINGS: MAMMOGRAPHIC FINDINGS: There are no suspicious masses, calcifications or architectural distortion in the left breast to sugg est malignancy. Left breast asymmetries compress with spot views, compatible with superimposed fibrog landular tissue. ULTRASOUND: Complete US of all 4 quadrants of the left breast/s and retroareolar region was reviewed. There are s mall cysts of the left breast at 3:00, 3 cm from the nipple measuring 3 mm and at 10:00, 3 cm from th e nipple measuring 3 mm. No suspicious masses to suggest malignancy. IMPRESSION: 1. No evidence for malignancy in the left breast. 2. Routine yearly screening mammogram and regular clinical breast examination are recommended. BI-RADS Category 2: Benign finding(s). Reviewed, dictated and finalized at location A. IMPRESSION: 1. No evidence for malignancy in the left breast. 2. Routine yearly screening mammogram and regular clinical breast examination a re recommended. BI-RADS Category 2: Benign finding(s).
--- OUTSIDE RECORDS SUMMARY | 2024-07-23 13:11 | XMS_ITS | Clinical Summary ---
Author Organization [facility] [address] Address [facility] [place] [address] Care Team Providers Care Laborer Wood Preserving Plant Name Role Phone Zenon Dao MD Primary Care Provider [phone] Allergies No known active allergies Medications multivit with min-folic acid 200 mcg tablet,chewable Take 1 tablet by mouth foley artist before breakfast Active Active Problems No known active problems Medical History Medical History Date Comments Anxiety Hypertension Family History Medical History Relation Name Comments Hypertension Other Relation Name Status Comments Other Social History Tobacco Use Types Packs/Day Years Used Date Smoking Tobacco: Never Comments Unknown Sex and Gender Information Value Date Recorded Sex Assigned at Not on file Legal Sex Female 7:01 PM FLAT OPTICAL ELEMENT MAKER Gender Identity Not on file Sexual Orientation Not on file Obstetrics History Last Filed Vital Signs Vital Sign Reading Time Taken Comments Blood Pressure 134/82 04/21/2021 11:01 AM FLAT OPTICAL ELEMENT MAKER Pulse 78 04/21/2021 11:01 AM FLAT OPTICAL ELEMENT MAKER Temperature 37.1 C (98.7 F) 03/10/2021 8:47 AM FLAT OPTICAL ELEMENT MAKER Respiratory Rate 16 03/10/2021 8:47 AM FLAT OPTICAL ELEMENT MAKER Oxygen Saturation 98% 04/21/2021 11:01 AM FLAT OPTICAL ELEMENT MAKER Inhaled Oxygen Concentration - - Weight 54 kg (119 lb) 04/21/2021 11:01 AM FLAT OPTICAL ELEMENT MAKER Height 167.6 cm (5' 6) 04/21/2021 11:01 AM FLAT OPTICAL ELEMENT MAKER Body Mass Index 19.21 04/21/2021 11:01 AM FLAT OPTICAL ELEMENT MAKER Plan of Treatment Not on file Insurance [facility] Care Teams Laborer Wood Preserving Plant Relationship Specialty Start Date End Date Zenon Dao MD PCP - General Emergency Medicine 03/27/21
--- OUTSIDE RECORDS SUMMARY | 2024-07-23 13:11 | XMS_ITS | Clinical Summary ---
Author Organization [facility] Address [address] [place] [address] Care Team Providers Care Quiller Hand Name Role Phone Oksana Nevarez APRN-CHEMICAL TESTER Primary Care Provider + Source Comments [facility],non-owned Affiliates and Associated Physician Practices is amultiple site organization consisting of ambulatory clinics and hospital sitesin [place], [place], [place] and [place]. This disclosure is being madepursuant to the Care Everywhere program and may not contain all information available regarding this patient. Last updated 17.[facility] [employer] Allergies No known active allergies Medications * [...] on file Legal Sex Female 9:59 AM DRIVER MEDIC Gender Identity Not on file Sexual Orientation Not on file Last Filed Vital Signs Vital Sign Reading Time Taken Comments Blood Pressure 139/88 05/10/2023 1:32 PM CDT Pulse 103 05/10/2023 1:32 PM CDT Repeat HR=97 Temperature 36.8 C (98.2 F) 05/10/2023 1:32 PM CDT Respiratory Rate 18 03/09/2019 6:53 PM DRIVER MEDIC Oxygen Saturation 100% 05/10/2023 1:3 2 PM CDT Inhaled Oxygen Concentration - - Weight 59.3 kg (130 lb 12.8 oz) 05/10/2023 1:32 PM CDT Height 167.6 cm (5' 6) 05/10/2023 1:32 PM CDT Body Mass Index [...] to your last dose Insurance Care Teams Quiller Hand Relationship Specialty Start Date End Date Oksana Nevarez APRN-CNP [address] [address] PCP - General Nurse Practitioner 05/10/23
--- OUTSIDE RECORDS SUMMARY | 2024-07-23 13:11 | XMS_ITS | Referral Summary ---
Author Organization [facility] [address] Address [facility] [place] [address] Care Team Providers Care Orange Grower Name Role Phone Zenon Dao MD Primary Care Provider Allergies No known active allergies Medications multivit with min-folic acid 200 mcg tablet,chewable Take 1 tablet by mouth labor trainer before breakfast Active Active Problems No known active problems Social History Tobacco Use Types Packs/Day Years Used Date Smoking Tobacco: Never Comments Unknown Sex and Gender Information Value Date Recorded Sex Assigned at Not on file Legal Sex Female 7:01 PM RIVETER AUTOMOBILE BRAKES Gender Identity Not on file Sexual Orientation Not on file Last Filed Vital Signs Vital Sign Reading Time Taken Comments Blood Pressure 134/82 04/21/2021 11:01 AM RIVETER AUTOMOBILE BRAKES Pulse 78 04/21/2021 11:01 AM RIVETER AUTOMOBILE BRAKES Temperature 37.1 C (98.7 F) 03/10/2021 8:47 AM RIVETER AUTOMOBILE BRAKES Respiratory Rate 16 03/10/2021 8:47 AM RIVETER AUTOMOBILE BRAKES Oxygen Saturation 98% 04/21/2021 11:01 AM RIVETER AUTOMOBILE BRAKES Inhaled Oxygen Concentration - - Weight 54 kg (119 lb) 04/21/2021 11:01 AM RIVETER AUTOMOBILE BRAKES Height 167.6 cm (5' 6) 04/21/2021 11:01 AM RIVETER AUTOMOBILE BRAKES Body Mass Index 19.21 04/21/2021 11:01 AM RIVETER AUTOMOBILE BRAKES Plan of Treatment Not on file [place] [place] [address] Care Teams Orange Grower Relationship Specialty Start Date End Date Zenon Dao MD PCP - General Emergency Medicine 03/27/21
== END 2024-07-23 13:09 | disposition home or self-care (01) ==
LOC: ANHIMG 13:09
PROVIDERS: PCP Nurse Practitioner Adult Health; Visit Provider Nurse Practitioner Adult Health
DX: R92.8 Other abnormal and inconclusive findings on diagnostic imaging of breast (principal)
CPT/HCPCS: 76641; 77061; 77065; G0279

== ENCOUNTER 2024-12-29 09:00 | Outpatient (CLI) | payer OTHER, SELFPAY ==
--- OUTSIDE RECORDS SUMMARY | 2024-12-29 09:54 | XMS_ITS | Clinical Summary ---
Author Organization [facility] Address [address] [place] [address] Care Team Providers Care Four Slide Operator Name Role Phone Oksana Nevarez APRN-FIELD REP Primary Care Provider + Source Comments [facility],non-owned Affiliates and Associated Physician Practices is amultiple site organization consisting of ambulatory clinics and hospital sitesin [place], [place], [place] and [place]. This disclosure is being madepursuant to the Care Everywhere program and may not contain all information available regarding this patient. Last updated 17.[facility] Allergies No known active allergies Medications * [...] on file Legal Sex Female 9:59 AM MEXICAN FOOD MACHINE TENDER Gender Identity Not on file Sexual Orientation Not on file Last Filed Vital Signs Vital Sign Reading Time Taken Comments Blood Pressure 139/88 05/10/2023 1:32 PM CDT Pulse 103 05/10/2023 1:32 PM CDT Repeat HR=97 Temperature 36.8 C (98.2 F) 05/10/2023 1:32 PM CDT Respiratory Rate 18 03/09/2019 6:53 PM MEXICAN FOOD MACHINE TENDER Oxygen Saturation 100% 05/10/2023 1:3 2 PM CDT Inhaled Oxygen Concentration - - Weight 59.3 kg (130 lb 12.8 oz) 05/10/2023 1:32 PM CDT Height 167.6 cm (5' 6) 05/10/2023 1:32 PM CDT Body Mass Index 21.11 05/10/2023 1:32 PM CDT Plan of Treatment Health Maintenance Due Date Last Done Comments LIPID TESTING 1984 MAMMOGRAM 1984 HIV SCREENING 01/29/1999 HEPATITIS C SCREENING 01/25/2002 DTAP/TDAP/TD VACCINES (1 - Tdap) 01/29/2003 HEPATITIS B VACCINE (1 of 3 - 19+ 3-dose series) 01/29/2003 PAP SMEAR 01/29/2005 HPV VACCINE (1 - 3-dose SCDM series) 01/29/2011 DEPRESSION SCREENING 02/26/2024 COVID-19 VACCINE (1 - 2023-2 5 season) 2024 INFLUENZA VACCINE (#1) 2024 ZOSTER VACCINE (1 of 2) 01/29/2034 [...] week prior to your last dose Insurance [facility] Care Teams Four Slide Operator Relationship Specialty Start Date End Date Oksana Nevarez APRN-CNP [address] [address] PCP - General Nurse Practitioner 05/10/23
--- OUTSIDE RECORDS SUMMARY | 2024-12-29 09:54 | XMS_ITS | Clinical Summary ---
Author Organization [facility] [address] Address [facility] [place] [address] Care Team Providers Care Rn Peritoneal Dialysis Name Role Phone Zenon Dao MD Primary Care Provider [phone] Allergies No known active allergies Medications multivit with min-folic acid 200 mcg tablet,chewable Take 1 tablet by mouth hunting guide before breakfast Active Active Problems No known active problems Medical History Medical History Date Comments Anxiety Hypertension Family History Medical History Relation Name Comments Hypertension Other Relation Name Status Comments Other Social History Tobacco Use Types Packs/Day Years Used Date Smoking Tobacco: Never Comments Unknown Sex and Gender Information Value Date Recorded Sex Assigned at Not on file Legal Sex Female 7:01 PM AUTOMATION ENGINEERING TECHNICIAN Gender Identity Not on file Sexual Orientation Not on file Last Filed Vital Signs Vital Sign Reading Time Taken Comments Blood Pressure 134/82 04/21/2021 11:01 AM AUTOMATION ENGINEERING TECHNICIAN Pulse 78 04/21/2021 11:01 AM AUTOMATION ENGINEERING TECHNICIAN Temperature 37.1 C (98.7 F) 03/10/2021 8:47 AM AUTOMATION ENGINEERING TECHNICIAN Respiratory Rate 16 03/10/2021 8:47 AM AUTOMATION ENGINEERING TECHNICIAN Oxygen Saturation 98% 04/21/2021 11:01 AM AUTOMATION ENGINEERING TECHNICIAN Inhaled Oxygen Concentration - - Weight 54 kg (119 lb) 04/21/2021 11:01 AM AUTOMATION ENGINEERING TECHNICIAN Height 167.6 cm (5' 6) 04/21/2021 11:01 AM AUTOMATION ENGINEERING TECHNICIAN Body Mass Index 19.21 04/21/2021 11:01 AM AUTOMATION ENGINEERING TECHNICIAN Plan of Treatment Not on file Insurance [facility] Care Teams Rn Peritoneal Dialysis Relationship Specialty Start Date End Date Zenon Dao MD PCP - General Emergency Medicine 03/27/21
[2024-12-29 19:22] LABS: Hematocrit 41.6 % (37.0-47.0); Hemoglobin 13.1 g/dL (12.0-15.0); Immature Granulocyte Percent A 0.2 % (0-0.5); Lymphocytes Absolute Auto 1.70 K/mm3 (0.9-3.2); Mean Corpuscular HGB Conc 31.5 g/dl (32-36); Mean Corpuscular Hemoglobin 30.5 pg (26-34); Mean Corpuscular Volume 96.7 fl (80-100); Nucleated Red Blood Cells Absolute Auto 0.000 K/mm3 (0.0-0.012); Nucleated Red Blood Cells Perc 0.0 % (0.0-0.2); Platelet Count Result 395 k/mm3 (150-375); Red Blood Count 4.30 M/mm3 (4.2-5.4); White Blood Count 5.0 K/mm3 (4.5-10.0)
[2024-12-29 19:41] LABS: Alanine Aminotransferase 51 U/L (6-35); Albumin Level 4.5 g/dL (3.5-5.1); Alkaline Phosphatase 64 U/L (38-126); Anion Gap 7 mmol/L (4-12); Aspartate Amino Transferase 93 U/L (14-36); Bilirubin,Total 0.5 mg/dL (0.2-1.3); Blood Urea Nitrogen 12 mg/dL (7-17); Calcium 8.7 mg/dL (8.4-10.2); Carbon Dioxide 27 mmol/L (22-30); Chloride 100 mmol/L (98-107); Cholesterol 209 mg/dL (0-200); Estimated Glomerular Filt Rate > 60; Glucose 81 mg/dL (65-110); HDL Direct 49 mg/dL; Magnesium 2.2 mg/dL (1.6-2.3); Potassium 4.5 mmol/L (3.4-5.0); Sodium 134 mmol/L (137-145); Total Protein 7.9 g/dL (6.3-8.2); Triglycerides 82 mg/dL (<150)
[2024-12-29 20:26] LABS: Thyroid Stimulating Hormone 1.830 uIU/mL (0.465-4.680)
== END 2024-12-29 09:01 | disposition home or self-care (01) ==
LOC: ANHBWCLAB 09:02
PROVIDERS: PCP Nurse Practitioner Adult Health; Visit Provider Nurse Practitioner Adult Health
DX: Z00.00 Encounter for general adult medical examination without abnormal findings (principal); I10 Essential (primary) hypertension
CPT/HCPCS: 36415; 80053; 80061; 83735; 84443; 85025